=== PATIENT | female | born 1940 | race American Indian/Alaskan Native ===

== ENCOUNTER 2017-03-29 10:19 | Outpatient (CLI) | payer MEDICARE ==
[2017-03-29 10:42] LABS: Mean Corpuscular HGB Conc 34 % (30-34); Mean Corpuscular Hemoglobin 34 pg (28-32); Mean Corpuscular Volume 102 fl (79-97); Red Blood Count 1.65 M/mm3 (3.65-5.03); Red Cell Distribution Width 17.4 % (13.2-15.2); White Blood Count 3.8 K/mm3 (4.5-11.0)
[2017-03-29 10:44] LABS: Platelet Count 86 K/mm3 (140-440)
[2017-03-29 10:55] LABS: Hematocrit 16.8 % (30.3-42.9); Hemoglobin 5.7 gm/dl (10.1-14.3)
[2017-03-29 11:25] LABS: Bilirubin,Urine NEG (Negative); Blood,Urine SM (Negative); Ketones,Urine NEG (Negative); Leukocyte Esterase,Urine TR (Negative); Mucus,Urine FEW /HPF; Nitrite,Urine NEG (Negative); Urobilinogen,Urine < 2.0 mg/dL (<2.0)
[2017-03-29 13:55] LABS: Albumin 3.7 g/dL (3.9-5); Calcium 7.4 mg/dL (8.4-10.2); Phosphorous 5.4 mg/dL (2.5-4.5); Potassium 3.6 mmol/L (3.6-5.0)
== END 2017-03-29 10:20 | disposition home or self-care (01) ==
LOC: LAB 10:19
PROVIDERS: ATTEND Internal Medicine Nephrology
DX: N18.4 Chronic kidney disease, stage 4 (severe) (principal); D63.1 Anemia in chronic kidney disease
CPT/HCPCS: 36415; 80048; 81001; 82040; 82570; 84100; 84156; 85027

== ENCOUNTER 2017-04-10 12:36 | Outpatient (CLI) | payer MEDICARE ==
[2017-04-10 12:44] LABS: Hematocrit 24.9 % (30.3-42.9); Hemoglobin 8.4 gm/dl (10.1-14.3); Mean Corpuscular HGB Conc 34 % (30-34); Mean Corpuscular Hemoglobin 32 pg (28-32); Mean Corpuscular Volume 95 fl (79-97); Platelet Count 119 K/mm3 (140-440); Red Blood Count 2.63 M/mm3 (3.65-5.03); White Blood Count 5.6 K/mm3 (4.5-11.0)
[2017-04-10 12:45] LABS: Red Cell Distribution Width 20.9 % (13.2-15.2)
[2017-04-10 13:02] LABS: Albumin 3.5 g/dL (3.9-5); BUN/Creatinine Ratio 9.26; Calcium 6.9 mg/dL (8.4-10.2); Chloride 104.5 mmol/L (98-107); Phosphorous 5.5 mg/dL (2.5-4.5); Potassium 3.9 mmol/L (3.6-5.0)
== END 2017-04-10 12:37 | disposition home or self-care (01) ==
LOC: LAB 12:36
PROVIDERS: ATTEND Internal Medicine Nephrology
DX: I12.9 Hypertensive chronic kidney disease with stage 1 through stage 4 chronic kidney disease, or unspecified chronic kidney disease (principal); N18.4 Chronic kidney disease, stage 4 (severe); D63.1 Anemia in chronic kidney disease
CPT/HCPCS: 36415; 80048; 82040; 84100; 85027

== ENCOUNTER 2017-04-10 16:44 | Inpatient (IN) | payer MEDICARE ==
[2017-04-10 19:41] LABS: BUN/Creatinine Ratio 10.25; Chloride 102.7 mmol/L (98-107); Potassium 3.6 mmol/L (3.6-5.0)
[2017-04-10 19:52] LABS: Hemoglobin 8.3 gm/dl (10.1-14.3); Mean Corpuscular HGB Conc 33 % (30-34); Mean Corpuscular Hemoglobin 31 pg (28-32); Mean Corpuscular Volume 95 fl (79-97); Platelet Count 117 K/mm3 (140-440); Red Blood Count 2.64 M/mm3 (3.65-5.03); White Blood Count 5.7 K/mm3 (4.5-11.0)
[2017-04-10 19:58] LABS: Red Cell Distribution Width 20.9 % (13.2-15.2)
[2017-04-10] MEDS ORDERED: APRESOLINE IV PRN (20:55)
[2017-04-10] MEDS ORDERED: PERCOCET 5/325 PO PRN (20:56)
--- NOTE | 2017-04-10 21:06 | History and Physical Report ---
History of Present Illness Date of examination: 04/10/17 Date of admission: 04/10/17 18:02 Chief complaint: Feeling tired, bilateral leg swelling History of present illness: 76-year-old -[place] female with past medical history CKD, Hypertension , anemia, multiple myeloma is referred from Dr. Piper's clinic. She has been complaining weakness, bilateral legs and pain in her feet. Patient denied SOB. Patient didn't have any other complaints. The patient has ashy face. 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 REVIEW OF SYSTEMS: GENERAL: no weight change, no fatigue, no fever HEAD: no head ache EYES: no blurry vision, no acute visual loss EARS: no hearing loss, no discharge, no earache NOSE: no stuffiness, no sneezing, no discharge MOUTH, THROAT AND NECK: no bleeding gums, no sore throat, no swollen neck CARDIAC: no palpitations, no dyspnea on exertion, no orthopnea, no PND, + edema , no chest pain RESPIRATORY: no shortness of breath, no wheeze, no cough, no sputum, no hemoptysis, no asthma GI: no decreased appetite, no nausea, no vomiting, no dysphagia, no diarrhea, no constipation, no abdominal pain URINARY: no change in frequency, no urgency, no polyuria, no hematuria, no incontinence MUSCULOSKELETAL: no muscle weakness, no joint stiffness NEUROLOGIC: no loss of sensation/numbness, no tingling, no tremors, no weakness/ paralysis HEMATOLOGIC: no anemia, no easy bruising SKIN: no rashes ENDOCRINE: no heat/cold intolerance, no polyuria, no polydipsia, no thyroid problems, no diabetes PSYCHIATRIC: no anxiety, no depression, no suicidal ideations Past History Past Medical History: cancer, hypertension, renal failure Past Surgical History: hysterectomy Social history: smoking (5 cigaretes a day), full code. denies: alcohol abuse, prescription drug abuse, IV drug use Family history: no significant family history Medications and Allergies Allergies Allergy/AdvReac Type Severity Reaction Status Date / Time No Known Allergies Allergy Unverified 09/15/14 20:53 Home Medications Medication Instructions Recorded Confirmed Last Taken Type Simvastatin 20 mg PO QDAY 09/15/14 03/29/17 08/14/16 History 20mg Allopurinol [Allopurinol] 100 mg PO TID 08/15/16 03/29/1708/15/16 History 100mg Hydrochlorothiazide 25 mg PO DAILY 08/15/16 03/29/17 08/15/16 History [Hydrochlorothiazide] 25mg Aspirin [Aspirin BABY CHEW TAB] 81 mg PO QDAY 03/29/17 03/29/17 Unknown History Lenalidomide [Revlimid] 1 tab PO QDAY 03/29/17 03/29/17 Unknown History Doxazosin Mesylate [Cardura] 2 mg PO QHS #30 tablet 04/01/17 Unknown Rx Folic Acid [Folvite] 1 mg PO QDAY #30 tablet 04/01/17 Unknown Rx Metoprolol [Lopressor TAB] 25 mg PO BID #60 tablet 04/01/17 Unknown Rx Pantoprazole [Protonix TAB] 40 mg PO QDAY #30 tablet 04/01/17 Unknown Rx Pregabalin [Lyrica] 1 tab PO BID #60 capsule 04/01/17 Unknown Rx diphenhydrAMINE [Benadryl CAP] 50 mg PO Q8H PRN #25 capsule 04/01/17 Unknown Rx oxyCODONE /ACETAMINOPHEN [Percocet 1 tab PO Q12H PRN #25 tablet 04/01/17 Unknown Rx 5/325 mg] Active Meds: Active Medications Allopurinol (Zyloprim) 100 mg PO TID [facility] Aspirin (Baby Aspirin) 81 mg PO QDAY [facility] Diphenhydramine HCl (Benadryl) 50 mg PO Q8H PRN PRN Reason: Itching Folic Acid (Folvite) 1 mg PO QDAY [facility] Heparin Sodium (Porcine) (Heparin) 5,000 unit SUB-Q Q12HR [facility] Hydralazine HCl (Apresoline) 20 mg IV Q4HR PRN PRN Reason: Hypertension Hydrochlorothiazide (Hctz) 25 mg PO DAILY [facility] Metoprolol Tartrate (Lopressor) 25 mg PO BID [facility] Miscellaneous Medication (Doxazosin Mesylate [Cardura]) 2 mg PO QHS [facility] Oxycodone/Acetaminophen (Percocet 5/325) 1 tab PO Q12H PRN PRN Reason: Pain Pantoprazole Sodium (Protonix) 40 mg PO QDAY [facility] Pregabalin (Lyrica) 75 mg PO BID [facility] Pregabalin (Lyrica) 25 mg PO BID [facility] Simvastatin (Zocor) 20 mg PO QDAY [facility] Exam - Physical Exam Narrative exam: patient has Ashy face. Not in cardiopulmonary distress. The patient appeared well nourished and normally developed. Vital signs as documented. Head exam is unremarkable. No scleral icterus . Neck is without jugular venous distension, thyromegaly, or carotid bruits. Lungs are clear to auscultation. Cardiac exam reveals regular rate and Rhythm. First and second heart sounds normal. No murmurs, rubs or gallops. Abdominal exam reveals normal bowel sounds, no masses, no organomegaly and no aortic enlargement. Extremities +2 pedal and pretibial edema. PATROL LADY: Alert and oriented 3. No focal weakness. - Constitutional Vitals: Temp Pulse Resp BP Pulse Ox 98.7 F 51 L 20 172/52 04/10/17 19:02 04/10/17 19:02 04/10/17 19:02 04/10/17 19:02 Results - Labs CBC & Chem 7: 04/10/17 19:07 04/10/17 19:07 Labs: Laboratory Last Values WBC 5.7 K/mm3 (4.5-11.0) 04/10/17 19:07 RBC 2.64 M/mm3 (3.65-5.03) L 04/10/17 19:07 Hgb 8.3 gm/dl (10.1-14.3) L 04/10/17 19:07 Hct 25.0 % (30.3-42.9) L 04/10/17 19:07 MCV 95 fl (79-97) 04/10/17 19:07 MCH 31 pg (28-32) 04/10/17 19:07 MCHC 33 % (30-34) 04/10/17 19:07 RDW 20.9 % (13.2-15.2) H 04/10/17 19:07 Plt Count 117 K/mm3 (140-440) L 04/10/17 19:07 Sodium 143 mmol/L (137-145) 04/10/17 19:07 Potassium 3.6 mmol/L (3.6-5.0) 04/10/17 19:07 Chloride 102.7 mmol/L (98-107) 04/10/17 19:07 Carbon Dioxide 23 mmol/L (22-30) 04/10/17 19:07 BUN 40 mg/dL (7-17) H 04/10/17 19:07 Creatinine 3.9 mg/dL (0.7-1.2) H 04/10/17 19:07 Estimated GFR 14 ml/min 04/10/17 19:07 BUN/Creatinine Ratio 10.25 % 04/10/17 19:07 Glucose 96 mg/dL (65-100) 04/10/17 19:07 Calcium 7.0 mg/dL (8.4-10.2) L 04/10/17 19:07 Assessment and Plan Assessment and plan: ESRD needs HD Uremia Anemia of end stage renal disease Multiple myeloma Hyperlipidemia - Patient to be admitted to medical floor - Dr. Piper wants to start dialysis tomorrow - Hematology / oncology consulted - resume home medications - No breathing problems Prophylaxis - Heparin Advance Directives: Yes VTE prophylaxis?: Chemical Plan of care discussed with patient/family: Yes
[2017-04-10] MEDS ORDERED: PREGABALIN PO SCH (22:00)
[2017-04-10] MEDS ORDERED: CARDURA PO SCH (22:00)
[2017-04-10] MEDS: LYRICA PO SCH ×2 (22:26)
[2017-04-10] MEDS: LOPRESSOR PO SCH (22:27)
[2017-04-10] MEDS: HEPARIN SUB-Q SCH (22:28)
[2017-04-11] MEDS: BENADRYL PO PRN (02:49)
--- NOTE | 2017-04-11 07:52 | XRay Report ---
AP CHEST: HISTORY: Fluid overload, shortness of breath No comparison. Mild cardiomegaly with normal pulmonary vascularity is present. The lungs are clear. No large pleural effusion, infiltrate or pneumothorax. IMPRESSION: Mild cardiomegaly.
[2017-04-11] MEDS: HEPARIN SUB-Q SCH ×2 (09:42→21:47)
[2017-04-11] MEDS: FOLVITE PO SCH (09:43)
[2017-04-11] MEDS: BABY ASPIRIN PO SCH (09:43)
[2017-04-11] MEDS: ZOCOR PO SCH (09:44)
[2017-04-11] MEDS: LYRICA PO SCH ×4 (09:45→21:48)
[2017-04-11] MEDS: LOPRESSOR PO SCH ×2 (09:46→21:49)
[2017-04-11] MEDS ORDERED: HCTZ PO SCH (10:00)
[2017-04-11] MEDS ORDERED: PROTONIX PO SCH (10:00)
--- NOTE | 2017-04-11 10:11 | Admit Criteria Form ---
Admission Criteria Documentation: RENAL FAILURE, CHRONIC Clinical Indications for Admission to Inpatient Care (Place 'X' for any and all applicable criteria): Admission is indicated for ANY ONE of the following (1)(2)(3)(4)(5): [X]I. Inpatient admission required rather than observation care (Use Renal Failure, Chronic: Observation Care Criteria as appropriate) because of ANY ONE of the following: [X]a) Volume overload or uremic symptoms (eg, clinically significant pulmonary edema, hypertension, pericarditis, acidosis) too severe for, or not responsive (eg, for over 24 hours) to emergency department or observation care dialysis or treatment regimen (11) [ ]b) Hemodynamic instability that is severe or persistent [ ]c) Respiratory distress that is severe or persistent (11) [ ]d) Clinically significant electrolyte abnormality that requires inpatient care (eg,hyperkalemia with severe ECG findings)[B] [ ]e) Supplement O2 or respiratory therapy for over 24hrs that is performable only in acute inpatient setting [ ]f) Continuous IV infusion of anticoagulation, platelet inhibitor, vasoactive, or Antiarrhythmic medication (15), [ ]g) Pulmonary artery catheter monitoring [ ]h) Temporary pacemaker placement [ ]i) Emergent pericardiocentesis [ ]j) Other condition, treatment or monitoring requiring inpatient admission [ ]II. Unexplained syncope [A] [ ]III. Recurrent seizures [ ]IV. Severe infections not treatable in outpatient setting (eg, peritonitis)(9 ) [ ]V. Cardiac arrhythmias of immediate concern [ ]. Encephalopathy [ ]VII.Bleeding abnormalities (eg, platelet dysfunction) with active (eg, gastrointestinal) bleeding Extended stay beyond goal length of stay may be needed for (3)(4)(35)(36): [ ]a) Continuing uremic complications [ ]b) Comorbidities or complications The original [employer] content created by [employer] has been revised. The portions of the content which have been revised are identified through the use of italic text or in bold, and [email or web address] has neither reviewed nor approved the modified material. All other unmodified content is copyright [employer]. Please see references footnoted in the original [email or web address] edition 2016 Admission Criteria Met: Yes
[2017-04-11] MEDS: ZYLOPRIM PO SCH (14:45)
--- NOTE | 2017-04-11 15:49 | Consultation ---
History of Present Illness - History of Present Illness Thank you for the consultation Patient was evaluated around 9:45 in the morning Care plan was discussed with patient as well as the daughters at the bedside Assessment and plan Acute on chronic renal failure patient has been symptomatic with COPD but currently creatinine has been improving I do not see any emergent indication for renal replacement therapy as patient clinically appears to be doing better At this time she will need a 24-hour urine for protein and creatinine as well as creatinine clearance If her renal function remained stable we can consider initiating diuresis She is in need for further workup of her acute renal failure that has been on top of chronic baseline creatinine has been around 2 or less Discussed with her oncologist Dr. khalil and according to him her myeloma has been in remission, we'll order new immunofixation Significant edema bilateral lower extremity please consider a venous Doppler to make sure the patient does not have DVT We'll continue to follow and make recommendations from renal standpoint It has been noted that patient has been very poorly compliant with her diet and lifestyle and needs to make significant changes Her renal prognosis and overall prognosis remains very guarded due to multiple comorbidities and advanced age Families aware about her prognosis overall along with the patient the care plan was discussed with her permission with 2 other daughters syndrome Past History Past Medical History: cancer, hypertension, renal failure Past Surgical History: hysterectomy Social history: smoking (5 cigaretes a day), full code. denies: alcohol abuse, prescription drug abuse, IV drug use Family history: no significant family history Medications and Allergies Allergies Allergy/AdvReac Type Severity Reaction Status Date / Time No Known Allergies Allergy Unverified 09/15/14 20:53 Home Medications Medication Instructions Recorded Confirmed Last Taken Type Simvastatin 20 mg PO QDAY 09/15/14 03/29/17 08/14/16 History 20mg Allopurinol [Allopurinol] 100 mg PO QDAY 08/15/16 04/10/17 08/15/16 History 100mg Hydrochlorothiazide 25 mg PO DAILY 08/15/16 03/29/17 08/15/16 History [Hydrochlorothiazide] 25mg Aspirin [Aspirin BABY CHEW TAB] 81 mg PO QDAY 03/29/17 03/29/17 Unknown History Doxazosin Mesylate [Cardura] 2 mg PO QHS #30 tablet 04/01/17 Unknown Rx Folic Acid [Folvite] 1 mg PO QDAY #30 tablet 04/01/17 Unknown Rx Metoprolol [Lopressor TAB] 25 mg PO BID #60 tablet 04/01/17 Unknown Rx Pantoprazole [Protonix TAB] 40 mg PO QDAY #30 tablet 04/01/17 Unknown Rx Pregabalin [Lyrica] 1 tab PO BID #60 capsule 04/01/17 Unknown Rx diphenhydrAMINE [Benadryl CAP] 50 mg PO Q8H PRN #25 capsule 04/01/17 Unknown Rx oxyCODONE /ACETAMINOPHEN [Percocet 1 tab PO Q12H PRN #25 tablet 04/01/17 Unknown Rx 5/325 mg] Amlodipine Besylate 10 mg PO QDAY 04/10/17 04/10/17 Unknown History Active Meds: Active Medications Allopurinol (Zyloprim) 100 mg PO DAILY [facility] [place] Last Admin: 04/11/17 14:45 Dose: 100 mg Aspirin (Baby Aspirin) 81 mg PO QDAY [facility] Last Admin: 04/11/17 09:43 Dose: 81 mg Diphenhydramine HCl (Benadryl) 50 mg PO Q8H PRN PRN Reason: Itching Last Admin: 04/11/17 02:49 Dose: 50 mg Doxazosin Mesylate (Cardura) 2 mg PO QHS [facility] Last Admin: 04/10/17 22:26 Dose: 2 mg Folic Acid (Folvite) 1 mg PO QDAY [facility] [place] Last Admin: 04/11/17 09:43 Dose: 1 mg Heparin Sodium (Porcine) (Heparin) 5,000 unit SUB-Q Q12HR [facility] [place] Last Admin: 04/11/17 09:42 Dose: 5,000 unit Hydralazine HCl (Apresoline) 20 mg IV Q4HR PRN PRN Reason: Hypertension Hydrochlorothiazide (Hctz) 25 mg PO DAILY [facility] Last Admin: 04/11/17 09:44 Dose: 25 mg Metoprolol Tartrate (Lopressor) 25 mg PO BID [facility] Last Admin: 04/11/17 09:46 Dose: Not Given Oxycodone/Acetaminophen (Percocet 5/325) 1 tab PO Q12H PRN PRN Reason: Pain Pantoprazole Sodium (Protonix) 40 mg PO QDAY [facility] [place] Last Admin: 04/11/17 09:44 Dose: 40 mg Pregabalin (Lyrica) 75 mg PO BID [facility] Last Admin: 04/11/17 09:45 Dose: 75 mg Pregabalin (Lyrica) 25 mg PO BID [facility] Last Admin: 04/11/17 09:51 Dose: 25 mg Simvastatin (Zocor) 20 mg PO QDAY [facility] Last Admin: 04/11/17 09:44 Dose: 20 mg Exam - Vital Signs Vital signs: Vital Signs Temp Pulse Resp BP 98.7 F 51 L 20 172/52 04/10/17 19:02 04/10/17 19:02 04/10/17 19:02 04/10/17 19:02 Results - Lab Results 04/10/17 19:07 04/10/17 19:07 Most recent lab results Calcium 7.0 mg/dL (8.4-10.2) L 04/10/17 19:07
--- NOTE | 2017-04-11 17:29 | Progress Note ---
Assessment and Plan Assessment and plan: I admitted patient on 03/29/2017 for symptomatic anemia, She was discharged on by Dr. Todd. Patient is 76 yo woman with a history MMM (patient was told MMM was in remission ), htn, dlp, gout, neuropathy, chronic anemia, tobacco dependency, chronic pain syndrome and chronic kidney disease stage III with baseline creatinine 1.7 who presents as a direct admit from Dr. Piper to start hemodialysis by Hospitalist Dr. Kennedy. Her Primary care is Dr. Julian; Hematology/oncology is Dr Ryan/ Dr Michael at [facility] -Worsening CK D stage III: Nephrology is following, order a 24-hour urine for protein -Hypertension: continue to monitor -Bilateral leg edema, Dr. Piper mention venous doppler: will order -MMM: Dr. Piper ordering immunofixation studies. -DVT prophylaxis: scd only due to thrombocytopenia, heme/onc has been consulted History Interval history: Patient seen and examined. Follow up on acute renal failure. Overnight uneventful. No cp, sob, n/v or severe headaches. Imaging, old records, testing, labs, nursing notes reviewed. Daughters Ly and Agustina at bedside. Daughter Ly is very vulgar and using foul language==>She states, "i don't like this rotating doctors, we saw that analisa Mcgregor chinmay and we say this Piper chinmay and I just don't like it." Then she left the hospital room. Hospitalist Physical - Physical exam Narrative exam: GEN: WDWN, NAD, AWAKE, ALERT, ORIENTATED 3 CVS: RRR, NORMAL S1S2 LUNGS/CHEST: CTA B, NORMAL CHEST EXPANSION B, GOOD AIR ENTRY B ABD: SOFT NTND, GBS, NO REBOUND OR GUARDING MSK: FROM X 4 EXTREMITIES EXT: Significant bilateral leg edema NEURO: CN 2-12 GROSSLY INTACT, NO new FOCAL DEFICITS PSY: CALM - Constitutional Vitals: Temp Pulse Resp BP Pulse Ox 99.9 F H 57 L 18 147/50 04/11/17 09:43 04/11/17 09:46 04/11/17 09:43 04/11/17 09:46 Results - Labs CBC & Chem 7: 04/10/17 19:07 04/10/17 19:07 Labs: Laboratory Last Values WBC 5.7 K/mm3 (4.5-11.0) 04/10/17 19:07 RBC 2.64 M/mm3 (3.65-5.03) L 04/10/17 19:07 Hgb 8.3 gm/dl (10.1-14.3) L 04/10/17 19:07 Hct 25.0 % (30.3-42.9) L 04/10/17 19:07 MCV 95 fl (79-97) 04/10/17 19:07 MCH 31 pg (28-32) 04/10/17 19:07 MCHC 33 % (30-34) 04/10/17 19:07 RDW 20.9 % (13.2-15.2) H 04/10/17 19:07 Plt Count 117 K/mm3 (140-440) L 04/10/17 19:07 Sodium 143 mmol/L (137-145) 04/10/17 19:07 Potassium 3.6 mmol/L (3.6-5.0) 04/10/17 19:07 Chloride 102.7 mmol/L (98-107) 04/10/17 19:07 Carbon Dioxide 23 mmol/L (22-30) 04/10/17 19:07 BUN 40 mg/dL (7-17) H 04/10/17 19:07 Creatinine 3.9 mg/dL (0.7-1.2) H 04/10/17 19:07 Estimated GFR 14 ml/min 04/10/17 19:07 BUN/Creatinine Ratio 10.25 % 04/10/17 19:07 Glucose 96 mg/dL (65-100) 04/10/17 19:07 Calcium 7.0 mg/dL (8.4-10.2) L 04/10/17 19:07 Hepatitis A IgM Ab Non-reactive (NonReactive) 04/11/17 10:33 Hep Bs Antigen Non-reactive (Negative) 04/11/17 10:33 Hep B Core IgM Ab Non-reactive (NonReactive) 04/11/17 10:33 Hepatitis C Antibody Reactive (NonReactive) 04/11/17 10:33
[2017-04-11] MEDS ORDERED: CARDURA PO SCH ×2 (21:08→22:00)
--- NOTE | 2017-04-12 07:49 | Ultrasound Report ---
ULTRASOUND RENAL BILATERAL HISTORY: Worsening renal failure. TECHNIQUE: transabdominal ultrasound with color Doppler interrogation. FINDINGS: The right kidney measures 10.0 x 5.0 x 4.5cm. Right renal cortex: 1.3cm. The left kidney measures 11.9 x 5.0 x 5.4cm. Left renal cortex: 1.5cm. The kidneys are normal size, contour and position. There is increased renal parenchymal echotexture bilaterally. Corticomedullary differentiation is preserved. No evidence for cystic disease, mass, nephrolithiasis, hydronephrosis or perinephric fluid. The views of the bladder and the region of the ureters appear normal. IMPRESSION: Renal parenchymal disease. No significant change is demonstrated since 03/30/17.
[2017-04-12] MEDS: ZYLOPRIM PO SCH (10:27)
[2017-04-12] MEDS: LYRICA PO SCH ×2 (10:27→10:28)
[2017-04-12] MEDS: ZOCOR PO SCH (10:28)
[2017-04-12] MEDS: BABY ASPIRIN PO SCH (10:28)
[2017-04-12] MEDS: FOLVITE PO SCH (10:29)
[2017-04-12] MEDS: LOPRESSOR PO SCH (10:29)
[2017-04-12] MEDS: HEPARIN SUB-Q SCH (10:29)
[2017-04-12 10:32] VITALS: BP 149/50
[2017-04-12] MEDS: BENADRYL PO PRN (11:11)
--- NOTE | 2017-04-12 12:38 | Progress Note ---
Assessment and Plan Assessment and plan: I admitted patient on 03/29/2017 for symptomatic anemia, She was discharged on by Dr. Todd. Patient is 76 yo woman with a history MMM (patient was told MMM was in remission ), htn, dlp, gout, neuropathy, chronic anemia, tobacco dependency, chronic pain syndrome and chronic kidney disease stage III with baseline creatinine 1.7 who presents as a direct admit from Dr. Piper to start hemodialysis by Hospitalist Dr. Kennedy. Her Primary care is Dr. Julian; Hematology/oncology is Dr Ryan/ Dr Michael at [facility] -Worsening CK D stage III: Nephrology is following, order a 24-hour urine for protein -Hypertension: continue to monitor -Bilateral leg edema, Dr. Piper mention venous doppler: will order -MMM: Dr. Piper ordering immunofixation studies. -DVT prophylaxis: scd only due to thrombocytopenia, heme/onc has been consulted discharge once cleared by Renal, ?vas cath placement History Interval history: Patient seen and examined. Follow up on acute renal failure. Overnight uneventful. No cp, sob, n/v or severe headaches. Imaging, old records, testing, labs, nursing notes reviewed. Daughter Ly at bedside, she is very rude and nasty. She is very abrusive and argumentative with her mother. Daughter started yelling at her mother, "you get dementia when you get here, you don't nothing". Hospitalist Physical - Physical exam Narrative exam: GEN: WDWN, NAD, AWAKE, ALERT, ORIENTATED 3 CVS: RRR, NORMAL S1S2 LUNGS/CHEST: CTA B, NORMAL CHEST EXPANSION B, GOOD AIR ENTRY B ABD: SOFT NTND, GBS, NO REBOUND OR GUARDING MSK: FROM X 4 EXTREMITIES EXT: Significant bilateral leg edema NEURO: CN 2-12 GROSSLY INTACT, NO new FOCAL DEFICITS PSY: CALM - Constitutional Vitals: Temp Pulse Resp BP Pulse Ox 98.2 F 60 18 149/50 98 04/12/17 10:00 04/12/17 10:29 04/12/17 10:00 04/12/17 10:29 04/12/17 10:00 Results - Labs CBC & Chem 7: 04/10/17 19:07 04/10/17 19:07 Labs: Laboratory Last Values WBC 5.7 K/mm3 (4.5-11.0) 05/22/17 19:07 RBC 2.64 M/mm3 (3.65-5.03) L 04/10/17 19:07 Hgb 8.3 gm/dl (10.1-14.3) L 04/10/17 19:07 Hct 25.0 % (30.3-42.9) L 04/10/17 19:07 MCV 95 fl (79-97) 04/10/17 19:07 MCH 31 pg (28-32) 04/10/17 19:07 MCHC 33 % (30-34) 04/10/17 19:07 RDW 20.9 % (13.2-15.2) H 04/10/17 19:07 Plt Count 117 K/mm3 (140-440) L 04/10/17 19:07 Sodium 143 mmol/L (137-145) 04/10/17 19:07 Potassium 3.6 mmol/L (3.6-5.0) 04/10/17 19:07 Chloride 102.7 mmol/L (98-107) 04/10/17 19:07 Carbon Dioxide 23 mmol/L (22-30) 04/10/17 19:07 BUN 40 mg/dL (7-17) H 04/10/17 19:07 Creatinine 3.9 mg/dL (0.7-1.2) H 04/10/17 19:07 Estimated GFR 14 ml/min 04/10/17 19:07 BUN/Creatinine Ratio 10.25 % 04/10/17 19:07 Glucose 96 mg/dL (65-100) 04/10/17 19:07 Calcium 7.0 mg/dL (8.4-10.2) L 04/10/17 19:07 Hepatitis A IgM Ab Non-reactive (NonReactive) 04/11/17 10:33 Hep Bs Antigen Non-reactive (Negative) 04/11/17 10:33 Hep B Core IgM Ab Non-reactive (NonReactive) 04/11/17 10:33 Hepatitis C Antibody Reactive (NonReactive) 04/11/17 10:33
--- NOTE | 2017-04-12 12:44 | Discharge Summary ---
Providers - Providers Date of Admission: 04/10/17 18:02 Date of discharge: 04/12/17 Attending physician: ALEX MONTANEZ 04/10/17 18:05 Consult to Physician [CONS] Routine Consulting Provider: BAYRON PIPER Reason For Exam: ACUTE RENAL FAILURE, [place], Place consult to:: DR. BAYRON PIPER Notified:: Phone number called:: [phone] Was contact made?: Yes If yes, spoke with:: NATACHA Time called:: 09:21 04/10/17 18:31 Consult to Physician [CONS] Routine Consulting Provider: JARET BUCK Reason For Exam: myeloma Place consult to:: Notified:: Phone number called:: [phone] Was contact made?: Yes If yes, spoke with:: NATE Time called:: 09:26 Primary care physician: [employer] Hospitalization Condition: Stable Hospital course: Patient is 76 yo woman with a history MMM (patient was told MMM was in remission ), htn, dlp, gout, neuropathy, chronic anemia, tobacco dependency, chronic pain syndrome and chronic kidney disease stage III with baseline creatinine 1.7 who presents as a direct admit from Dr. Piper to start hemodialysis by Hospitalist Dr. Kennedy. Her Primary care is Dr. Julian; Hematology/oncology is Dr Ryan/ Dr Michael at [facility]. I admitted patient on 03/29/2017 for symptomatic anemia, She was discharged on 04/01/[address] Todd. -Worsening CK D stage III: Nephrology is following, order a 24-hour urine collected, Dr. Piper will follow results -Hypertension: continue to monitor -Bilateral leg edema, Dr. Piper mention B. venous doppler: will order, negative for dvt, d/w Dr. ray get echo and she will follow the results per Dr. Ray -MMM: Dr. Piper ordering immunofixation studies. -DVT prophylaxis: scd only due to thrombocytopenia, heme/onc has been consulted discharge once cleared by Renal, ?vas cath placement Disposition: DISCHARGED TO HOME OR SELFCARE Time spent for discharge: 36 minutes Core Measure Documentation - Palliative Care Palliative Care/ Comfort Measures: Not Applicable - Core Measures Any of the following diagnoses?: none - VTE Discharge Requirements Deep Vein Thrombosis/Pulmonary Embolism Present on Admission: No Has pt received <5 days of overlap therapy or INR<2.0: No Anticoagulant overlap therapy prescribed at discharge: No Contraindication No Overlap Therapy order at DC: Not Indicated Exam - Physical Exam Narrative exam: GEN: WDWN, NAD, AWAKE, ALERT, ORIENTATED 3 CVS: RRR, NORMAL S1S2 LUNGS/CHEST: CTA B, NORMAL CHEST EXPANSION B, GOOD AIR ENTRY B ABD: SOFT NTND, GBS, NO REBOUND OR GUARDING MSK: FROM X 4 EXTREMITIES EXT: Significant bilateral leg edema NEURO: CN 2-12 GROSSLY INTACT, NO new FOCAL DEFICITS PSY: CALM - Constitutional Vitals: Temp Pulse Resp BP Pulse Ox 98.2 F 60 18 149/50 98 04/12/17 10:00 04/12/17 10:29 04/12/17 10:00 04/12/17 10:29 04/12/17 10:00 Plan Activity: advance as tolerated (no strenous activites until cleared by PCP. ) Diet: low salt Follow up with: PRIMARY CAREMD [Primary Care Provider] - 7 Days Prescriptions: oxyCODONE /ACETAMINOPHEN [Percocet 5/325 mg] 1 tab PO Q12H PRN #25 tablet PRN Reason: Pain
--- NOTE | 2017-04-12 12:53 | Progress Note ---
Assessment and Plan - Patient Problems (1) Acute on chronic renal insufficiency Current Visit: No Status: Acute Plan to address problem: non oliguric, may be prerenal or CKD progression. No acute indication for dialysis at present. Will follow up as outpt, get AVF for future dialysis. Daughter is concerned about pedal edema- may try small dose of loop diuretic. Check LVEF and venous duplex study of lower extremities. 24 hr urine cr.cl- inaccurate-spoke with lab. Discussed with -hospitalist. Advised pt on low salt diet (2) Edema Current Visit: Yes Status: Acute Qualifiers: Edema type: E Malnutrition edema type: M Trimester: T (3) Anemia in CKD (chronic kidney disease) Current Visit: Yes Status: Acute Plan to address problem: procrit as ordered. Pt is followed by for anemia with weekly Epogen shots (4) Multiple myeloma Current Visit: No Status: Acute Qualifiers: Multiple myeloma remission status: M Subjective Date of service: 04/12/17 Interval history: pt is alert, oriented, denies CP or SOB. C/O swelling over feet-same Objective - Vital Signs Vital signs: Vital Signs - 12hr 04/12/17 04/12/17 04/12/17 01:11 10:00 10:29 Temperature 98.2 F Pulse Rate 54 L 60 Pulse Rate [ 60 Left] Respiratory 18 Rate Blood Pressure 168/58 149/50 Blood Pressure 149/50 [Left Arm] O2 Sat by Pulse 98 Oximetry - General Appearance General appearance: well-developed EENT: mucous membranes moist Neck: no JVD, no thyromegaly Respiratory: Present: Clear to Ascultation Cardiology: regular, systolic murmur Gastrointestinal: normoactive bowel sounds Neurologic: alert and oriented x3 Musculoskeletal: other (1+ edema on dorsum of feet) Psychiatric: mood/affect appropriate, cooperative - Lab 04/10/17 19:07 04/10/17 19:07 Most recent lab results Calcium 7.0 mg/dL (8.4-10.2) L 04/10/17 19:07 - Imaging Kidney/bladder ultrasound: report reviewed
[2017-04-12] MEDS ORDERED: PROCRIT SUB-Q ONE (15:00)
--- NOTE | 2017-04-13 08:21 | Vascular Lab Report ---
LOWER EXTREMITY VENOUS DUPLEX: REASON FOR EXAM: Swelling of the lower extremities. COMMENTS ON THE RIGHT: All veins visualized are freely compressible without evidence of internal echogenicity. Flow is spontaneous and phasic throughout. COMMENTS ON THE LEFT: All veins visualized are freely compressible without evidence of internal echogenicity. Flow is spontaneous and phasic throughout. IMPRESSION: No evidence of acute or chronic deep venous thrombosis in either lower extremity.
== END 2017-04-12 17:38 | disposition home or self-care (01) | DRG 682 ==
LOC: ED 16:44 → 3A 18:02 → CC2 18:37
PROVIDERS: ADMIT Internal Medicine; ATTEND Internal Medicine
DX: I12.0 Hypertensive chronic kidney disease with stage 5 chronic kidney disease or end stage renal disease (principal); N18.6 End stage renal disease; N17.9 Acute kidney failure, unspecified; C90.00 Multiple myeloma not having achieved remission; D63.1 Anemia in chronic kidney disease; E78.5 Hyperlipidemia, unspecified; D64.9 Anemia, unspecified; F17.210 Nicotine dependence, cigarettes, uncomplicated; J44.9 Chronic obstructive pulmonary disease, unspecified; G89.4 Chronic pain syndrome; M10.9 Gout, unspecified; G62.9 Polyneuropathy, unspecified; Z85.9 Personal history of malignant neoplasm, unspecified; Z90.710 Acquired absence of both cervix and uterus
CPT/HCPCS: 36415; 71010; 76770; 80048; 80074; 82040; 82565; 82570; 82575; 84100; 85027; 86038; 86334; 93306; 93970; J0360; J0885; J1644

== ENCOUNTER 2017-08-15 10:35 | Inpatient (IN) | payer MEDICARE ==
[2017-08-15] MEDS ORDERED: NACL 0.9% 100 ML IV PRN ×2 (12:03→15:57)
[2017-08-15] MEDS ORDERED: DULCOLAX PR PRN (12:39)
[2017-08-15] MEDS ORDERED: MILK OF MAGNESIA PO PRN (12:39)
[2017-08-15] MEDS ORDERED: PROVENTIL IH PRN (12:39)
[2017-08-15] MEDS ORDERED: ZOFRAN IV PRN (12:39)
[2017-08-15] MEDS ORDERED: TYLENOL PO PRN (12:39)
--- NOTE | 2017-08-15 12:39 | History and Physical Report ---
History of Present Illness Date of admission: 08/15/17 12:12 Chief complaint: My kidneys are not working History of present illness: 76 YO Female with ESRD starting HD today, MM, HTN, Gout, Neuropathy, Anemia, admitted directly to hospitalist service as the request of Dr. Marie for progression of CKD 5 to ESRD requiring dialysis. Pt to have dialysis access catheter placed and then undergo dialysis. Pt seen and evaluated upon arrival. Pt denies fever, chills, CP, Palpitations, NVD, Shortness of Breath,Productive cough, or recent ill contacts. Past History Past Medical History: anemia, cancer, hypertension, renal failure Past Surgical History: hysterectomy Social history: . denies: smoking, alcohol abuse, prescription drug abuse Family history: diabetes, hypertension Medications and Allergies Allergies Allergy/AdvReac Type Severity Reaction Status Date / Time No Known Allergies Allergy Unverified 09/15/14 20:53 Home Medications Medication Instructions Recorded Confirmed Last Taken Type Simvastatin 20 mg PO HS 09/15/14 08/15/17 08/14/17 21:00 History Allopurinol 100 mg PO QDAY 08/15/16 08/15/17 08/15/17 10:00 History Hydrochlorothiazide 25 mg PO DAILY 08/15/16 08/15/17 08/15/17 10:00 History Aspirin [Aspirin BABY CHEW TAB] 81 mg PO QDAY 03/29/17 08/15/17 08/14/17 10:00 History Doxazosin Mesylate [Cardura] 2 mg PO QHS #30 tablet 04/01/17 08/15/17 08/14/17 21:00 Rx Metoprolol [Lopressor TAB] 25 mg PO BID #60 tablet 04/01/17 08/15/17 08/14/17 21 :00 Rx Pregabalin [Lyrica] 1 tab PO BID #60 capsule 04/01/17 08/15/17 08/14/17 Rx Amlodipine Besylate 10 mg PO QDAY 04/10/17 08/15/17 08/15/17 10:00 History Calcitriol [Rocaltrol] 0.25 mcg PO DAILY 08/15/17 08/15/17 08/15/17 10:00 History oxyCODONE /ACETAMINOPHEN [Percocet 5 - 325 mg PO Q12H PRN 08/15/17 08/15/17 18:00 History 5/325 mg] Active Meds: Active Medications Sodium Chloride (Nacl 0.9%) 100 mls @ 999 mls/hr IV VALARIE PRN PRN Reason: Hypotension Review of Systems Constitutional: no weight loss, no weight gain, no fever, no chills Ears, nose, mouth and throat: no ear pain, no ear discharge, no tinnitis, no decreased hearing, no nose pain Breasts: no change in shape, no swelling, no mass Cardiovascular: no chest pain, no orthopnea, no rapid/irregular heart beat, no edema, no syncope Respiratory: no cough, no cough with sputum, no excessive sputum, no hemoptysis , no shortness of breath Gastrointestinal: no abdominal pain, no nausea, no vomiting, no diarrhea Genitourinary Female: no pelvic pain, no flank pain, no menorrhagia, no dysuria , no urinary frequency Rectal: no pain, no incontinence, no bleeding Musculoskeletal: no neck stiffness, no neck pain, no shooting arm pain, no arm numbness/tingling, no low back pain, no shooting leg pain Integumentary: no rash, no pruritis, no redness, no sores, no wounds, no jaundice Neurological: no head injury, no transient paralysis, no paralysis, no weakness , no parathesias, no numbness Psychiatric: no anxiety, no memory loss, no insomnia, no hypersomnia, no change in appetite Endocrine: no cold intolerance, no heat intolerance, no polyphagia, no excessive thirst, no polydipsia, no polyuria, no nocturia Hematologic/Lymphatic: no easy bruising, no easy bleeding Allergic/Immunologic: no urticaria, no allergic rhinitis, no wheezing Exam - Constitutional General appearance: Present: mild distress - EENT Eyes: Present: PERRL ENT: hearing intact, clear oral mucosa - Neck Neck: Present: supple, normal ROM - Respiratory Respiratory: bilateral: diminished - Cardiovascular Heart Sounds: Present: S1 & S2. Absent: rub, click - Extremities Extremities: pulses symmetrical, No edema Extremity abnormal: edema Peripheral Pulses: within normal limits - Abdominal General gastrointestinal: Present: soft, non-tender, non-distended, normal bowel sounds Female genitourinary: Present: normal - Integumentary Integumentary: Present: clear, warm, dry - Musculoskeletal Musculoskeletal: gait normal, strength equal bilaterally - Psychiatric Psychiatric: appropriate mood/affect, intact judgment & insight - Neurologic Neurologic: CNII-XII intact, moves all extremities Results - Labs CBC & Chem 7: 08/15/17 13:06 08/15/17 13:06 Assessment and Plan - Patient Problems (1) ESRD (end stage renal disease) Current Visit: Yes Status: Acute Plan to address problem: Nephrology consulted, dialysis as per renal team, vascular team consulted for permacath placement, (2) Anemia Current Visit: Yes Status: Acute Qualifiers: Anemia type: A Iron deficiency anemia type: I Vitamin B12 deficiency anemia type: V Folate deficiency anemia type: F Bone marrow failure anemia type: B Hemolytic anemia type: H Other causes of anemia: O Chronic kidney disease stage: C Plan to address problem: secondary to ESRD, Continue to monitor, epogen as per renal team. (3) Neuropathy Current Visit: Yes Status: Acute Plan to address problem: resume home medication, continue current therapy (4) Multiple myeloma Current Visit: No Status: Acute Qualifiers: Multiple myeloma remission status: M Plan to address problem: continue current care, stable at this time, outpatient oncology f/u. (5) DVT prophylaxis Current Visit: Yes Status: Acute
[2017-08-15 13:17] LABS: Basophils % (Auto) 0.6 % (0.0-1.8); Eosinophils % (Auto) 5.6 % (0.0-4.3); Hematocrit 25.9 % (30.3-42.9); Hemoglobin 8.9 gm/dl (10.1-14.3); Mean Corpuscular HGB Conc 34 % (30-34); Mean Corpuscular Hemoglobin 35 pg (28-32); Mean Corpuscular Volume 102 fl (79-97); Platelet Count 145 K/mm3 (140-440); Red Blood Count 2.55 M/mm3 (3.65-5.03); Red Cell Distribution Width 14.1 % (13.2-15.2); White Blood Count 5.7 K/mm3 (4.5-11.0)
[2017-08-15 13:28] LABS: INR 1.01 (0.87-1.13)
[2017-08-15 13:42] LABS: Albumin 4.1 g/dL (3.9-5); Albumin/Globulin Ratio 1.8 %; BUN/Creatinine Ratio 15.38; Bilirubin,Total 0.2 mg/dL (0.1-1.2); Calcium 8.7 mg/dL (8.4-10.2); Chloride 105.1 mmol/L (98-107); Potassium 4.7 mmol/L (3.6-5.0); Total Protein 6.4 g/dL (6.3-8.2)
--- NOTE | 2017-08-15 13:54 | Consultation ---
History of Present Illness - Reason for Consult Consult date: 08/15/17 end stage renal disease - History of Present Illness Patient is a 76 YO AAF with medical history significant for CKD stage 5, Hypertension, Anemia, Proteinuria, Hyperlipidemia, Multiple Myeloma and Hyperuricemia was sent to the hospital from my office to initiate hemodialysis. Patient is well known to our service and followed by us for CKD stage 5. Today she presented with 2 weeks h/o strange taste in the tongue, decreased PO intake and 4.5 lb weight loss. Patient's sympotms suggestive of Uremia. She agreed to be started on hemodialysis. Past History Past Medical History: anemia, cancer (Multiple Myeloma), ESRD, hypertension, hyperlipidemia, other (Gout) Medications and Allergies Allergies Allergy/AdvReac Type Severity Reaction Status Date / Time No Known Allergies Allergy Unverified 09/15/14 20:53 Home Medications Medication Instructions Recorded Confirmed Last Taken Type Simvastatin 20 mg PO HS 09/15/14 08/15/17 08/14/17 21:00 History Allopurinol 100 mg PO QDAY 08/15/16 08/15/17 08/15/17 10:00 History Hydrochlorothiazide 25 mg PO DAILY 08/15/16 08/15/17 08/15/17 10:00 History Aspirin [Aspirin BABY CHEW TAB] 81 mg PO QDAY 03/29/17 08/15/17 08/14/17 10:00 History Doxazosin Mesylate [Cardura] 2 mg PO QHS #30 tablet 04/01/17 08/15/17 08/14/17 21:00 Rx Metoprolol [Lopressor TAB] 25 mg PO BID #60 tablet 04/01/17 08/15/17 08/14/17 21 :00 Rx Pregabalin [Lyrica] 1 tab PO BID #60 capsule 04/01/17 08/15/17 08/14/17 Rx Amlodipine Besylate 10 mg PO QDAY 04/10/17 08/15/17 08/15/17 10:00 History Calcitriol [Rocaltrol] 0.25 mcg PO DAILY 08/15/17 08/15/17 08/15/17 10:00 History oxyCODONE /ACETAMINOPHEN [Percocet 5 - 325 mg PO Q12H PRN 08/15/17 08/15/17 18:00 History 5/325 mg] Active Meds: Active Medications Acetaminophen (Tylenol) 650 mg PO Q4H PRN PRN Reason: Pain MILD(1-3)/Fever >100.5/HURTADO Albuterol (Proventil) 2.5 mg IH Q4HRT PRN PRN Reason: Shortness Of Breath Bisacodyl (Dulcolax) 10 mg [place] QDAY PRN PRN Reason: Constipation unrelieved by MOM Sodium Chloride (Nacl 0.9%) 100 mls @ 999 mls/hr IV VALARIE PRN PRN Reason: Hypotension Cefazolin Sodium (Ancef/Sterile Water 2 Gm/20 Ml) 2 gm in 20 mls @ 80 mls/hr IV PREOP NR PRN Reason: Protocol Stop: 08/15/17 14:14 Magnesium Hydroxide (Milk Of Magnesia) 30 ml PO Q4H PRN PRN Reason: Constipation Ondansetron HCl (Zofran) 4 mg IV Q8H PRN PRN Reason: N/V unrelieved by Reglan Review of Systems Constitutional: weight loss, anorexia, malaise, poor appetite, no weight gain, no fever, no chills, no weakness Ears, nose, mouth and throat: no epistaxis, no sore throat Breasts: deferred Cardiovascular: high blood pressure, no chest pain, no orthopnea, no palpitations, no edema, no syncope, no lightheadedness, no shortness of breath, no leg edema Respiratory: no cough, no hemoptysis, no shortness of breath Gastrointestinal: nausea, no abdominal pain, no vomiting, no diarrhea, no hematemesis, no melena Genitourinary Female: no dysuria, no hematuria Rectal: no bleeding Musculoskeletal: no redness of joints Integumentary: no rash, no redness, no jaundice Neurological: no paralysis, no weakness Psychiatric: no anxiety, no hallucinations Endocrine: weight change Hematologic/Lymphatic: no easy bruising, no easy bleeding Exam - Vital Signs Vital signs: Vital Signs Temp Pulse Resp BP Pulse Ox 97.6 F 49 L 16 142/56 97 08/15/17 13:14 08/15/17 13:14 08/15/17 13:14 08/15/17 13:14 08/15/17 13:14 - General Appearance General appearance: well-developed, appears stated age, other (no distress) EENT: ATNC, PERRL, hearing intact, vision intact Neck: Present: neck supple, trachea midline Respiratory: Clear to Ascultation Heart: regular, S1S2, no murmurs Gastrointestinal: Present: normoactive bowel sounds. Absent: tenderness, distended Integumentary: no rash Neurologic: no focal deficit, no asterixis, alert and oriented x3, CN 3-12 intact Musculoskeletal: Present: other (no edema) Psychiatric: mood/affect appropriate, cooperative Results - Lab Results 08/16/17 02:24 08/15/17 13:06 Most recent lab results Calcium 8.7 mg/dL (8.4-10.2) 08/15/17 13:06 Assessment and Plan - Patient Problems (1) ESRD (end stage renal disease) Current Visit: Yes Status: Chronic Plan to address problem: CKD stage 5 has progressed to ESRD. Symptoms are very suggestive of Uremia. Admitted to initiate hemodialysis. Discussed with for placing hemodialysis catheter. HD orders written. (2) Acute on chronic renal insufficiency Current Visit: No Status: Chronic Plan to address problem: Epogen. (3) HTN (hypertension) Current Visit: Yes Status: Chronic Qualifiers: Hypertension type: H Plan to address problem: BP well controlled. (4) Multiple myeloma Current Visit: No Status: Chronic Qualifiers: Multiple myeloma remission status: M Plan to address problem: In remission.
[2017-08-15] MEDS ORDERED: ANCEF/STERILE WATER 2 GM/20 ML 2 GM/20 ML SYRINGE IV NR (14:00)
--- NOTE | 2017-08-15 14:26 | XRay Report ---
AP chest x-ray. History: Cough and fever. Findings: The heart is enlarged and is unchanged compared to study in March of this year. The lungs are clear. No pleural fluid is seen. Impression: Cardiomegaly with no acute findings or interval changes.
[2017-08-15] MEDS ORDERED: HEPARIN/NS 5000 UNIT/500ML(CATH LAB) 500 ML IR ONE (14:45)
[2017-08-15] MEDS ORDERED: ANCEF/STERILE WATER 2 GM/20 ML 2 GM/20 ML SYRINGE IV ONE (14:45)
[2017-08-15] MEDS ORDERED: NACL 0.9% 250ML 250 ML ONE (14:46)
[2017-08-15] MEDS: VERSED ONE ×2 (15:02→15:30)
[2017-08-15] MEDS: SUBLIMAZE ONE ×2 (15:02→15:30)
[2017-08-15] MEDS: XYLOCAINE 2% INFILTRATI ONE ×2 (15:03→15:05)
[2017-08-15] MEDS: HEPARIN 10,000 UNITS/10 ML ONE ×3 (15:27→15:32)
--- NOTE | 2017-08-15 15:32 | Consultation ---
History of Present Illness - Reason for Consult Consult date: 08/15/17 Temporary and rat exterminator HD access - History of Present Illness This pt is a 76 yo AAF who has been admitted with progression of renal failure and need to initiate HD per nephrology. A vascular surgery consult is requested to place a perma-cath. Family states the pt was told she will need rat exterminator HD access as well. She is right hand dominant. Past History Past Medical History: hypertension, renal failure, other (Multiple myeloma) Past Surgical History: hysterectomy Social history: smoking Family history: no significant family history Medications and Allergies Allergies Allergy/AdvReac Type Severity Reaction Status Date / Time No Known Allergies Allergy Unverified 09/15/14 20:53 Home Medications Medication Instructions Recorded Confirmed Last Taken Type Simvastatin 20 mg PO HS 09/15/14 08/15/17 08/14/17 21:00 History Allopurinol 100 mg PO QDAY 08/15/16 08/15/17 08/15/17 10:00 History Hydrochlorothiazide 25 mg PO DAILY 08/15/16 08/15/17 08/15/17 10:00 History Aspirin [Aspirin BABY CHEW TAB] 81 mg PO QDAY 03/29/17 08/15/17 08/14/17 10:00 History Doxazosin Mesylate [Cardura] 2 mg PO QHS #30 tablet 04/01/17 08/15/17 08/14/17 21:00 Rx Metoprolol [Lopressor TAB] 25 mg PO BID #60 tablet 04/01/17 08/15/17 08/14/17 21 :00 Rx Pregabalin [Lyrica] 1 tab PO BID #60 capsule 04/01/17 08/15/17 08/14/17 Rx Amlodipine Besylate 10 mg PO QDAY 04/10/17 08/15/17 08/15/17 10:00 History Calcitriol [Rocaltrol] 0.25 mcg PO DAILY 08/15/17 08/15/17 08/15/17 10:00 History oxyCODONE /ACETAMINOPHEN [Percocet 5 - 325 mg PO Q12H PRN 08/15/17 08/15/17 18:00 History 5/325 mg] Active Meds: Active Medications Acetaminophen (Tylenol) 650 mg PO Q4H PRN PRN Reason: Pain MILD(1-3)/Fever >100.5/HURTADO Albuterol (Proventil) 2.5 mg IH Q4HRT PRN PRN Reason: Shortness Of Breath Bisacodyl (Dulcolax) 10 mg [place] QDAY PRN PRN Reason: Constipation unrelieved by MOM Sodium Chloride (Nacl 0.9%) 100 mls @ 999 mls/hr IV VALARIE PRN PRN Reason: Hypotension Magnesium Hydroxide (Milk Of Magnesia) 30 ml PO Q4H PRN PRN Reason: Constipation Ondansetron HCl (Zofran) 4 mg IV Q8H PRN PRN Reason: N/V unrelieved by Reglan Review of Systems All systems: negative Exam - Constitutional Vitals: Temp Pulse Resp BP Pulse Ox 97.6 F 49 L 16 142/56 97 08/15/17 13:14 08/15/17 13:14 08/15/17 13:14 08/15/17 13:14 08/15/17 14:09 General appearance: Present: no acute distress - EENT Eyes: Present: EOM intact ENT: hearing intact - Neck Neck: Present: supple - Respiratory Respiratory effort: normal - Extremities Extremities: no ischemia - Psychiatric Psychiatric: appropriate mood/affect, intact judgment & insight, cooperative - Neurologic Neurologic: no focal deficits Results - Labs CBC & Chem 7: 08/15/17 13:06 08/15/17 13:06 Labs: Abnormal lab results 08/15/17 08/15/17 Range/Units 13:06 13:06 RBC 2.55 L (3.65-5.03) M/mm3 Hgb 8.9 L (10.1-14.3) gm/dl Hct 25.9 L (30.3-42.9) % MCV 102 H (79-97) fl MCH 35 H (28-32) pg [place] % (Auto) 10.1 H (0.0-7.3) % Eos % (Auto) 5.6 H (0.0-4.3) % Carbon Dioxide 19 L (22-30) mmol/L BUN 60 H (7-17) mg/dL Creatinine 3.9 H (0.7-1.2) mg/dL Assessment and Plan Pt was eval'd by nephrology and felt to require initiation of HD. A vascular surgery consult has been requested to evaluate for Perma-cath placement. The R,B , and A were discussed in great detail. She stated understanding, and has agreed to proceed. This will be scheduled for the cardiac laborer plumbing utilizing fluoroscopy and U/s guidance. We will order a vein mapping of the upper ext to eval for a possible avf if needed. Discussed with her nurse to avoid needle sticks to the pt's LUE to preserve options for rat exterminator access in her non-dominant arm. - Patient Problems (1) Renal failure Current Visit: Yes Status: Acute Qualifiers: Renal failure chronicity: R Acute renal failure type: A Chronic kidney disease stage: C (2) HTN (hypertension) Current Visit: Yes Status: Acute Qualifiers: Hypertension type: H (3) Multiple myeloma Current Visit: No Status: Acute Qualifiers: Multiple myeloma remission status: M
--- NOTE | 2017-08-15 15:55 | Operative Report ---
Operative Report Operative Report: Procedure: 1. Right internal jugular tunneled dialysis catheter placement 2. Ultrasound guided puncture of the right internal jugular vein. Date: 08/16/2017 Physician: Bebe Pelaez MD Indication: 76 year old female with end stage renal disease, in need of dialysis. Technique: The patient was placed in the supine position and prepped and draped in the usual sterile fashion. A timeout was performed. Local anesthetic was administered. Under direct ultrasound guidance, the right internal jugular vein was accessed with a 21-gauge needle. This was exchanged over an .018l wire for a 4 [place] exchange dilator. Due to the diminutive internal jugular vein, there was difficulty in directing the wire centrally. The .018 wire was removed over a rim catheter. A combination of a rim catheter and Oliver wire was used to pass the Oliver wire into the IVC. Attention was then turned to the right chest wall. An appropriate catheter exit site was chosen, and local anesthetic was again administered. A skin corine was made, and the catheter was tunneled under the skin from the exit site to the venotomy. After serial tissue dilation, the dialysis catheter was advanced through a peel- away sheath, until the tip was in the right atrium. Vacuum aspiration and flushing was performed. Each lumen was instilled with heparin. The catheter was secured to the skin with 2-0 Ethilon suture. The venotomy site was closed with Dermabond. Sterile dressings were placed, and the patient was transported from the procedure area in stable condition. Findings: 1. Ultrasound demonstrates a patent and compressible right internal jugular vein. 2. There is successful placement of a 23 cm tunneled dialysis catheter via the right internal jugular vein. 3. Each lumen flushes and aspirates briskly. 4. Positioning of the catheter tip within the right atrium is confirmed by fluoroscopy. The catheter is ready for use.
[2017-08-15] MEDS ORDERED: NACL 0.9 (PRIMING MACHINE ONLY DIALYSIS) MC ONE (16:06)
[2017-08-15] MEDS: HEPARIN IV PRN (18:24)
[2017-08-16 03:19] LABS: Hematocrit 24.6 % (30.3-42.9); Hemoglobin 8.7 gm/dl (10.1-14.3); Mean Corpuscular HGB Conc 36 % (30-34); Mean Corpuscular Hemoglobin 35 pg (28-32); Mean Corpuscular Volume 99 fl (79-97); Platelet Count 140 K/mm3 (140-440); Red Blood Count 2.48 M/mm3 (3.65-5.03); Red Cell Distribution Width 13.8 % (13.2-15.2)
--- NOTE | 2017-08-16 07:28 | Progress Note ---
Assessment and Plan - Patient Problems (1) ESRD (end stage renal disease) Current Visit: Yes Status: Chronic Plan to address problem: CKD stage 5 has progressed to ESRD. Started on hemodialysis yesterday. Slow start protocol. HD today. Vein mapping today. (2) Anemia in CKD (chronic kidney disease) Current Visit: No Status: Acute Qualifiers: Chronic kidney disease stage: C Plan to address problem: Epogen. (3) HTN (hypertension) Current Visit: Yes Status: Chronic Qualifiers: Hypertension type: H Plan to address problem: BP well controlled. (4) Multiple myeloma Current Visit: No Status: Chronic Qualifiers: Multiple myeloma remission status: M Plan to address problem: In remission. Subjective Date of service: 08/16/17 Interval history: Patient is doing ok. Objective - Vital Signs Vital signs: Vital Signs - 12hr 08/15/17 08/15/17 08/15/17 19:57 20:00 22:00 Temperature 97.7 F Pulse Rate 59 L 59 L Respiratory 18 Rate Respiratory 18 Rate [Bilateral Leg] Blood Pressure 142/60 [Right] O2 Sat by Pulse 99 98 Oximetry 08/16/17 08/16/17 02:00 02:09 Temperature 98.2 F Pulse Rate 62 Respiratory 20 20 Rate Respiratory Rate [Bilateral Leg] Blood Pressure 136/51 [Right] O2 Sat by Pulse 99 Oximetry - General Appearance General appearance: well-developed, well-nourished, appears stated age, other ( no distress, right IJ tunnel catheter) EENT: ATNC, PERRL, hearing intact, vision intact Neck: supple Respiratory: Present: Clear to Ascultation Cardiology: regular, S1S2, no murmurs Gastrointestinal: normoactive bowel sounds, no tenderness, no distended Integumentary: no rash Neurologic: no focal deficit, no asterixis, alert and oriented x3, CN 3-12 intact Musculoskeletal: other (no edema) Psychiatric: mood/affect appropriate, cooperative - Lab 08/16/17 02:24 08/15/17 13:06 Most recent lab results Calcium 8.7 mg/dL (8.4-10.2) 08/15/17 13:06
[2017-08-16] MEDS ORDERED: NACL 0.9% 100 ML IV PRN (08:00)
--- NOTE | 2017-08-16 08:20 | Progress Note ---
Assessment and Plan Assessment and plan: --ESRD : Initiate hemodialysis, nephrology following Hemodialysis per scheduled and supportive care --Hypertension; moderate control, continue current antihypertensives and when necessary medications --Dyslipidemia; lipid-lowering medication --Anemia sec to ESRD; closely monitor H&H, Procrit during dialysis, transfuse as needed --Neuropathy; continue Neurontin --H/O Multiple Myeloma; stable --DVT prophylaxis; heparin --Full code status Closely monitor the patient and adjust management as needed History Interval history: Patient was examined in her room this morning Has no complaints, nephrology evaluation the patient initiating hemodialysis Hospitalist Physical - Constitutional Vitals: Temp Pulse Resp BP Pulse Ox 98.2 F 62 20 136/51 99 08/16/17 02:00 08/16/17 02:00 08/16/17 02:09 08/16/17 02:00 08/16/17 02:09 General appearance: Present: no acute distress, well-nourished, obese - EENT Eyes: Present: PERRL, EOM intact - Neck Neck: Present: supple, normal ROM - Respiratory Respiratory effort: normal Respiratory: bilateral: diminished, negative: rales, rhonchi, wheezing - Cardiovascular Rhythm: regular Heart Sounds: Present: S1 & S2 - Extremities Extremities: no ischemia, No edema - Abdominal General gastrointestinal: soft, non-tender, non-distended, normal bowel sounds - Integumentary Integumentary: Present: clear, warm - Psychiatric Psychiatric: appropriate mood/affect, cooperative - Neurologic Neurologic: CNII-XII intact, moves all extremities Results - Labs CBC & Chem 7: 08/16/17 02:24 08/15/17 13:06 Labs: Laboratory Last Values WBC 5.0 K/mm3 (4.5-11.0) 08/16/17 02:24 RBC 2.48 M/mm3 (3.65-5.03) L 08/16/17 02:24 Hgb 8.7 gm/dl (10.1-14.3) L 08/16/17 02:24 Hct 24.6 % (30.3-42.9) L 08/16/17 02:24 MCV 99 fl (79-97) H 08/16/17 02:24 MCH 35 pg (28-32) H 08/16/17 02:24 MCHC 36 % (30-34) H 08/16/17 02:24 RDW 13.8 % (13.2-15.2) 08/16/17 02:24 Plt Count 140 K/mm3 (140-440) 08/16/17 02:24 Lymph % (Auto) 25.4 % (13.4-35.0) 08/15/17 13:06 [place] % (Auto) 10.1 % (0.0-7.3) H 08/15/17 13:06 Eos % (Auto) 5.6 % (0.0-4.3) H 08/15/17 13:06 Baso % (Auto) 0.6 % (0.0-1.8) 08/15/17 13:06 Lymph # 1.4 K/mm3 (1.2-5.4) 08/15/17 13:06 [place] # 0.6 K/mm3 (0.0-0.8) 08/15/17 13:06 Eos # 0.3 K/mm3 (0.0-0.4) 08/15/17 13:06 Baso # 0.0 K/mm3 (0.0-0.1) 08/15/17 13:06 Seg Neutrophils % 58.3 % (40.0-70.0) 08/15/17 13:06 Seg Neutrophils # 3.3 K/mm3 (1.8-7.7) 08/15/17 13:06 PT 13.2 Sec. (12.2-14.9) 08/15/17 13:06 INR 1.01 (0.87-1.13) 08/15/17 13:06 Sodium 141 mmol/L (137-145) 08/15/17 13:06 Potassium 4.7 mmol/L (3.6-5.0) 08/15/17 13:06 Chloride 105.1 mmol/L (98-107) 08/15/17 13:06 Carbon Dioxide 19 mmol/L (22-30) L 08/15/17 13:06 Anion Gap 22 mmol/L 08/15/17 13:06 BUN 60 mg/dL (7-17) H 08/15/17 13:06 Creatinine 3.9 mg/dL (0.7-1.2) H 08/15/17 13:06 Estimated GFR 14 ml/min 08/15/17 13:06 BUN/Creatinine Ratio 15.38 % 08/15/17 13:06 Glucose 89 mg/dL (65-100) 08/15/17 13:06 Calcium 8.7 mg/dL (8.4-10.2) 08/15/17 13:06 Total Bilirubin 0.20 mg/dL (0.1-1.2) 08/15/17 13:06 AST 17 units/L (5-40) 08/15/17 13:06 ALT 9 units/L (7-56) 08/15/17 13:06 Alkaline Phosphatase 59 units/L (35-129) 08/15/17 13:06 Total Protein 6.4 g/dL (6.3-8.2) 08/15/17 13:06 Albumin 4.1 g/dL (3.9-5) 08/15/17 13:06 Albumin/Globulin Ratio 1.8 % 08/15/17 13:06 Hepatitis A IgM Ab Non-reactive (NonReactive) 08/15/17 16:24 Hep Bs Antigen Non-reactive (Negative) 08/15/17 16:24 Hep B Core IgM Ab Non-reactive (NonReactive) 08/15/17 16:24 Hepatitis C Antibody Reactive (NonReactive) A 08/15/17 16:24
[2017-08-16] MEDS ORDERED: NON-FORMULARY (Amlodipine Besylate 10 MG) PO SCH (10:00)
[2017-08-16] MEDS: ROCALTROL PO SCH (11:00)
[2017-08-16] MEDS: HCTZ PO SCH (11:00)
[2017-08-16] MEDS: LYRICA PO SCH (11:23)
[2017-08-16] MEDS: BABY ASPIRIN PO SCH (11:24)
[2017-08-16] MEDS: NORVASC PO SCH (11:27)
[2017-08-16] MEDS: ZYLOPRIM PO SCH (11:28)
--- NOTE | 2017-08-16 13:01 | Progress Note ---
Assessment and Plan Pt doing well following Perma-cath insertion. Catheter reportedly fxn'ing without difficulty. Vein mapping completed. Pre-limb report suggest chronic dvt of the right IJ veinl. No treatment necessary given that it is chronic. Her vein mapping suggests the L basilic vein is adequate for avf creation. The cephalic vein may be adequate, but is smaller. - Patient Problems (1) Renal failure Current Visit: Yes Status: Acute Qualifiers: Renal failure chronicity: R Acute renal failure type: A Chronic kidney disease stage: C (2) HTN (hypertension) Current Visit: Yes Status: Acute Qualifiers: Hypertension type: H (3) Multiple myeloma Current Visit: No Status: Acute Qualifiers: Multiple myeloma remission status: M (4) Chronic deep vein thrombosis (DVT) Current Visit: Yes Status: Chronic Qualifiers: DVT location: D Affected thrombotic vein of extremity: A Laterality: L Subjective Date of service: 08/16/17 Interval history: Pt awake and alert without complaint at present other then min tact tunnel pain. Objective - Constitutional Vitals: Vital Signs - 12hr 08/16/17 08/16/17 08/16/17 02:00 02:09 08:00 Temperature 98.2 F 99.7 F H Pulse Rate 62 65 Respiratory 20 20 18 Rate Blood Pressure 136/51 140/44 [Right] O2 Sat by Pulse 99 96 Oximetry General appearance: Present: no acute distress - EENT Eyes: EOM intact ENT: hearing intact - Neck Neck: supple (soft, no swelling, RIJ PC inplace without erythema or drainage appreciated.) - Respiratory Respiratory effort: normal Extremities: no ischemia, normal temperature - Neurologic Neurologic: no focal deficits - Psychiatric Psychiatric: appropriate mood/affect, intact judgment & insight, cooperative - Labs CBC & Chem 7: 08/16/17 02:24 08/15/17 13:06 Labs: Abnormal lab results 08/15/17 08/15/17 08/15/17 Range/Units 13:06 13:06 16:24 RBC 2.55 L (3.65-5.03) M/mm3 Hgb 8.9 L (10.1-14.3) gm/dl Hct 25.9 L (30.3-42.9) % MCV 102 H (79-97) fl MCH 35 H (28-32) pg MCHC (30-34) % [place] % (Auto) 10.1 H (0.0-7.3) % Eos % (Auto) 5.6 H (0.0-4.3) % Carbon Dioxide 19 L (22-30) mmol/L BUN 60 H (7-17) mg/dL Creatinine 3.9 H (0.7-1.2) mg/dL Hepatitis C Antibody Reactive A (NonReactive) 08/16/17 Range/Units 02:24 RBC 2.48 L (3.65-5.03) M/mm3 Hgb 8.7 L (10.1-14.3) gm/dl Hct 24.6 L (30.3-42.9) % MCV 99 H (79-97) fl MCH 35 H (28-32) pg MCHC 36 H (30-34) % [place] % (Auto) (0.0-7.3) % Eos % (Auto) (0.0-4.3) % Carbon Dioxide (22-30) mmol/L BUN (7-17) mg/dL Creatinine (0.7-1.2) mg/dL Hepatitis C Antibody (NonReactive)
[2017-08-16] MEDS: LOPRESSOR PO SCH ×3 (16:28→23:30)
[2017-08-16] MEDS: HEPARIN IV PRN (18:01)
[2017-08-16] MEDS ORDERED: NON-FORMULARY (Doxazosin Mesylate [Cardura] 2 MG) PO SCH (22:00)
[2017-08-16] MEDS: CARDURA PO SCH (22:43)
[2017-08-16] MEDS: ZOCOR PO SCH (22:46)
[2017-08-16] MEDS: PERCOCET 5/325 PO PRN (22:46)
[2017-08-17] MEDS: CARDURA PO SCH ×2 (02:39→21:23)
[2017-08-17 05:03] LABS: Basophils % (Auto) 0.5 % (0.0-1.8); Eosinophils % (Auto) 5.4 % (0.0-4.3); Hemoglobin 8.8 gm/dl (10.1-14.3); Mean Corpuscular HGB Conc 35 % (30-34); Mean Corpuscular Hemoglobin 35 pg (28-32); Mean Corpuscular Volume 100 fl (79-97); Platelet Count 135 K/mm3 (140-440); White Blood Count 4.7 K/mm3 (4.5-11.0)
[2017-08-17 05:21] LABS: BUN/Creatinine Ratio 7.08; Calcium 8.4 mg/dL (8.4-10.2); Chloride 102.1 mmol/L (98-107); Potassium 3.8 mmol/L (3.6-5.0)
--- NOTE | 2017-08-17 07:34 | Progress Note ---
Assessment and Plan - Patient Problems (1) ESRD (end stage renal disease) Current Visit: Yes Status: Chronic Plan to address problem: Patient with h/o CKD stage 5 has progressed to ESRD, now on hemodialysis. Patient was dialyzed 2 consecutive days. Tolerated HD well. Plan for HD tomorrow. Vein mapping done. (2) Anemia in CKD (chronic kidney disease) Current Visit: No Status: Acute Qualifiers: Chronic kidney disease stage: C Plan to address problem: Epogen. (3) HTN (hypertension) Current Visit: Yes Status: Chronic Qualifiers: Hypertension type: H Plan to address problem: Home meds resumed. (4) Multiple myeloma Current Visit: No Status: Chronic Qualifiers: Multiple myeloma remission status: M Plan to address problem: In remission. Subjective Date of service: 08/17/17 Interval history: Patient is doing ok. Objective - Vital Signs Vital signs: Vital Signs - 12hr 08/16/17 08/16/17 08/16/17 22:42 22:43 23:30 Pulse Rate 58 L 58 L 59 L Blood Pressure 132/45 132/45 180/58 O2 Sat by Pulse Oximetry 08/17/17 08/17/17 01:00 02:39 Pulse Rate 59 L Blood Pressure 180/58 O2 Sat by Pulse 98 Oximetry - General Appearance General appearance: well-developed, well-nourished, appears stated age, other ( no distress, right IJ tunnel catheter) EENT: ATNC, PERRL, hearing intact, vision intact Neck: supple Respiratory: Present: Clear to Ascultation Cardiology: regular, S1S2, no murmurs Gastrointestinal: normoactive bowel sounds, no tenderness, no distended Integumentary: no rash Neurologic: no focal deficit, no asterixis, alert and oriented x3, CN 3-12 intact Musculoskeletal: other (no edema) Psychiatric: mood/affect appropriate, cooperative - Lab 08/17/17 04:34 08/17/17 04:34 Most recent lab results Calcium 8.4 mg/dL (8.4-10.2) 08/17/17 04:34
--- NOTE | 2017-08-17 08:33 | Vascular Lab Report ---
Upper extremity vein mapping Reason for exam: Preoperative evaluation for hemodialysis access Comments: On the right, the cephalic vein is not usable from wrist to shoulder due to small size. The basilic vein is usable in the upper arm. The brachial and radial arteries are patent. The radial artery is small. On the left, the cephalic vein is marginal in the upper arm. The basilic vein is usable from elbow to shoulder. The brachial and radial arteries are patent. The radial artery is small. Impression: Left cephalic veins is marginal in the upper arm for use as AV access sites. Both basilic veins are suitable for use as AV access sites in the upper arm. Radial arteries are small
[2017-08-17] MEDS: LYRICA PO SCH (09:09)
[2017-08-17] MEDS: BABY ASPIRIN PO SCH (09:09)
[2017-08-17] MEDS: HCTZ PO SCH (09:09)
[2017-08-17] MEDS: ROCALTROL PO SCH (09:09)
[2017-08-17] MEDS: ZYLOPRIM PO SCH (09:09)
[2017-08-17] MEDS: NORVASC PO SCH (09:11)
[2017-08-17] MEDS: LOPRESSOR PO SCH ×2 (09:12→21:22)
--- NOTE | 2017-08-17 11:18 | Progress Note ---
Assessment and Plan Assessment and plan: --ESRD : Hemodialysis initiated ,nephrology following Hemodialysis per scheduled and supportive care --Hypertension; moderate control, continue current antihypertensives and when necessary medications --Dyslipidemia; lipid-lowering medication --Anemia sec to ESRD; closely monitor H&H, Procrit during dialysis, transfuse as needed --Neuropathy; continue Neurontin --H/O Multiple Myeloma; stable --DVT prophylaxis; heparin --Full code status Case management for discharge planning Plan of care discussed with the patient and her daughter at the bedside History Interval history: Patient seen and examined in her room this morning Comfortable no new complaints Daughter at the bedside Vital signs stable Hospitalist Physical - Constitutional Vitals: Temp Pulse Resp BP Pulse Ox 99.2 F 58 L 18 157/72 94 08/17/17 07:00 08/17/17 09:12 08/17/17 07:00 08/17/17 09:12 08/17/17 07:00 General appearance: Present: no acute distress, well-nourished, obese - EENT Eyes: Present: PERRL, EOM intact - Neck Neck: Present: supple, normal ROM - Respiratory Respiratory effort: normal Respiratory: bilateral: diminished, negative: rales, rhonchi, wheezing - Cardiovascular Rhythm: regular Heart Sounds: Present: S1 & S2 - Extremities Extremities: no ischemia, No edema - Abdominal General gastrointestinal: soft, non-tender, non-distended, normal bowel sounds - Integumentary Integumentary: Present: clear, warm - Psychiatric Psychiatric: appropriate mood/affect, cooperative - Neurologic Neurologic: CNII-XII intact, moves all extremities Results - Labs CBC & Chem 7: 08/17/17 04:34 08/17/17 04:34 Labs: Laboratory Last Values WBC 4.7 K/mm3 (4.5-11.0) 08/17/17 04:34 RBC 2.50 M/mm3 (3.65-5.03) L 08/17/17 04:34 Hgb 8.8 gm/dl (10.1-14.3) L 08/17/17 04:34 Hct 25.0 % (30.3-42.9) L 08/17/17 04:34 MCV 100 fl (79-97) H 08/17/17 04:34 MCH 35 pg (28-32) H 08/17/17 04:34 MCHC 35 % (30-34) H 08/17/17 04:34 RDW 14.0 % (13.2-15.2) 08/17/17 04:34 Plt Count 135 K/mm3 (140-440) L 08/17/17 04:34 Lymph % (Auto) 35.2 % (13.4-35.0) H 08/17/17 04:34 [place] % (Auto) 12.0 % (0.0-7.3) H 08/17/17 04:34 Eos % (Auto) 5.4 % (0.0-4.3) H 08/17/17 04:34 Baso % (Auto) 0.5 % (0.0-1.8) 08/17/17 04:34 Lymph # 1.7 K/mm3 (1.2-5.4) 08/17/17 04:34 [place] # 0.6 K/mm3 (0.0-0.8) 08/17/17 04:34 Eos # 0.3 K/mm3 (0.0-0.4) 08/17/17 04:34 Baso # 0.0 K/mm3 (0.0-0.1) 08/17/17 04:34 Seg Neutrophils % 46.9 % (40.0-70.0) 08/17/17 04:34 Seg Neutrophils # 2.2 K/mm3 (1.8-7.7) 08/17/17 04:34 PT 13.2 Sec. (12.2-14.9) 08/15/17 13:06 INR 1.01 (0.87-1.13) 08/15/17 13:06 Sodium 144 mmol/L (137-145) 08/17/17 04:34 Potassium 3.8 mmol/L (3.6-5.0) 08/17/17 04:34 Chloride 102.1 mmol/L (98-107) 08/17/17 04:34 Carbon Dioxide 28 mmol/L (22-30) D 08/17/17 04:34 Anion Gap 18 mmol/L 08/17/17 04:34 BUN 17 mg/dL (7-17) 08/17/17 04:34 Creatinine 2.4 mg/dL (0.7-1.2) H 08/17/17 04:34 Estimated GFR 24 ml/min 08/17/17 04:34 BUN/Creatinine Ratio 7.08 % 08/17/17 04:34 Glucose 91 mg/dL (65-100) 08/17/17 04:34 Calcium 8.4 mg/dL (8.4-10.2) 08/17/17 04:34 Total Bilirubin 0.20 mg/dL (0.1-1.2) 08/15/17 13:06 AST 17 units/L (5-40) 08/15/17 13:06 ALT 9 units/L (7-56) 08/15/17 13:06 Alkaline Phosphatase 59 units/L (35-129) 08/15/17 13:06 Total Protein 6.4 g/dL (6.3-8.2) 08/15/17 13:06 Albumin 4.1 g/dL (3.9-5) 08/15/17 13:06 Albumin/Globulin Ratio 1.8 % 08/15/17 13:06 Hepatitis A IgM Ab Non-reactive (NonReactive) 08/15/17 16:24 Hep Bs Antigen Non-reactive (Negative) 08/15/17 16:24 Hep B Core IgM Ab Non-reactive (NonReactive) 08/15/17 16:24 Hepatitis C Antibody Reactive (NonReactive) A 08/15/17 16:24
--- NOTE | 2017-08-17 14:51 | Progress Note ---
Assessment and Plan Spoke with nephrology. Pt will need prison HD access. R,B,and A explained to pt, who understands and agrees. will schedule for tomorrow in the OR. - Patient Problems (1) Renal failure Current Visit: Yes Status: Acute Qualifiers: Renal failure chronicity: R Acute renal failure type: A Chronic kidney disease stage: C (2) HTN (hypertension) Current Visit: Yes Status: Chronic Qualifiers: Hypertension type: H (3) Multiple myeloma Current Visit: No Status: Chronic Qualifiers: Multiple myeloma remission status: M (4) Chronic deep vein thrombosis (DVT) Current Visit: Yes Status: Chronic Qualifiers: DVT location: D Affected thrombotic vein of extremity: A Laterality: L Subjective Date of service: 08/17/17 Interval history: Pt awake and alert without complaint. No issues since PC insertion. Objective - Constitutional Vitals: Vital Signs - 12hr 08/17/17 08/17/17 08/17/17 07:00 09:11 09:12 Temperature 99.2 F Pulse Rate 58 L 58 L 58 L Respiratory 18 Rate Blood Pressure 157/72 157/72 Blood Pressure 157/72 [Right] O2 Sat by Pulse 94 Oximetry 08/17/17 13:00 Temperature Pulse Rate Respiratory 18 Rate Blood Pressure Blood Pressure [Right] O2 Sat by Pulse 94 Oximetry General appearance: Present: no acute distress - EENT Eyes: EOM intact ENT: hearing intact - Neck Neck: supple (right IJ PC inplace without erythema or drainage.) - Respiratory Respiratory effort: normal Extremities: normal temperature - Neurologic Neurologic: no focal deficits - Psychiatric Psychiatric: appropriate mood/affect, intact judgment & insight, cooperative - Labs CBC & Chem 7: 08/17/17 04:34 08/17/17 04:34 Labs: Abnormal lab results 08/17/17 08/17/17 Range/Units 04:34 04:34 RBC 2.50 L (3.65-5.03) M/mm3 Hgb 8.8 L (10.1-14.3) gm/dl Hct 25.0 L (30.3-42.9) % MCV 100 H (79-97) fl MCH 35 H (28-32) pg MCHC 35 H (30-34) % Plt Count 135 L (140-440) K/mm3 Lymph % (Auto) 35.2 H (13.4-35.0) % [place] % (Auto) 12.0 H (0.0-7.3) % Eos % (Auto) 5.4 H (0.0-4.3) % Creatinine 2.4 H (0.7-1.2) mg/dL
--- NOTE | 2017-08-17 15:29 | Anesthesia Consultation ---
Anesthesia Consult and Med Hx Date of service: 08/17/17 - Airway Anesthetic Teeth Evaluation: Dentures (upper), Edentulous ROM Head & Neck: Adequate Mental/Hyoid Distance: Adequate Mallampati Class: Class II Intubation Access Assessment: Probably Good - Pre-Operative Health Status ASA Pre-Surgery Classification: ASA3 Proposed Anesthetic Plan: General - Pulmonary Hx Smoking: Yes Hx Asthma: No COPD: No Hx Pneumonia: No Hx Sleep Apnea: No - Cardiovascular System Hx Hypertension: Yes (11/20/1996) Hx Coronary Artery Disease: No Hx Heart Attack/AMI: No Hx Angina: No Hx Percutaneous Transluminal Coronary Angioplasty (PTCA): No Hx Pacemaker: No Hx Internal Defibrillator: No Hx Valvular Heart Disease: No Hx Heart Murmur: No Hx Peripheral Vascular Disease: Yes (Stents placed in June 2017) - Central Nervous System Hx Psychiatric Problems: No - Gastrointestinal Hx Ulcer: No - Endocrine Hx Renal Disease: Yes Hx End Stage Renal Disease: Yes (on dialysis) Hx Cirrhosis: No Hx Liver Disease: No Hx Hypothyroidism: No Hx Hyperthyroidism: Yes - Hematic Hx Anemia: Yes (Multiple myeloma in remission) - Other Systems Hx Cancer: No
[2017-08-17] MEDS: ZOCOR PO SCH (21:22)
[2017-08-17] MEDS: PERCOCET 5/325 PO PRN (21:22)
[2017-08-18 05:37] LABS: BUN/Creatinine Ratio 6.06; Calcium 8.4 mg/dL (8.4-10.2); Chloride 98.5 mmol/L (98-107)
[2017-08-18] MEDS ORDERED: ANCEF/STERILE WATER 2 GM/20 ML 2 GM/20 ML SYRINGE IV NR ×2 (06:00→09:00)
[2017-08-18] MEDS ORDERED: NACL 0.9% 1000 ML 1,000 ML IV SCH (07:00)
[2017-08-18] MEDS ORDERED: VERSED IV NR (07:00)
[2017-08-18] MEDS ORDERED: PEPCID IV NR (07:00)
--- NOTE | 2017-08-18 09:10 | Progress Note ---
Assessment and Plan - Patient Problems (1) ESRD (end stage renal disease) Current Visit: Yes Status: Chronic Plan to address problem: Patient with h/o CKD stage 5 has progressed to ESRD, now on hemodialysis. HD today. Scheduled to get AVF placement today. Possible d/c home today. (2) Anemia in CKD (chronic kidney disease) Current Visit: No Status: Acute Qualifiers: Chronic kidney disease stage: C Plan to address problem: Epogen. (3) HTN (hypertension) Current Visit: Yes Status: Chronic Qualifiers: Hypertension type: H Plan to address problem: Monitor BP. (4) Multiple myeloma Current Visit: No Status: Chronic Qualifiers: Multiple myeloma remission status: M Plan to address problem: In remission. Subjective Date of service: 08/18/17 Interval history: Patient is doing ok. Objective - Vital Signs Vital signs: Vital Signs - 12hr 08/17/17 08/17/17 08/18/17 21:22 21:23 00:54 Temperature Pulse Rate 66 66 Respiratory 20 Rate Blood Pressure 126/68 126/68 Blood Pressure [Right] O2 Sat by Pulse 98 Oximetry 08/18/17 08/18/17 06:00 09:04 Temperature 98.6 F 99.2 F Pulse Rate 57 L 53 L Respiratory 18 20 Rate Blood Pressure Blood Pressure 151/52 149/45 [Right] O2 Sat by Pulse 98 18 L Oximetry - General Appearance General appearance: well-developed, well-nourished, appears stated age, other ( no distress, right IJ tunnel catheter) EENT: ATNC, PERRL, hearing intact, vision intact Neck: supple Respiratory: Present: Clear to Ascultation Cardiology: regular, S1S2, no murmurs Gastrointestinal: normoactive bowel sounds, no tenderness, no distended Integumentary: no rash Neurologic: no focal deficit, no asterixis, alert and oriented x3, CN 3-12 intact Musculoskeletal: other (no edema) Psychiatric: mood/affect appropriate, cooperative - Lab 08/17/17 04:34 08/18/17 04:02 Most recent lab results Calcium 8.4 mg/dL (8.4-10.2) 08/18/17 04:02
[2017-08-18] MEDS ORDERED: NACL 0.9% 100 ML IV PRN (09:30)
[2017-08-18] MEDS: ZYLOPRIM PO SCH (10:00)
[2017-08-18] MEDS: BABY ASPIRIN PO SCH (10:00)
[2017-08-18] MEDS ORDERED: PROCRIT SUB-Q NR (10:00)
[2017-08-18] MEDS: ROCALTROL PO SCH (10:00)
[2017-08-18] MEDS: HCTZ PO SCH ×2 (10:00→18:16)
[2017-08-18] MEDS: NORVASC PO SCH ×2 (10:00→18:16)
[2017-08-18] MEDS: LYRICA PO SCH (10:00)
[2017-08-18] MEDS ORDERED: DILAUDID IV PRN (10:30)
[2017-08-18] MEDS ORDERED: ZOFRAN ONE (10:38)
[2017-08-18] MEDS ORDERED: XYLOCAINE MPF 2% ONE (10:38)
[2017-08-18] MEDS ORDERED: DIPRIVAN 10 MG/ML IV ONE (10:38)
[2017-08-18] MEDS ORDERED: DECADRON ONE (10:38)
[2017-08-18] MEDS ORDERED: DILAUDID ONE (10:39)
[2017-08-18] MEDS ORDERED: PROTAMINE SULFATE ONE (10:51)
[2017-08-18] MEDS ORDERED: HEPARIN 10,000 UNITS/10 ML ONE (10:51)
[2017-08-18] MEDS ORDERED: NACL 0.9% 500 ML 500 ML ONE (10:51)
[2017-08-18] MEDS ORDERED: MARCAINE 0.5% INFILTRATI ONE ×3 (10:51→12:32)
[2017-08-18] MEDS ORDERED: NACL 0.9% 1000 ML 1,000 ML ONE (11:30)
[2017-08-18] MEDS ORDERED: PEPCID IV ONE (11:31)
[2017-08-18] MEDS: LOPRESSOR PO SCH ×2 (11:36→21:40)
[2017-08-18] MEDS ORDERED: NACL 0.9% IR ONE (12:32)
[2017-08-18] MEDS ORDERED: HEPARIN 10,000 UNITS/10 ML 2,000 UNIT in NACL 0.9% 500 ML 500 ML IR ONE (12:33)
--- NOTE | 2017-08-18 13:52 | Operative Report ---
Operative Report Operative Report: Date of procedure: 08/18/2017 Pre-operative diagnosis: End-Stage Renal Disease Post-operative diagnosis: End-Stage Renal Disease Procedure(s): Creation of Left Brachial Artery to Cephalic Vein Arteriovenous Fistula Surgeon: Ishaan Bacon MD Cdl Driver: None Anesthesia: Gen. endotracheal anesthesia EBL: Minimal Counts: Correct Complications: None Condition: Stable Findings: Successful creation of left brachiocephalic arteriovenous cystoscopy with palpable thrill and palpable radial pulse at the completion of the case. Specimen: None Indications: The patient is a 76-year-old female with a history of end-stage renal disease and was recently started on hemodialysis through a permacath. She is in need of long-term access and had adequate vein for creation of a fistula. She was given the risks, benefits, and alternative procedures and consented to procedure. Description of Procedure: The patient was brought to the operating room and laid in supine position after general endotracheal anesthesia was administered the patient was prepped and draped in normal sterile fashion. After anesthetizing the skin a transverse incision was created just below the antecubital crease. Dissection was carried down to the the cephalic vein using sharp dissection. The vein was dissected out both proximally and distally and suture ligated and divided distally. I then ran a 3 Jes proximally in the vein, to ensure patency of the vein. Then flushed the vein with heparinized saline and flow was controlled with a bulldog clamp. I then dissected out the brachial artery through this incision circumferentially both proximal and distal and controlled the artery with vessel loops. I then placed the vessel loops on tension controlling the flow through the artery and created an arteriotomy using an 11 blade and Jordan scissors. I created an end to side anastomosis between the cephalic vein and brachial artery using a 6-0 Prolene in running fashion. Prior to completing the anastomosis I flushed the artery both proximally and distally and then advanced a 3 Jes proximally to break the spasm in the artery. I then completed the anastomosis and removed all vessel loops allowing flow into the fistula which had an excellent thrill. I achieved hemostasis with a combination of direct pressure and electrocautery. Once hemostasis was achieved I anesthetized the wound with Marcaine. I then closed the wound in 2 layers and 3-0 Vicryl in a running fashion to close the deep dermal layer and 4- 0 Monocryl in a running fashion in the subcuticular layer. I dressed the wound with Surgicel. The patient tolerated the procedure well, all sponge needle and instrument counts were correct. The patient was taken to recovery in stable condition.
--- NOTE | 2017-08-18 14:26 | Post Anesthesia Evaluation ---
- Post Anesthesia Evaluation Patient Participated: Yes Airway Patent: Yes Stable Respiratory Function: Yes Temp > 96.8F: Yes Pain Manageable: Yes Adequeate Hydration: Yes Anesthesia Complications: No
[2017-08-18] MEDS ORDERED: NACL 0.9 (PRIMING MACHINE ONLY DIALYSIS) MC ONE (17:10)
[2017-08-18] MEDS: HEPARIN IV PRN (18:02)
--- NOTE | 2017-08-18 21:22 | Progress Note ---
Assessment and Plan Assessment and plan: --ESRD : Hemodialysis initiated ,nephrology following Hemodialysis per scheduled and supportive care AV fistula placement today --Hypertension; moderate control, continue current antihypertensives and when necessary medications --Dyslipidemia; lipid-lowering medication --Anemia sec to ESRD; closely monitor H&H, Procrit during dialysis, transfuse as needed --Neuropathy; continue Neurontin --H/O Multiple Myeloma; stable --DVT prophylaxis; heparin --Full code status History Interval history: Patient feels better complaints AV fistula placement today Hospitalist Physical - Constitutional Vitals: Temp Pulse Resp BP Pulse Ox 97.9 F 62 18 167/89 97 08/18/17 18:00 08/18/17 18:16 08/18/17 17:20 08/18/17 18:16 08/18/17 14:15 General appearance: Present: no acute distress, well-nourished - EENT Eyes: Present: PERRL, EOM intact - Neck Neck: Present: supple, normal ROM - Respiratory Respiratory effort: normal Respiratory: bilateral: diminished, negative: rales, rhonchi, wheezing - Cardiovascular Rhythm: regular Heart Sounds: Present: S1 & S2 - Extremities Extremities: no ischemia, No edema - Abdominal General gastrointestinal: soft, non-tender, non-distended, normal bowel sounds - Integumentary Integumentary: Present: clear, warm - Psychiatric Psychiatric: appropriate mood/affect, cooperative - Neurologic Neurologic: CNII-XII intact, moves all extremities Results - Labs CBC & Chem 7: 08/17/17 04:34 08/18/17 04:02 Labs: Laboratory Last Values WBC 4.7 K/mm3 (4.5-11.0) 08/17/17 04:34 RBC 2.50 M/mm3 (3.65-5.03) L 08/17/17 04:34 Hgb 8.8 gm/dl (10.1-14.3) L 08/17/17 04:34 Hct 25.0 % (30.3-42.9) L 08/17/17 04:34 MCV 100 fl (79-97) H 08/17/17 04:34 MCH 35 pg (28-32) H 08/17/17 04:34 MCHC 35 % (30-34) H 08/17/17 04:34 RDW 14.0 % (13.2-15.2) 08/17/17 04:34 Plt Count 135 K/mm3 (140-440) L 08/17/17 04:34 Lymph % (Auto) 35.2 % (13.4-35.0) H 08/17/17 04:34 [place] % (Auto) 12.0 % (0.0-7.3) H 08/17/17 04:34 Eos % (Auto) 5.4 % (0.0-4.3) H 08/17/17 04:34 Baso % (Auto) 0.5 % (0.0-1.8) 08/17/17 04:34 Lymph # 1.7 K/mm3 (1.2-5.4) 08/17/17 04:34 [place] # 0.6 K/mm3 (0.0-0.8) 08/17/17 04:34 Eos # 0.3 K/mm3 (0.0-0.4) 08/17/17 04:34 Baso # 0.0 K/mm3 (0.0-0.1) 08/17/17 04:34 Seg Neutrophils % 46.9 % (40.0-70.0) 08/17/17 04:34 Seg Neutrophils # 2.2 K/mm3 (1.8-7.7) 08/17/17 04:34 PT 13.2 Sec. (12.2-14.9) 08/15/17 13:06 INR 1.01 (0.87-1.13) 08/15/17 13:06 Sodium 138 mmol/L (137-145) 08/18/17 04:02 Potassium 4.0 mmol/L (3.6-5.0) 08/18/17 04:02 Chloride 98.5 mmol/L (98-107) 08/18/17 04:02 Carbon Dioxide 25 mmol/L (22-30) 08/18/17 04:02 Anion Gap 19 mmol/L 08/18/17 04:02 BUN 20 mg/dL (7-17) H 08/18/17 04:02 Creatinine 3.3 mg/dL (0.7-1.2) H 08/18/17 04:02 Estimated GFR 17 ml/min 08/18/17 04:02 BUN/Creatinine Ratio 6.06 % 08/18/17 04:02 Glucose 82 mg/dL (65-100) 08/18/17 04:02 POC Glucose 108 (70-105) H 08/18/17 13:26 Calcium 8.4 mg/dL (8.4-10.2) 08/18/17 04:02 Total Bilirubin 0.20 mg/dL (0.1-1.2) 08/15/17 13:06 AST 17 units/L (5-40) 08/15/17 13:06 ALT 9 units/L (7-56) 08/15/17 13:06 Alkaline Phosphatase 59 units/L (35-129) 08/15/17 13:06 Total Protein 6.4 g/dL (6.3-8.2) 08/15/17 13:06 Albumin 4.1 g/dL (3.9-5) 08/15/17 13:06 Albumin/Globulin Ratio 1.8 % 08/15/17 13:06 Hepatitis A IgM Ab Non-reactive (NonReactive) 08/15/17 16:24 Hep Bs Antigen Non-reactive (Negative) 08/15/17 16:24 Hep B Core IgM Ab Non-reactive (NonReactive) 08/15/17 16:24 Hepatitis C Antibody Reactive (NonReactive) A 08/15/17 16:24
[2017-08-18] MEDS: ZOCOR PO SCH (21:38)
[2017-08-18] MEDS: PERCOCET 5/325 PO PRN (21:38)
[2017-08-18] MEDS: CARDURA PO SCH (21:39)
[2017-08-19] MEDS: LOPRESSOR PO SCH (10:58)
[2017-08-19] MEDS: NORVASC PO SCH (10:59)
[2017-08-19] MEDS: HCTZ PO SCH (10:59)
[2017-08-19] MEDS: BABY ASPIRIN PO SCH (10:59)
[2017-08-19] MEDS: ZYLOPRIM PO SCH (10:59)
[2017-08-19] MEDS: ROCALTROL PO SCH (10:59)
[2017-08-19 11:00] VITALS: BP 129/60
[2017-08-19] MEDS: LYRICA PO SCH (11:00)
--- NOTE | 2017-08-19 12:18 | Discharge Summary ---
Providers - Providers Date of Admission: 08/15/17 12:12 Date of discharge: 08/19/17 Attending physician: HARIS YOUNG 08/15/17 10:37 Consult to Physician [CONS] Routine Consulting Provider: AIDE ORTIZ Reason For Exam: ESRD Place consult to:: DR. Andres ORTIZ Notified:: yes Phone number called:: [phone] Was contact made?: Yes If yes, spoke with:: DR. GOOD Time called:: 10:41 08/15/17 12:02 Consult to Interventional Radiology [CONS] Routine Consulting Provider: ELIS COHEN Reason For Exam: Hemodialysis catheter placement. Place consult to:: liz macias Notified:: yes Phone number called:: blas Was contact made?: Yes If yes, spoke with:: liz Time called:: 12:36 Comment:: glenn Primary care physician: DIVING BOARD ASSEMBLER Hospitalization Reason for admission: ESRD to initiate hemodialysis Pertinent studies: Chest x-ray; cardiomegaly with no acute changes Procedures: Right internal jugular tunnel dialysis catheter placement Upper extremity vein mapping Permacath placement Hemodialysis Creation of AV fistula Hospital course: Very pleasant 76-year-old female patient with end-stage renal disease was admitted to the hospital to initiate hemodialysis Patient was evaluated by collar separator as well as vascular, had temporary dialysis catheter, received hemodialysis per schedule Patient received permacath, As well as creation of AV fistula Patient tolerated the procedures well Patient's symptoms significantly improved Today she is comfortable in bed no new complaints Vital signs are stable [id number] evaluation physical examination done by sc prior to Discharge is unremarkable as detailed below Cleared by nephrology for discharge and follow up with outpatient dialysis center for scheduled hemodialysis 3 times a week Patient is hemodynamically and clinically stable at the time of discharge Smoking cessation counseling done patient strongly advised to quit tobacco use, verbalized understanding Discharge diagnosis; End-stage renal disease on hemodialysis Hypertension Dyslipidemia Anemia secondary to end-stage renal disease Neuropathy History of multiple myeloma Ongoing tobacco use Disposition: DC-01 TO HOME OR SELFCARE Time spent for discharge: 32 min Core Measure Documentation - Palliative Care Palliative Care/ Comfort Measures: Not Applicable - Core Measures Any of the following diagnoses?: none Exam - Constitutional Vitals: Temp Pulse Resp BP Pulse Ox 99 F 64 18 129/60 98 08/19/17 09:08 08/19/17 10:59 08/19/17 09:08 08/19/17 10:59 08/19/17 09:08 General appearance: Present: no acute distress, well-nourished - EENT Eyes: Present: PERRL, EOM intact - Neck Neck: Present: supple, normal ROM - Respiratory Respiratory effort: normal Respiratory: bilateral: diminished, negative: rales, rhonchi, wheezing - Cardiovascular Rhythm: regular Heart Sounds: Present: S1 & S2 - Extremities Extremities: no ischemia, No edema, abnormal (Surgical scar clean Lt arm) - Abdominal General gastrointestinal: Present: soft, non-tender, non-distended, normal bowel sounds - Integumentary Integumentary: Present: clear, warm - Musculoskeletal Musculoskeletal: strength equal bilaterally - Psychiatric Psychiatric: appropriate mood/affect, cooperative - Neurologic Neurologic: CNII-XII intact, moves all extremities Plan Activity: no restrictions Diet: renal Special Instructions: smoking cessation Additional Instructions: f/u renal and HD per schedule Follow up with: PRIMARY MD FLETCHER [Primary Care Provider] - 7 Days AIDE ORTIZ MD [Staff Physician] - 7 Days Prescriptions: Doxazosin [Cardura] 2 mg PO QHS #30 tablet Nicotine [Habitrol] 14 mg TD DAILY #30 patch
== END 2017-08-19 13:10 | disposition home or self-care (01) | DRG 673 ==
LOC: CC2 10:35 → UNDOADMIN 10:35 → CC2 12:12
PROVIDERS: ADMIT Internal Medicine; ATTEND Internal Medicine
PROC: 0JH63XZ Insertion of Tunneled Vascular Access Device into Chest Subcutaneous Tissue and Fascia, Percutaneous Approach (ICD-10-PCS; 2017-08-16)
PROC: 02H633Z Insertion of Infusion Device into Right Atrium, Percutaneous Approach (ICD-10-PCS; 2017-08-16)
PROC: 5A1D60Z (ICD-10-PCS; 2017-08-16)
PROC: 03180ZD Bypass Left Brachial Artery to Upper Arm Vein, Open Approach (ICD-10-PCS; principal; 2017-08-18)
DX: I12.0 Hypertensive chronic kidney disease with stage 5 chronic kidney disease or end stage renal disease (principal); N18.6 End stage renal disease; C90.00 Multiple myeloma not having achieved remission; I82.509 Chronic embolism and thrombosis of unspecified deep veins of unspecified lower extremity; M10.9 Gout, unspecified; D63.1 Anemia in chronic kidney disease; G62.9 Polyneuropathy, unspecified; F17.200 Nicotine dependence, unspecified, uncomplicated; E78.5 Hyperlipidemia, unspecified; Z90.710 Acquired absence of both cervix and uterus; Z83.3 Family history of diabetes mellitus; Z82.49 Family history of ischemic heart disease and other diseases of the circulatory system; Z79.899 Other long term (current) drug therapy; Z95.820 Peripheral vascular angioplasty status with implants and grafts
CPT/HCPCS: 36415; 36558; 71010; 77001; 80048; 80053; 80074; 82962; 85025; 85027; 85610; C1750; C1751; C1757; C1769; J0690; J0885; J1100; J1170; J1644; J2250; J2405; J2704; J2720; J3010; J7030; J7040; J7050

== ENCOUNTER 2018-03-24 15:15 | Emergency (ER) | payer MEDICARE ==
[2018-03-24] MEDS ORDERED: DUONEB *Not for PRN Use IH ONE (17:09)
--- NOTE | 2018-03-24 17:12 | Emergency Department Report ---
Chief Complaint: Weakness Stated Complaint: FLU LIKE SYMPTOMS Time Seen by Provider: 03/24/18 17:05 - HPI History of Present Illness: 77-year-old afterward female presents to the emergency department, sent in by her dialysis center, with complaint of low-grade fever, cough, chest pain, wheezing. She gets dialysis on Monday, , Monday and her telemarketing agent is Dr. bautista. Allegedly they gave her some antibiotics prior to sending her in. The cough has been going on for about one week. - ROS Review of Systems: Positive for chest pain, cough, wheezing, fever Negative for abdominal pain, nausea, vomiting - Exam Vital Signs: Vital Signs 03/24/18 15:20 Temperature 98.9 F Pulse Rate 95 H Respiratory 16 Rate Blood Pressure 144/63 O2 Sat by Pulse 95 Oximetry Physical Exam: She is awake and alert in no acute distress. She has nonreproducible chest pain to palpation. She has some mild to moderate wheezing throughout the chest. MSE screening note: Focused history and physical exam performed. Due to findings the following was ordered: Given the patient's advanced age and history of end-stage renal disease on hemodialysis with current chest pain, this does not appear to be an appropriate patient for the fast track side. She will be sent to the main side of the emergency department and I have ordered a CBC, CMP, EKG and a 2 view x-ray. She will get DuoNeb treatment for her bronchospasm ED Disposition for MSE Condition: Stable Referrals: PRIMARY CARE, [Primary Care Provider] - 3-5 Days
[2018-03-24] MEDS ORDERED: ATROVENT IH ONE (17:18)
[2018-03-24] MEDS ORDERED: PROVENTIL IH ONE (17:18)
[2018-03-24] MEDS ORDERED: TESSALON PERLES PO ONE (17:19)
[2018-03-24] MEDS ORDERED: NORCO 5/325 PO ONE (17:19)
--- NOTE | 2018-03-24 17:24 | Emergency Department Report ---
- General Chief Complaint: Weakness Stated Complaint: FLU LIKE SYMPTOMS Time Seen by Provider: 03/24/18 17:05 Source: patient Mode of arrival: Wheelchair Limitations: No Limitations - History of Present Illness Initial Comments: 77-year-old female with a past medical history multiple myeloma (remission 2 years), end-stage disease on dialysis, hypertension, gout, and elevated cholesterol presents to the hospital with complaints of cough and chills for the past 2 days. Cough is productive of clear sputum. Positive associated wheezing and shortness of breath. Questionable low-grade fever. Patient went to dialysis today and received her entire dialysis amd was subsequently given antibiotics and transferred to the ER for evaluation. Patient complains of anterior chest pain radiating to the back with coughing episodes that is rated 6 /10 in intensity. Pain is intermittent and worse with palpation. Patient denies previous history of asthma, COPD, current inhaler or nebulizer treatment use. Strip Roller Dr Ortiz - Related Data Home Medications Medication Instructions Recorded Confirmed Last Taken RX: Simvastatin 20 mg PO HS 09/15/14 08/15/17 08/14/17 21:00 RX: Allopurinol 100 mg PO QDAY 08/15/16 08/15/17 08/15/17 10:00 RX: Hydrochlorothiazide 25 mg PO DAILY 08/15/16 08/15/17 08/15/17 10:00 RX: Aspirin [Aspirin BABY CHEW TAB] 81 mg PO QDAY 03/29/17 08/15/17 08/14/17 10: 00 Amlodipine Besylate 10 mg PO QDAY 04/10/17 08/15/17 08/15/17 10:00 RX: Calcitriol [Rocaltrol] 0.25 mcg PO DAILY 08/15/17 08/15/17 08/15/17 10:00 RX: oxyCODONE /ACETAMINOPHEN 5 - 325 mg PO Q12H PRN 08/15/17 08/15/17 08/14/17 18:00 [Percocet 5/325 mg] Previous Rx's Medication Instructions Recorded Last Taken Type RX: Doxazosin Mesylate [Cardura] 2 mg PO QHS #30 tablet 04/01/17 08/14/17 21:00 Rx RX: Metoprolol [Lopressor TAB] 25 mg PO BID #60 tablet 04/01/17 08/14/17 21:00 Rx RX: Pregabalin [Lyrica] 1 tab PO BID #60 capsule 04/01/17 08/14/17 Rx RX: Doxazosin [Cardura] 2 mg PO QHS #30 tablet 08/19/17 Unknown Rx RX: Nicotine [Habitrol] 14 mg TD DAILY #30 patch 08/19/17 Unknown Rx Benzonatate [Tessalon Perles] 100 mg PO Q8HR PRN #30 capsule 03/24/18 Unknown Rx HYDROcodone/APAP 5-325 [[place] 1 each PO Q6HR PRN #20 tablet 03/24/18 Unknown Rx 5/325] Inhaler, Assist Devices [Space 1 each MC PRN PRN #1 spacer 03/24/18 Unknown Rx Chamber Plus] RX: ALBUTEROL Inhaler [ProAir HFA 2 puff IH QID PRN #1 inhalation 03/24/18 Unknown Rx Inhaler] RX: Azithromycin [Zithromax Z-SUSU] 1 dose PO DAILY 5 Days tab 03/24/18 Unknown Rx RX: predniSONE [Deltasone] 40 mg PO QDAY 5 Days tab 03/24/18 Unknown Rx Allergies Allergy/AdvReac Type Severity Reaction Status Date / Time No Known Allergies Allergy Verified 03/24/18 15:19 ED Review of Systems ROS: Stated complaint: FLU LIKE SYMPTOMS Other details as noted in HPI Comment: All other systems reviewed and negative ED Past Medical Hx - Past Medical History Hx Hypertension: Yes (11/20/1996) Hx Heart Attack/AMI: No Hx Congestive Heart Failure: No Hx Diabetes: No Hx Deep Vein Thrombosis: No Hx Pulmonary Embolism: No Hx Liver Disease: No Hx Renal Disease: Yes Hx Arthritis: Yes (Knees) Hx Kidney Stones: No Hx Asthma: No Hx COPD: No Hx Tuberculosis: No Hx HIV: No Additional medical history: Gout, Cholesterol - Surgical History Hx Coronary Stent: No Hx Pacemaker: No Hx Internal Defibrillator: No Additional Surgical History: Hysterectomy - Social History Smoking Status: Current Every Day Smoker Substance Use Type: None - Medications Home Medications: Home Medications Medication Instructions Recorded Confirmed Last Taken Type RX: Simvastatin 20 mg PO HS 09/15/14 08/15/17 08/14/17 21:00 History RX: Allopurinol 100 mg PO QDAY 08/15/16 08/15/17 08/15/17 10:00 History RX: Hydrochlorothiazide 25 mg PO DAILY 08/15/16 08/15/17 08/15/17 10:00 History RX: Aspirin [Aspirin BABY CHEW TAB] 81 mg PO QDAY 03/29/17 08/15/17 08/14/17 10: 00 History RX: Doxazosin Mesylate [Cardura] 2 mg PO QHS #30 tablet 04/01/17 08/15/17 21:00 Rx RX: Metoprolol [Lopressor TAB] 25 mg PO BID #60 tablet 04/01/17 08/15/17 21:00 Rx RX: Pregabalin [Lyrica] 1 tab PO BID #60 capsule 04/01/17 08/15/17 08/14/17 Rx Amlodipine Besylate 10 mg PO QDAY 04/10/17 08/15/17 08/15/17 10:00 History RX: Calcitriol [Rocaltrol] 0.25 mcg PO DAILY 08/15/17 08/15/17 08/15/17 10:00 History RX: oxyCODONE /ACETAMINOPHEN 5 - 325 mg PO Q12H PRN 08/15/17 08/15/17 08/14/17 18:00 History [Percocet 5/325 mg] RX: Doxazosin [Cardura] 2 mg PO QHS #30 tablet 08/19/17 Unknown Rx RX: Nicotine [Habitrol] 14 mg TD DAILY #30 patch 08/19/17 Unknown Rx Benzonatate [Tessalon Perles] 100 mg PO Q8HR PRN #30 capsule 03/24/18 Unknown Rx HYDROcodone/APAP 5-325 [[place] 1 each PO Q6HR PRN #20 tablet 03/24/18 Unknown Rx 5/325] Inhaler, Assist Devices [Space 1 each MC PRN PRN #1 spacer 03/24/18 Unknown Rx Chamber Plus] RX: ALBUTEROL Inhaler [ProAir HFA 2 puff IH QID PRN #1 inhalation 03/24/18 Unknown Rx Inhaler] RX: Azithromycin [Zithromax Z-SUSU] 1 dose PO DAILY 5 Days tab 03/24/18 Unknown Rx RX: predniSONE [Deltasone] 40 mg PO QDAY 5 Days tab 03/24/18 Unknown Rx ED Physical Exam - General Limitations: No Limitations - Other Other exam information: General: No limitations, patient is alert in no acute distress Head exam: Atraumatic, normocephalic Eyes exam: Normal appearance ENT: Moist mucous membrane, normal oropharynx Neck exam: Normal inspection, full range of motion, no meningismus nontender Respiratory exam: Frequent dry cough, bilateral wheezing greatest on the right side. Crackles right base. No tachypnea or accessory muscle use Cardiovascular: Normal rate and rhythm. Left arm AV fistula positive thrill. Right chest wall Vas-Cath Abdomen: Soft, nondistended, and nontender, with normal bowel sounds, no rebound, or guarding Extremity: Full range of motion normal inspection no deformity, no calf tenderness or edema. Back: Normal Inspection, full range of motion, no tenderness Neurologic: Alert, oriented x3, cranial nerves intact, no motor or sensory deficit Psychiatric: normal affect, normal mood Skin: Warm, dry, intact ED Course Vital Signs 03/24/18 03/24/18 03/24/18 15:20 17:26 17:27 Temperature 98.9 F Pulse Rate 95 H 90 Pulse Rate [ 84 Anterior Bilateral Throughout] Respiratory 16 18 Rate Respiratory 20 Rate [Anterior Bilateral Throughout] Blood Pressure 144/63 Blood Pressure 143/55 [Right] O2 Sat by Pulse 95 96 Oximetry 03/24/18 03/24/18 03/24/18 18:18 18:34 18:41 Temperature Pulse Rate 81 Pulse Rate [ 83 Anterior Bilateral Throughout] Respiratory 18 18 Rate Respiratory 18 Rate [Anterior Bilateral Throughout] Blood Pressure Blood Pressure 148/61 [Right] O2 Sat by Pulse 96 98 Oximetry 03/24/18 03/24/18 19:29 19:53 Temperature Pulse Rate 85 87 Pulse Rate [ Anterior Bilateral Throughout] Respiratory 16 Rate Respiratory Rate [Anterior Bilateral Throughout] Blood Pressure Blood Pressure 130/77 [Right] O2 Sat by Pulse 96 Oximetry - Reevaluation(s) Reevaluation #1: 03/24/18 19:55 wheezing decreased after nebulized treatment. Persistent crackles left base. Pt reports feeling better - Consultations Consultation #1: 03/24/18 20:10 cased d/w Dr Glez, rec outpt f/u next week. ED Medical Decision Making - Lab Data Result diagrams: 03/24/18 17:24 03/24/18 17:24 Lab Results 03/24/18 03/24/18 Range/Units 17:24 17:24 WBC 6.9 (4.5-11.0) K/mm3 RBC 3.18 L (3.65-5.03) M/mm3 Hgb 11.5 (10.1-14.3) gm/dl Hct 33.9 (30.3-42.9) % MCV 107 H (79-97) fl MCH 36 H (28-32) pg MCHC 34 (30-34) % RDW 14.8 (13.2-15.2) % Plt Count 65 L (140-440) K/mm3 Lymph % (Auto) 11.5 L (13.4-35.0) % [place] % (Auto) 15.3 H (0.0-7.3) % Eos % (Auto) 2.3 (0.0-4.3) % Baso % (Auto) 0.2 (0.0-1.8) % Lymph # 0.8 L (1.2-5.4) K/mm3 [place] # 1.1 H (0.0-0.8) K/mm3 Eos # 0.2 (0.0-0.4) K/mm3 Baso # 0.0 (0.0-0.1) K/mm3 Seg Neutrophils % 70.7 H (40.0-70.0) % Seg Neutrophils # 4.9 (1.8-7.7) K/mm3 Sodium 136 L (137-145) mmol/L Potassium 3.8 (3.6-5.0) mmol/L Chloride 92.3 L (98-107) mmol/L Carbon Dioxide 29 (22-30) mmol/L Anion Gap 19 mmol/L BUN 7 (7-17) mg/dL Creatinine 2.2 H (0.7-1.2) mg/dL Estimated GFR 26 ml/min BUN/Creatinine Ratio 3 % Glucose 102 H (65-100) mg/dL Calcium 9.1 (8.4-10.2) mg/dL Total Bilirubin 0.30 (0.1-1.2) mg/dL AST 31 (5-40) units/L ALT 15 (7-56) units/L Alkaline Phosphatase 86 (35-129) units/L Total Protein 7.1 (6.3-8.2) g/dL Albumin 4.1 (3.9-5) g/dL Albumin/Globulin Ratio 1.4 % - EKG Data -: EKG Interpreted by Me EKG shows normal: sinus rhythm (rbbb), axis (qrs -27), QRS complexes (qrs 151), ST-T waves (no stemi/t inv) Rate: normal (85) - EKG Data When compared to previous EKG there are: previous EKG unavailable - Radiology Data Radiology results: image reviewed (read by me: cmg, no infiltrate or edema) - Medical Decision Making Acute bronchitis Patient has wheezes and crackles. No signs of infiltrate on chest x-ray. No signs of fever or leukocytosis. Patient will be covered with Z-Susu, prednisone , and albuterol inhaler with spacer Blood cultures pending Patient is patient received SoluMedrol, albuterol, Atrovent, [place], and Tessalon Perles in the ED with improvement. Thrombocytopenia History of same in the past per lab review that lower than normal. No reports of spontaneous bleeding. Hemoglobin normal. Calcium normal level. Given a history of multiple myeloma patient will be encouraged follow-up with her primary leather staker for further evaluation - Differential Diagnosis bronchitis, pneumonia, URI, CHF Critical Care Time: No Critical care attestation.: If time is entered above; I have spent that time in minutes in the direct care of this critically ill patient, excluding procedure time. ED Disposition Clinical Impression: ESRD (end stage renal disease), Acute bronchitis, Thrombocytopenia, HTN ( hypertension), Hx of multiple myeloma Disposition: DC-01 TO HOME OR SELFCARE Is pt being admited?: No Does the pt Need Aspirin: No Condition: Stable Instructions: Acute Bronchitis (ED), Hypertension (ED), Thrombocytopenia (ED) Additional Instructions: Your labs show that your platelet counts are lower than normal. Follow-up with your hematology oncologist for further monitoring and evaluation. Take the medications as prescribed for your respiratory symptoms. Your case was discussed with your amusement equipment operator. Follow up with Dr. Hirsch this week Prescriptions: RX: ALBUTEROL Inhaler [ProAir HFA Inhaler] 2 puff IH QID PRN #1 inhalation PRN Reason: Shortness Of Breath RX: Azithromycin [Zithromax Z-SUSU] 1 dose PO DAILY 5 Days tab Benzonatate [Tessalon Perles] 100 mg PO Q8HR PRN #30 capsule PRN Reason: Cough HYDROcodone/APAP 5-325 [[place] 5/325] 1 each PO Q6HR PRN #20 tablet PRN Reason: Pain Inhaler, Assist Devices [Space Chamber Plus] 1 each MC PRN PRN #1 spacer PRN Reason: Wheezing RX: predniSONE [Deltasone] 40 mg PO QDAY 5 Days tab Referrals: AIDE ORTIZ MD [Staff Physician] - 3-5 Days your, leather staker/oncologist [Other] - 3-5 Days Time of Disposition: 20:17
[2018-03-24 17:46] LABS: Basophils % (Auto) 0.2 % (0.0-1.8); Eosinophils # (Auto) 0.2 K/mm3 (0.0-0.4); Eosinophils % (Auto) 2.3 % (0.0-4.3); Hematocrit 33.9 % (30.3-42.9); Hemoglobin 11.5 gm/dl (10.1-14.3); Lymphocytes # (Auto) 0.8 K/mm3 (1.2-5.4); Lymphocytes % (Auto) 11.5 % (13.4-35.0); Mean Corpuscular HGB Conc 34 % (30-34); Mean Corpuscular Hemoglobin 36 pg (28-32); Mean Corpuscular Volume 107 fl (79-97); Monocytes # (Auto) 1.1 K/mm3 (0.0-0.8); Monocytes % (Auto) 15.3 % (0.0-7.3); Red Blood Count 3.18 M/mm3 (3.65-5.03); Red Cell Distribution Width 14.8 % (13.2-15.2)
[2018-03-24 17:53] LABS: Platelet Count 65 K/mm3 (140-440)
[2018-03-24 18:01] LABS: Albumin 4.1 g/dL (3.9-5); Calcium 9.1 mg/dL (8.4-10.2)
[2018-03-24 19:54] VITALS: BP 130/77
--- NOTE | 2018-03-24 20:49 | XRay Report ---
FINAL REPORT EXAM: XR CHEST ROUTINE 2V HISTORY: Weakness TECHNIQUE: Chest two views PA and lateral PRIORS: None. FINDINGS: There is mild cardiac enlargement. No focal pulmonary infiltrate identified. No pleural fluid collection seen. The pulmonary vasculature is unremarkable. There is a right-sided dialysis catheter with catheter tips at the SVC cavoatrial junction IMPRESSION: Mild cardiomegaly Right dialysis catheter in satisfactory position No acute pulmonary findings
== END 2018-03-24 20:49 | disposition home or self-care (01) ==
LOC: ED 15:15
DX: J20.9 Acute bronchitis, unspecified (principal); D69.6 Thrombocytopenia, unspecified; I12.0 Hypertensive chronic kidney disease with stage 5 chronic kidney disease or end stage renal disease; N18.6 End stage renal disease; Z99.2 Dependence on renal dialysis; F17.200 Nicotine dependence, unspecified, uncomplicated; Z90.710 Acquired absence of both cervix and uterus; Z79.82 Long term (current) use of aspirin
CPT/HCPCS: 36415; 71046; 80053; 85025; 87040; 93005; 93010; 94644; 96374; 99284; J2930

== ENCOUNTER 2018-06-18 08:18 | Day surgery (SDC) | payer MEDICARE ==
[~2018-06-18 08:18] MED LIST: ANCEF/STERILE WATER 2 GM/20 ML 2 GM/20 ML SYRINGE IV NR; NACL 0.9% 1000 ML 1,000 ML IV SCH
[2018-06-18] MEDS ORDERED: NACL 0.9% 500 ML 500 ML IV SCH (10:00)
[2018-06-18] MEDS ORDERED: HEPARIN/NS 5000 UNIT/500ML(CATH LAB) 1,000 ML IR ONE (10:57)
[2018-06-18] MEDS ORDERED: ANCEF/STERILE WATER 2 GM/20 ML 2 GM/20 ML SYRINGE IV ONE (10:57)
[2018-06-18] MEDS ORDERED: HEPARIN 10,000 UNITS/10 ML ONE (10:57)
[2018-06-18] MEDS: XYLOCAINE 2% INFILTRATI ONE ×2 (11:22→11:26)
[2018-06-18] MEDS: VERSED ONE ×3 (11:22→12:01)
[2018-06-18] MEDS: SUBLIMAZE ONE ×4 (11:22→12:31)
--- NOTE | 2018-06-18 12:50 | Short Stay Summary ---
Short Stay Documentation Date of service: 06/18/18 Narrative H&P: See H&P - History H&P: obtained from office - Allergies and Medications Current Medications: Allergies No Known Allergies Allergy (Verified 03/24/18 15:19) Home Medications Medication Instructions Recorded Confirmed Last Taken Type Simvastatin 20 mg PO HS 09/15/14 06/18/18 06/17/18 History 20mg Hydrochlorothiazide 25 mg PO DAILY 08/15/16 06/18/18 06/17/18 History 25mg Doxazosin Mesylate [Cardura] 2 mg PO QHS #30 tablet 04/01/17 06/18/18 06/18/18 06:30 Rx Gabapentin [Neurontin] 2 tab PO DAILY 06/18/18 06/18/18 06/17/18 History 2 tab Latanoprost 0.005% 1 drop INTRAOCULA DAILY 06/18/18 06/18/18 06/16/18 History 1 drop Ondansetron [Zofran TAB] 4 mg PO PRN PRN 06/18/18 06/18/18 06/17/18 History 4mg Active Medications Cefazolin Sodium (Ancef/Sterile Water 2 Gm/20 Ml) 2 gm in 20 mls @ 80 mls/hr IV PREOP NR; Protocol Stop: 06/18/18 23:59 Last Admin: 06/18/18 11:20 Dose: 20 mls Sodium Chloride (Nacl 0.9% 500 Ml) 500 mls @ 50 mls/hr IV DIRECT HOOD - Brief post op/procedure progress note Date of procedure: 06/18/18 Pre-op diagnosis: Complications of Dialysis Access Post-op diagnosis: same Procedure: 1. Access Left AV Fistula with 7 Lao Sheath Venous 2. Fistulogram with Central Venogram 3. Percutaneous Mechanical Thrombectomy with Trertolla 4. Angioplasty and Stent of Left AV Fistula with 5 x 20 Cutting Balloon, 7 x 60 & 7 x 80 Drug-Coated Balloons, 10 x 40 Balloon and 7 x 10 cm Viabahn Stent Graft 5. Radiologic Supervision with Interpretation Anesthesia: local, other (IV sedation) Surgeon: CHANEL WOODRUFF Estimated blood loss: minimal Pathology: none Condition: stable - Disposition Condition at discharge: Good Disposition: DC-01 TO HOME OR SELFCARE Short Stay Discharge Plan Activity: no restrictions Wound: open to air, keep clean and dry Prescriptions: Clopidogrel Bisulfate [Plavix] 75 mg PO DAILY #90 tablet
[2018-06-18] MEDS ORDERED: PLAVIX PO ONE (12:52)
[2018-06-18] MEDS ORDERED: PLAVIX ONE (13:00)
--- NOTE | 2018-06-18 13:00 | Operative Report ---
Operative Report Operative Report: Date of Procedure: 06/18/2018 Pre-operative Diagnosis: Complications of Dialysis Access Post-operative Diagnosis: Same Procedure(s): 1. Access Left AV Fistula with 7 [place] Sheath Venous 2. Fistulogram with Central Venogram 3. Percutaneous Mechanical Thrombectomy with Trertolla 4. Angioplasty and Stent of Left AV Fistula with 5 x 20 Cutting Balloon, 7 x 60 & 7 x 80 Drug-Coated Balloons, 10 x 40 Balloon and 7 x 10 cm Viabahn Stent Graft 5. Radiologic Supervision with Interpretation Surgeon: Ishaan Bacon M.D. Door Frame Assembler Machine: None Anesthesia: Local and IV sedation EBL: Minimal Counts: Correct Complications: None Condition: Stable Findings: The patient had occlusion of a previously placed stent in the cephalic arch with occlusion of the proximal cephalic arch and outflow of the fistula through multiple collateral branches. The central venous system was widely patent without flow-limiting stenosis. After intervention the previously placed stent as well as the remainder of the cephalic arch and fistula were widely patent with less than 10% residual stenosis. Specimen: None Indication: The patient is a 77-year-old female with history of end-stage renal disease who is on dialysis through a left arm AV fistula. She has had increased bleeding or high pressures and had a previous fistulogram that demonstrated occlusion of the cephalic arch as well as a previously placed stent. She presents for a fistulogram with intervention. She was given the risks, benefits, and alternative procedures and has consented to the procedure. Description of Procedure: The patient was brought to the labor relations or personnel negotiator and laid in supine position. After she was adequately sedated her left arm was prepped and draped in normal sterile fashion. After anesthetizing the skin and 11 blade was used to make a small stab incision and micropuncture technique was used to access the fistula towards the venous outflow. A 7 x 23 cm sheath was in place by Seldinger technique. A fistulogram was then performed with the previously described findings. I used a 5 [place] Navicross catheter and a 0.018 V18 wire and I was able to advance the wire and catheter to the origin of the occluded stent at the incision of the cephalic arch and the axillary vein. I then exchanged the Navicross catheter for a 0.035 TrailBlazer along with a 0.035 Advantage Wire and was able to enter the occluded stent and eventually the central venous system. I performed angioplasty of the occluded stent as well as the area of occlusion within the cephalic vein using the 5 x 20 Cutting Balloon. I then performed angioplasty of the stent and cephalic vein using a 7 mm balloon that I was able to bring up to profile. I treated the bare areas of the cephalic vein using a 7 x 60 Lutonix flowoed by a 7 x 80 INPact Drug-Coated Balloons. The follow-up was also widely patent cephalic vein without residual stenosis. There appeared to be thrombus within the vein graft which was treated with a Trertolla device used to morcellate and grind the thrombus off of the stent graft. There was some residual thrombus on the distal portion of the stent graft. Additionally there was stenosis at the flared and of the stent graft has a flared into the axillary vein and the distal end of the stent graft appeared to have a sharp angle which may have led to his thrombosis. I treated the distal thrombus and sharp angle of the stent graft with a 7 x 10 cm Viabahn Stent Graft used to cover the thrombus as well as soften the angle of the previous stent graft. This was postdilated with a 7 mm balloon. The overlap adequately covered the thrombus and adequately treated the angle. I used a 10 x 40 balloon to treat the stenosis in the flared end of the stent graft and reduced it from a 50% stenosis to a less than 15% stenosis. The final fistulogram demonstrated a patent fistula with less than 10% residual stenosis throughout its course. All balloons and wires were removed and a 4-0 chromic in pursestring fashion was used to close each entry site and the wounds were dressed with Dermabond. The patient tolerated the procedure well. All sponge, needle, instrument counts were correct. The patient was taken to the recovery area in stable condition.
[2018-06-18 14:08] VITALS: BP 137/52
== END 2018-06-18 14:25 | disposition home or self-care (01) ==
LOC: CATHLABREC 08:18
PROVIDERS: ATTEND Surgery Vascular Surgery
DX: T82.868A Thrombosis due to vascular prosthetic devices, implants and grafts, initial encounter (principal); I12.0 Hypertensive chronic kidney disease with stage 5 chronic kidney disease or end stage renal disease; N18.6 End stage renal disease; Y83.2 Surgical operation with anastomosis, bypass or graft as the cause of abnormal reaction of the patient, or of later complication, without mention of misadventure at the time of the procedure
CPT/HCPCS: 36415; 36906; 84132; 99156; 99157; C1725; C1757; C1769; C1874; C1887; C1894; C2623; J0690; J1644; J2250; J3010; J7040; Q9967

== ENCOUNTER 2018-08-14 12:07 | Inpatient (IN) | payer MEDICARE ==
[2018-08-14] MEDS ORDERED: HEPARIN/NS 5000 UNIT/500ML(CATH LAB) 1,000 ML IR ONE (13:47)
[2018-08-14] MEDS ORDERED: NACL 0.9% 500 ML 500 ML ONE (14:03)
--- NOTE | 2018-08-14 14:05 | Short Stay Summary ---
Short Stay Documentation Date of service: 08/14/18 - History Principal diagnosis: Malfunctioning dialysis access Past Medical History: dialysis, ESRD Past Surgical History: Other (LUE fistula) Social history: no significant social history, lives with family - Allergies and Medications Current Medications: Allergies No Known Allergies Allergy (Verified 03/24/18 15:19) Home Medications Medication Instructions Recorded Confirmed Last Taken Type Simvastatin 20 mg PO DAILY 09/15/14 08/14/18 08/14/18 07:00 History 20mg hydroCHLOROthiazide 25 mg PO DAILY 08/15/16 08/14/18 08/14/18 07:00 History [Hydrochlorothiazide] 25mg Doxazosin Mesylate [Cardura] 2 mg PO QHS #30 tablet 04/01/17 08/14/18 08/14/18 07:00 Rx 2mg Clopidogrel Bisulfate [Plavix] 75 mg PO DAILY #90 tablet 06/18/18 08/14/1808/14 Rx 75 mg Gabapentin [Neurontin] 2 tab PO DAILY 06/18/18 08/14/18 08/14/18 07:00 History Latanoprost 0.005% 1 drop INTRAOCULA DAILY 06/18/18 08/14/18 08/13/18 History 1 drop Ondansetron [Zofran TAB] 4 mg PO PRN PRN 06/18/18 08/14/18 08/14/18 07:00 History 4mg - Physical exam General appearance: no acute distress Integumentary: no rash, no growths HEENT: PERRLA Lungs: Normal air movement Breasts: deferred Heart: Regular rate Gastrointestinal: normal Female Genitourinary: deferred Rectal Exam: deferred Extremities: abnormal (thrombosed LUE fistula) Neurological: Normal gait, Normal speech - Brief post op/procedure progress note Date of procedure: 08/14/18 Pre-op diagnosis: nonfunctioning hemodialysis access Post-op diagnosis: same Procedure: Left upper extremity AV fistulogram, thrombectomy, venoplasty Anesthesia: local Surgeon: KIMBERLEY BECK Estimated blood loss: minimal Pathology: none Condition: stable - Disposition Condition at discharge: Good Disposition: [id number]/TX-[id number]-TRM GEN HOSP IP Short Stay Discharge Plan Activity: advance as tolerated Weight Bearing Status: Weight Bear as Tolerated Diet: renal Wound: keep clean and dry, per your surgeon's advice Follow up with: EMERSON HART MD [Primary Care Provider] - 7 Days
[2018-08-14] MEDS: VERSED ONE ×4 (14:16→14:53)
[2018-08-14] MEDS: SUBLIMAZE ONE ×7 (14:17→15:25)
[2018-08-14] MEDS: XYLOCAINE 2% INFILTRATI ONE ×2 (14:17→14:22)
[2018-08-14] MEDS: ANCEF/STERILE WATER 2 GM/20 ML 2 GM/20 ML SYRINGE IV ONE ×2 (14:18→14:20)
[2018-08-14] MEDS: HEPARIN 10,000 UNITS/10 ML ONE ×2 (14:32→15:18)
[2018-08-14] MEDS ORDERED: VERSED ONE (14:55)
[2018-08-14] MEDS: APRESOLINE ONE ×2 (15:05→15:14)
[2018-08-14] MEDS ORDERED: SODIUM CHLORIDE FLUSH SYRINGE 10 ML IV PRN (16:01)
[2018-08-14] MEDS ORDERED: ZOFRAN IV PRN (16:01)
--- NOTE | 2018-08-14 16:08 | History and Physical Report ---
History of Present Illness Chief complaint: My dialysis site looks infected History of present illness: 77 YO Female with ESRD on HD today, MM, HTN, Gout, Neuropathy, Anemia, admitted directly to hospitalist service as the request of Dr. Ishaan Bacon. Pt underwent elective LUE Thrombectomy and venoplasty today and was found to have evidence of infection/cellulitis. Pt seen and evaluated upon arrival. Pt acknowledges subjective fever, and weakness, but denies chills, CP, Palpitations , NVD, Shortness of Breath, Productive cough, unilateral leg swelling, calf pain , skin rash, productive cough, hematuria, dysuria, or recent ill contacts. No reported nursing events. Past History Past Medical History: dialysis, ESRD Past Surgical History: Other (LUE fistula) Social history: no significant social history, lives with family Family history: diabetes, hypertension Medications and Allergies Allergies Allergy/AdvReac Type Severity Reaction Status Date / Time No Known Allergies Allergy Verified 03/24/18 15:19 Home Medications Medication Instructions Recorded Confirmed Last Taken Type Simvastatin 20 mg PO DAILY 09/15/14 08/14/18 08/14/18 07:00 History 20mg hydroCHLOROthiazide 25 mg PO DAILY 08/15/16 08/14/18 08/14/18 07:00 History [Hydrochlorothiazide] 25mg Doxazosin Mesylate [Cardura] 2 mg PO QHS #30 tablet 04/01/17 08/14/18 08/14/18 07:00 Rx 2mg Clopidogrel Bisulfate [Plavix] 75 mg PO DAILY #90 tablet 06/18/18 08/14/1808/14 Rx 75 mg Gabapentin [Neurontin] 2 tab PO DAILY 06/18/18 08/14/18 08/14/18 07:00 History Latanoprost 0.005% 1 drop INTRAOCULA DAILY 06/18/18 08/14/18 08/13/18 History 1 drop Ondansetron [Zofran TAB] 4 mg PO PRN PRN 06/18/18 08/14/18 08/14/18 07:00 History 4mg Review of Systems Constitutional: fever, weakness, no weight loss, no weight gain, no chills Ears, nose, mouth and throat: no ear pain, no ear discharge, no tinnitis, no decreased hearing, no nose pain, no nasal congestion Breasts: no change in shape, no swelling, no mass Cardiovascular: no chest pain, no orthopnea, no palpitations, no rapid/ irregular heart beat, no edema Respiratory: no cough, no cough with sputum, no excessive sputum, no hemoptysis , no shortness of breath Gastrointestinal: no nausea, no vomiting, no diarrhea, no constipation, no change in bowel habits Genitourinary Female: no pelvic pain, no flank pain, no menorrhagia, no dysuria Rectal: no pain, no incontinence, no bleeding Musculoskeletal: no neck stiffness, no neck pain, no shooting arm pain, no arm numbness/tingling, no low back pain, no shooting leg pain, no leg numbness/ tingling Integumentary: no rash, no pruritis, no sores, no wounds Neurological: no head injury, no transient paralysis, no paralysis Psychiatric: no anxiety, no memory loss, no change in sleep habits Endocrine: no cold intolerance, no heat intolerance, no polyphagia, no excessive thirst, no polydipsia, no polyuria Hematologic/Lymphatic: no easy bruising, no easy bleeding Allergic/Immunologic: no urticaria, no allergic rhinitis, no wheezing, no persistent infections, no anaphylaxis Exam - Constitutional Vitals: Temp Pulse Resp BP Pulse Ox 100.7 F H 115 H 22 138/59 97 08/14/18 15:49 08/14/18 16:00 08/14/18 16:00 08/14/18 16:00 08/14/18 16:00 General appearance: Present: mild distress, obese - EENT Eyes: Present: PERRL ENT: hearing intact, clear oral mucosa - Neck Neck: Present: supple, normal ROM - Respiratory Respiratory effort: normal Respiratory: bilateral: CTA - Cardiovascular Heart Sounds: Present: S1 & S2. Absent: rub, click - Extremities Extremities: pulses symmetrical, No edema Peripheral Pulses: within normal limits - Abdominal General gastrointestinal: Present: soft, non-tender, non-distended, normal bowel sounds Female genitourinary: Present: normal - Integumentary Integumentary: Present: clear, warm, dry - Musculoskeletal Musculoskeletal: gait normal, strength equal bilaterally - Psychiatric Psychiatric: appropriate mood/affect, intact judgment & insight - Neurologic Neurologic: CNII-XII intact, moves all extremities Results - Labs CBC & Chem 7: 08/14/18 19:44 08/14/18 19:44 Assessment and Plan - Patient Problems (1) ESRD (end stage renal disease) on dialysis Current Visit: Yes Status: Acute Plan to address problem: Dialysis as per renal team,avoid nephrotoxic agents, strict I/o, monitor uop q shift. (2) SIRS (systemic inflammatory response syndrome) Current Visit: Yes Status: Acute Plan to address problem: IV antibiotic therapy,CBC, CMP, serial lactic acid, monitor uop q shift, (3) Acidosis Current Visit: Yes Status: Acute Plan to address problem: IVF resuscitation, repeat bmp, dialysis as per renal team. (4) Thrombosis of dialysis vascular access Current Visit: Yes Status: Acute Qualifiers: Encounter type: initial encounter Qualified Code(s): T82.868A - Thrombosis due to vascular prosthetic devices, implants and grafts, initial encounter Plan to address problem: VAscular surgery consulted, S/P trhombectomy (5) DVT prophylaxis Current Visit: No Status: Acute Plan to address problem: SCD to BLE while in bed
--- NOTE | 2018-08-14 16:31 | Operative Report ---
Operative Report Operative Report: Exam: Left upper extremity fistulogram, thrombectomy, venoplasty Clinical indication: Patient with thrombosed left upper extremity AV Stille that has been worked on yesterday at an outside access Center Date: 08/14/2018 Procedure: Following an explanation of the risks, benefits and alternatives; written informed consent was obtained. The patient was brought to the injury graphic suite and placed in supine position on the examination table. Initial ultrasound evaluation of the fistula demonstrated thrombus throughout the length of the fistula from the arterial anastomosis distally. The patient's left upper arm was prepped and draped in the usual sterile fashion. 1% lidocaine was used for anesthesia. Under ultrasound guidance, the fistula was cannulated towards the venous outflow using a 7 cm 21-gauge needle. A 0.018 guidewire was advanced centrally. The needle was removed and a micro-sheath placed. The 0.018 guidewire was exchanged for a 0.035 guidewire and the micro-sheath exchanged for a 7 [place] vascular sheath. Accessed towards the arterial anastomosis was obtained in a similar fashion and a 6 [place] sheath placed towards the arterial anastomosis. 4 [place] vertebral catheter was advanced over a 0.035 guidewire through the venous sheath. The guidewire and catheter were advanced centrally. Central veins are patent. There is thrombus extending from the previously placed stents in the cephalic arch. An additional stent in the region of the cephalic arch is also present that was not previously present at the last time in examination was performed by our group. Mechanical thrombectomy was performed using a loom cleaner thrombectomy device from the stents all the way to the sheath insertion site. A 0.035 guidewire and vertebral catheter were then manipulated to the arterial anastomosis. Jes balloon was then used to sweep the arterial blood. Was noted to be a 70-80% stenosis involving the juxta anastomotic fistula. This was treated using a 7 mm balloon. An additional stenosis is present within the cephalic arch at the site of previously placed stents. This was treated using an 8 mm balloon. Flow was present throughout the fistula. There is some abrupt transition at the cephalic arch which may ultimately result in narrowing and require additional stent placement. At the conclusion of the procedure, the she's were removed and hemostasis achieved using 4-0 Vicryl suture. Sterile dressings were then applied. The patient tolerated the procedure well. There were no immediate post procedure complications. Impression: 1) Left upper extremity fistulogram demonstrating thrombus extending from the arterial anastomosis to the cephalic arch. 2) Mechanical thrombectomy as described. 3) Treatment of a juxta anastomotic stenosis as well as in-stent stenosis with residual less than 10% stenosis. 4) Patient may required extension of the cephalic arch stents
[2018-08-14] MEDS ORDERED: VANCOMYCIN 1,500 MG in NACL 0.9% 500 ML 500 ML IV ONE (17:00)
[2018-08-14 20:05] LABS: Basophils % (Auto) 0.1 % (0.0-1.8); Eosinophils % (Auto) 0.3 % (0.0-4.3); Hematocrit 28.3 % (30.3-42.9); Hemoglobin 9.9 gm/dl (10.1-14.3); Lymphocytes # (Auto) 0.6 K/mm3 (1.2-5.4); Lymphocytes % (Auto) 6.5 % (13.4-35.0); Mean Corpuscular HGB Conc 35 % (30-34); Mean Corpuscular Hemoglobin 37 pg (28-32); Mean Corpuscular Volume 105 fl (79-97); Monocytes # (Auto) 0.8 K/mm3 (0.0-0.8); Monocytes % (Auto) 9.3 % (0.0-7.3); Platelet Count 134 K/mm3 (140-440); Red Cell Distribution Width 15.6 % (13.2-15.2)
[2018-08-14 20:26] LABS: Albumin 3.6 g/dL (3.9-5); Calcium 8.4 mg/dL (8.4-10.2)
[2018-08-14] MEDS ORDERED: ZOSYN/NS 4.5GM/100ML 4.5 GM/100 ML VIAL IV SCH (22:00)
[2018-08-14] MEDS ORDERED: ZOSYN/NS 2.25 GM/50ML 2.25 GM/50 ML BAG IV SCH (22:00)
[2018-08-15] MEDS: SODIUM CHLORIDE FLUSH SYRINGE 10 ML IV SCH ×2 (00:11→12:01)
[2018-08-15] MEDS ORDERED: ZOFRAN PO PRN (06:33)
--- NOTE | 2018-08-15 08:18 | Progress Note ---
Assessment and Plan Assessment and plan: Patient is a 77 yo woman with a history of ESRD on HD, MM, HTN, Gout, Neuropathy and AOCD who was admitted directly to hospitalist service at the request of Dr. Ishaan Bacon, Vascular Surgeon. Pt underwent elective outpatient LUE Thrombectomy and venoplasty on 08/14/18 and was found to have evidence of infection/cellulitis. ESRD (end stage renal disease) on dialysis Dialysis as per renal team,avoid nephrotoxic agents Consulted ID SIRS (systemic inflammatory response syndrome)==>SEPSIS was poa, left AVF site re-ordered IV Vancomycin and consulted ID Acidosis IVF resuscitation, repeat bmp, dialysis as per renal team. Thrombosis of dialysis vascular access VAscular surgery consulted, S/P trhombectomy AOCD monitor h/h closely Thrombocytopenia follow plt counts closely, DVT prophylaxis SCD to BLE while in bed on plavix History Interval history: Patient was seen and examined. Follow-up on current diagnosis of infected HD access site. Overnight eventful with fevers. Patient denies any chest pain, shortness breath, nausea/vomiting or severe headaches. Imaging, nursing note, chart, labs and old chart reviewed. No Labs were ordered for today. Discussed with patient. Hospitalist Physical - Physical exam Narrative exam: GEN: WDWN, NAD, Awake, Alert, Orientated HEENT: NCAT, EOMI, PERRL, OP Clear NECK: supple, no adenopathy, no thyromegaly, no JVD CVS/HEART: RRR, normal S1S2, pulses present bilaterally CHEST/LUNGS: CTA B, Symmetrical chest expansion, good air entry bilaterally GI/Abdomen: soft, NTND, good bowel sounds, no guarding or rebound /Bladder: no suprapubic tenderness, no CVA or paraspinal tenderness EXT/Skin: no c/c/e, no obvious rash MSK: FROM x 4 Neuro: CN 2-12 grossly intact, no new focal deficits Psych: calm - Constitutional Vitals: Temp Pulse Resp BP Pulse Ox 99.4 F 76 18 135/50 96 08/15/18 07:42 08/15/18 07:42 08/15/18 07:42 08/15/18 07:42 08/15/18 07:42 General appearance: Present: obese. Absent: mild distress Results - Labs CBC & Chem 7: 08/14/18 19:44 08/14/18 19:44 Labs: Laboratory Last Values WBC 9.0 K/mm3 (4.5-11.0) 08/14/18 19:44 RBC 2.70 M/mm3 (3.65-5.03) L 08/14/18 19:44 Hgb 9.9 gm/dl (10.1-14.3) L 08/14/18 19:44 Hct 28.3 % (30.3-42.9) L 08/14/18 19:44 MCV 105 fl (79-97) H 08/14/18 19:44 MCH 37 pg (28-32) H 08/14/18 19:44 MCHC 35 % (30-34) H 08/14/18 19:44 RDW 15.6 % (13.2-15.2) H 08/14/18 19:44 Plt Count 134 K/mm3 (140-440) L 08/14/18 19:44 Lymph % (Auto) 6.5 % (13.4-35.0) L 08/14/18 19:44 [place] % (Auto) 9.3 % (0.0-7.3) H 08/14/18 19:44 Eos % (Auto) 0.3 % (0.0-4.3) 08/14/18 19:44 Baso % (Auto) 0.1 % (0.0-1.8) 08/14/18 19:44 Lymph # 0.6 K/mm3 (1.2-5.4) L 08/14/18 19:44 [place] # 0.8 K/mm3 (0.0-0.8) 08/14/18 19:44 Eos # 0.0 K/mm3 (0.0-0.4) 08/14/18 19:44 Baso # 0.0 K/mm3 (0.0-0.1) 08/14/18 19:44 Seg Neutrophils % 83.8 % (40.0-70.0) H 08/14/18 19:44 Seg Neutrophils # 7.6 K/mm3 (1.8-7.7) 08/14/18 19:44 Sodium 136 mmol/L (137-145) L 08/14/18 19:44 Potassium 5.0 mmol/L (3.6-5.0) 08/14/18 19:44 Chloride 99.0 mmol/L (98-107) 08/14/18 19:44 Carbon Dioxide 20 mmol/L (22-30) L 08/14/18 19:44 Anion Gap 22 mmol/L 08/14/18 19:44 BUN 65 mg/dL (7-17) H 08/14/18 19:44 Creatinine 8.1 mg/dL (0.7-1.2) H 08/14/18 19:44 Estimated GFR 6 ml/min 08/14/18 19:44 BUN/Creatinine Ratio 8 % 08/14/18 19:44 Glucose 111 mg/dL (65-100) H 08/14/18 19:44 Lactic Acid 1.00 mmol/L (0.7-2.0) 08/14/18 22:30 Calcium 8.4 mg/dL (8.4-10.2) 08/14/18 19:44 Total Bilirubin 0.20 mg/dL (0.1-1.2) 08/14/18 19:44 AST 16 units/L (5-40) 08/14/18 19:44 ALT 8 units/L (7-56) 08/14/18 19:44 Alkaline Phosphatase 62 units/L (35-129) 08/14/18 19:44 Total Protein 6.2 g/dL (6.3-8.2) L 08/14/18 19:44 Albumin 3.6 g/dL (3.9-5) L 08/14/18 19:44 Albumin/Globulin Ratio 1.4 % 08/14/18 19:44
[2018-08-15] MEDS ORDERED: VANCOMYCIN PHARMACY TO DOSE IV SCH (09:00)
--- NOTE | 2018-08-15 09:05 | Progress Note ---
Assessment and Plan Patient is doing well compared to yesterday. She will undergo dialysis today. Following her dialysis, from a vascular point of view, the patient may be discharged home. Subjective Date of service: 08/15/18 Principal diagnosis: Malfunctioning dialysis access Interval history: Patient presented with thrombosed left upper extremity AV fistula and fever and chills. At time of examinations this morning, her fever and chills have nearly completely resolved. Patient is alert and oriented. Scheduled for dialysis this morning. Objective - Constitutional Vitals: Vital Signs - 12hr 08/15/18 08/15/18 02:11 07:42 Temperature 100.3 F H 99.4 F Pulse Rate 74 76 Respiratory 18 18 Rate Blood Pressure 125/49 135/50 O2 Sat by Pulse 98 96 Oximetry General appearance: Present: no acute distress - EENT Eyes: PERRL, EOM intact ENT: hearing intact - Neck Neck: supple, normal ROM - Respiratory Respiratory effort: normal Extremities: no ischemia, abnormal (left upper extremity AV fistula) - Gastrointestinal General gastrointestinal: Present: deferred Rectal Exam: deferred - Genitourinary Female genitourinary: deferred - Integumentary Integumentary: clear, warm - Psychiatric Psychiatric: appropriate mood/affect, cooperative - Labs CBC & Chem 7: 08/14/18 19:44 08/14/18 19:44 Labs: Abnormal lab results 08/14/18 08/14/18 Range/Units 19:44 19:44 RBC 2.70 L (3.65-5.03) M/mm3 Hgb 9.9 L (10.1-14.3) gm/dl Hct 28.3 L (30.3-42.9) % MCV 105 H (79-97) fl MCH 37 H (28-32) pg MCHC 35 H (30-34) % RDW 15.6 H (13.2-15.2) % Plt Count 134 L (140-440) K/mm3 Lymph % (Auto) 6.5 L (13.4-35.0) % [place] % (Auto) 9.3 H (0.0-7.3) % Lymph # 0.6 L (1.2-5.4) K/mm3 Seg Neutrophils % 83.8 H (40.0-70.0) % Sodium 136 L (137-145) mmol/L Carbon Dioxide 20 L (22-30) mmol/L BUN 65 H (7-17) mg/dL Creatinine 8.1 H (0.7-1.2) mg/dL Glucose 111 H (65-100) mg/dL Total Protein 6.2 L (6.3-8.2) g/dL Albumin 3.6 L (3.9-5) g/dL
[2018-08-15] MEDS: NEURONTIN PO SCH (10:06)
[2018-08-15] MEDS: HCTZ PO SCH (10:10)
[2018-08-15] MEDS: PLAVIX PO SCH (10:10)
--- NOTE | 2018-08-15 10:46 | Consultation ---
History of Present Illness - Reason for Consult Consult date: 08/15/18 end stage renal disease - History of Present Illness The patient is a 76 YO AAF with history significant for ESRD on hemodialysis ( TTS), Hypertension, Anemia, Hyperlipidemia, Multiple Myeloma and Hyperuricemia who was sent to the hospital from dialysis unit for evaluation of malfunctioning AVF. Patient ws noted to have prolonged bleeding from the AVF at the end of hemodialysis. She underwent stent placement at the Vascular access center in [place] on 08/13/2018. Yesterday she had difficulty in using the AVF. She underwent angioplasty yesterday evening. Patient missed HD yesterday. Past History Past Medical History: anemia, cancer, dialysis, ESRD, hypertension, hyperlipidemia, other (Myeloma) Past Surgical History: Other (LUE fistula) Social history: no significant social history, lives with family Family history: diabetes, hypertension Medications and Allergies Allergies Allergy/AdvReac Type Severity Reaction Status Date / Time No Known Allergies Allergy Verified 03/24/18 15:19 Home Medications Medication Instructions Recorded Confirmed Last Taken Type Simvastatin 20 mg PO DAILY 09/15/14 08/14/18 08/14/18 07:00 History 20mg hydroCHLOROthiazide 25 mg PO DAILY 08/15/16 08/14/18 08/14/18 07:00 History [Hydrochlorothiazide] 25mg Doxazosin Mesylate [Cardura] 2 mg PO QHS #30 tablet 04/01/17 08/14/18 08/14/18 07:00 Rx 2mg Clopidogrel Bisulfate [Plavix] 75 mg PO DAILY #90 tablet 06/18/18 08/14/1808/14 Rx 75 mg Gabapentin [Neurontin] 2 tab PO DAILY 06/18/18 08/14/18 08/14/18 07:00 History Latanoprost 0.005% 1 drop INTRAOCULA DAILY 06/18/18 08/14/18 08/13/18 History 1 drop Ondansetron [Zofran TAB] 4 mg PO PRN PRN 06/18/18 08/14/18 08/14/18 07:00 History 4mg Active Meds: Active Medications Acetaminophen (Tylenol) 650 mg PO Q4H PRN PRN Reason: Pain MILD(1-3)/Fever >100.5/[place] Clopidogrel Bisulfate (Plavix) 75 mg PO DAILY [facility] Last Admin: 08/15/18 10:10 Dose: Not Given Doxazosin Mesylate (Cardura) 2 mg PO QHS [facility] Gabapentin (Neurontin) 200 mg PO DAILY [facility] Last Admin: 08/15/18 10:06 Dose: 200 mg Hydrochlorothiazide (Hctz) 25 mg PO DAILY [facility] Last Admin: 08/15/18 10:10 Dose: Not Given Piperacillin Sod/Tazobactam Sod (Zosyn/Ns 2.25 Gm/50ml) 2.25 gm in 50 mls @ 100 mls/hr IV Q8HR [facility] Latanoprost (Latanoprost 0.005%) 1 drops OD DAILY [facility] Ondansetron HCl (Zofran) 4 mg IV Q8H PRN PRN Reason: Nausea And Vomiting Pravastatin Sodium (Pravachol) 40 mg PO QHS [facility] Sodium Chloride (Sodium Chloride Flush Syringe 10 Ml) 10 ml IV BID [facility] Last Admin: 08/15/18 00:11 Dose: 10 ml Sodium Chloride (Sodium Chloride Flush Syringe 10 Ml) 10 ml IV PRN PRN PRN Reason: LINE FLUSH Last Admin: 08/15/18 10:11 Dose: 10 ml Review of Systems Constitutional: fever, chills, fatigue, no weight loss, no weight gain, no anorexia, no weakness Breasts: deferred Cardiovascular: high blood pressure, no chest pain, no orthopnea, no edema, no syncope, no lightheadedness, no shortness of breath, no leg edema Respiratory: no cough, no hemoptysis, no shortness of breath, no dyspnea on exertion Gastrointestinal: no abdominal pain, no nausea, no vomiting, no diarrhea Genitourinary Female: no dysuria, no hematuria Rectal: no bleeding Integumentary: no rash, no wounds, no jaundice Neurological: weakness, no paralysis, no seizures, no syncope, no headaches, no aphasia, no change in speech, no change in mentation, no confusion Psychiatric: memory loss (chronic) Exam - Vital Signs Vital signs: Vital Signs Temp Pulse Resp BP Pulse Ox 97.9 F 70 18 159/71 96 08/14/18 12:41 08/14/18 12:41 08/14/18 12:41 08/14/18 12:41 08/14/18 12:41 - General Appearance General appearance: well-developed, well-nourished, appears stated age, other ( not in distress) EENT: ATNC, PERRL, hearing intact, vision intact Neck: Present: neck supple, trachea midline Respiratory: Clear to Ascultation Heart: regular, S1S2, no murmurs Gastrointestinal: Present: normoactive bowel sounds Integumentary: no rash, warm and dry Neurologic: no focal deficit, alert and oriented x3, other (tremors vs asterixis ) Musculoskeletal: Present: other (no edema, lefta rm AVF with no bruit) Psychiatric: cooperative Results - Lab Results 08/14/18 19:44 08/14/18 19:44 Most recent lab results Calcium 8.4 mg/dL (8.4-10.2) 08/14/18 19:44 Assessment and Plan 1. Malfunctioning AVF: D/w . Scheduled to undergo Angioplasty today. 2. ESRD: Hemodialysis today after angioplasty. 3. Fever: Blood culture ordered. 4. Anemia: Epogen as needed. 5. HTN: BP well controlled.
[2018-08-15] MEDS: ZOSYN/NS 2.25 GM/50ML 2.25 GM/50 ML BAG IV SCH ×2 (11:51→22:00)
[2018-08-15] MEDS: LATANOPROST 0.005% OD SCH (11:54)
[2018-08-15] MEDS ORDERED: HEPARIN 10,000 UNITS/10 ML ONE (14:00)
[2018-08-15] MEDS ORDERED: HEPARIN/NS 5000 UNIT/500ML(CATH LAB) 1,000 ML IR ONE (14:00)
[2018-08-15] MEDS ORDERED: NACL 0.9% 250ML 250 ML ONE (14:07)
[2018-08-15] MEDS ORDERED: CATHFLO ONE (14:25)
[2018-08-15] MEDS: VERSED ONE ×2 (14:26→14:37)
[2018-08-15] MEDS: SUBLIMAZE ONE ×3 (14:26→14:45)
[2018-08-15] MEDS: XYLOCAINE 2% INFILTRATI ONE ×2 (14:27→15:05)
[2018-08-15] MEDS ORDERED: VERSED ONE (15:03)
[2018-08-15] MEDS ORDERED: SUBLIMAZE ONE (15:04)
--- NOTE | 2018-08-15 15:28 | Operative Report ---
Operative Report Operative Report: Exam: Exam: Left upper extremity thrombectomy, venoplasty with stent placement Clinical indication: Patient with a history of end-stage renal disease on dialysis with a brachiocephalic fistula with thrombus. Date: 08/15/2018 Procedure: Following an expiration of the risks, benefits and alternatives; written informed consent was obtained. Patient was brought to the angiographic suite and placed in supine position on the examination table. Initial ultrasound evaluation of her arm demonstrated thrombus extending from the arterial anastomosis distally. Patient's upper arm was prepped and draped in usual sterile fashion. 1% lidocaine was used for anesthesia. Under ultrasound guidance, the fistula was cannulated with a 7 cm 21-gauge needle. A 0.018 guidewire was advanced centrally. The needle was removed and a micro-sheath placed. The 0.018 guidewire was exchanged for a 0.035 guidewire and a micro-sheath exchanged for a 5 Kyrgyz vascular sheath. A 4 Kyrgyz vertebral catheter was advanced over the guidewire. Together the guidewire and catheter were advanced centrally. There is thrombus extending from the cephalic arch stents to the sheath insertion site. 6 mg of TPA was then laced throughout the thrombus and macerated with the J wire. Balloon maceration of the thrombus was then performed using an 8 mm balloon. Again noted is extrinsic compression of the cephalic arch stents from a externally placed stent. A second 6 Kyrgyz sheath was advanced towards the arterial anastomosis in a similar fashion as above and a 4 Kyr[place]z vertebral catheter and 0.035 guidewire advanced to the arterial anastomosis. There arterial blood was swept free since Jes balloon. Post thrombectomy imaging demonstrated flow throughout the graft with residual stenosis within and at the distal end of the stent. A decision was made to re-line the stents with stent graft material. An 8 mm x 15 cm Viabon stent graft was advanced and deployed from the subclavian vein to the distal cephalic vein. The stent was seated using a 7 mm balloon followed by an 8 mm balloon. Post stent deployment imaging demonstrated brisk flow throughout the fistula. At this point, the catheters, guidewires and she's were removed and hemostasis achieved using 4-0 Vicryl suture and Dermabond. A sterile dressing was then applied. The patient tolerated the procedure well. There were no immediate post procedure complications. Conscious sedation was performed in the guidance of radiologic nursing. Continuous [place] monitoring was utilized. Impression: 1) Upper extremity venogram demonstrating thrombus extending from the arterial anastomosis to the cephalic arch stents within this AV fistula. 2 ) Mechanical and pharmacological thrombectomy as described. 3) Venoplasty with stent placement from the subclavian vein to the cephalic vein with brisk flow at the conclusion of the procedure.
[2018-08-15] MEDS ORDERED: NACL 0.9% 100 ML IV PRN (15:30)
[2018-08-15] MEDS ORDERED: VANCOMYCIN/NS 1 GM/250 ML 1 GM/250 ML BAG IV SCH (18:00)
[2018-08-15] MEDS ORDERED: TYLENOL ONE (18:50)
[2018-08-15] MEDS: TYLENOL PO PRN (18:52)
[2018-08-15] MEDS: PRAVACHOL PO SCH (22:30)
[2018-08-16] MEDS: CARDURA PO SCH ×2 (00:12→22:02)
[2018-08-16 07:00] LABS: Hematocrit 25.5 % (30.3-42.9); Hemoglobin 8.9 gm/dl (10.1-14.3); Mean Corpuscular HGB Conc 35 % (30-34); Mean Corpuscular Hemoglobin 37 pg (28-32); Mean Corpuscular Volume 105 fl (79-97); Platelet Count 158 K/mm3 (140-440); Red Blood Count 2.43 M/mm3 (3.65-5.03); Red Cell Distribution Width 16.6 % (13.2-15.2)
--- NOTE | 2018-08-16 07:12 | Progress Note ---
Assessment and Plan Assessment and plan: Patient is a 77 yo woman with a history of ESRD on HD TTS, MM, HTN, Gout, Neuropathy and AOCD who was admitted directly to hospitalist service at the request of Dr. Ishaan Bacon, Vascular Surgeon. Pt underwent elective outpatient LUE Thrombectomy and venoplasty on 08/14/18 and was found to have evidence of infection/cellulitis. ESRD (end stage renal disease) on dialysis Dialysis as per renal team,avoid nephrotoxic agents Consulted Nephrology SIRS (systemic inflammatory response syndrome)==>SEPSIS was poa, left AVF site re-ordered IV Vancomycin with closely monitoring and consulted ID continue IV Zosyn Acidosis IVF resuscitation, repeat bmp, dialysis as per renal team. Thrombosis of dialysis vascular access VAscular surgery consulted, S/P trhombectomy AOCD monitor h/h closely Thrombocytopenia follow plt counts closely, DVT prophylaxis SCD to BLE while in bed on plavix BMP pending, h/h slight drop will continue to monitor closely, recheck in am. Temp 102.9F, give tylenol Await ID input History Interval history: Patient was seen and examined. Follow-up on current diagnosis of infected HD access site. Overnight eventful with fevers. Patient denies any chest pain, shortness breath, nausea/vomiting or severe headaches. Imaging, nursing note, chart, labs and old chart reviewed. No Labs were ordered for today. Discussed with patient. Hospitalist Physical - Physical exam Narrative exam: GEN: WDWN, NAD, Awake, Alert, Orientated HEENT: NCAT, EOMI, PERRL, OP Clear NECK: supple, no adenopathy, no thyromegaly, no JVD CVS/HEART: RRR, normal S1S2, pulses present bilaterally CHEST/LUNGS: CTA B, Symmetrical chest expansion, good air entry bilaterally GI/Abdomen: soft, NTND, good bowel sounds, no guarding or rebound /Bladder: no suprapubic tenderness, no CVA or paraspinal tenderness EXT/Skin: left upper arm swollen MSK: FROM x 4 Neuro: CN 2-12 grossly intact, no new focal deficits Psych: calm - Constitutional Vitals: Temp Pulse Resp BP Pulse Ox 102.9 F H 97 H 18 128/47 91 08/16/18 02:10 08/16/18 02:10 08/16/18 02:10 08/16/18 02:10 08/16/18 02:10 General appearance: Absent: mild distress, obese Results - Labs CBC & Chem 7: 08/16/18 06:36 08/14/18 19:44 Labs: Laboratory Last Values WBC 8.0 K/mm3 (4.5-11.0) 08/16/18 06:36 RBC 2.43 M/mm3 (3.65-5.03) L 08/16/18 06:36 Hgb 8.9 gm/dl (10.1-14.3) L 08/16/18 06:36 Hct 25.5 % (30.3-42.9) L 08/16/18 06:36 MCV 105 fl (79-97) H 08/16/18 06:36 MCH 37 pg (28-32) H 08/16/18 06:36 MCHC 35 % (30-34) H 08/16/18 06:36 RDW 16.6 % (13.2-15.2) H 08/16/18 06:36 Plt Count 158 K/mm3 (140-440) 08/16/18 06:36 Lymph % (Auto) 6.5 % (13.4-35.0) L 08/14/18 19:44 [place] % (Auto) 9.3 % (0.0-7.3) H 08/14/18 19:44 Eos % (Auto) 0.3 % (0.0-4.3) 08/14/18 19:44 Baso % (Auto) 0.1 % (0.0-1.8) 08/14/18 19:44 Lymph # 0.6 K/mm3 (1.2-5.4) L 08/14/18 19:44 [place] # 0.8 K/mm3 (0.0-0.8) 08/14/18 19:44 Eos # 0.0 K/mm3 (0.0-0.4) 08/14/18 19:44 Baso # 0.0 K/mm3 (0.0-0.1) 08/14/18 19:44 Seg Neutrophils % 83.8 % (40.0-70.0) H 08/14/18 19:44 Seg Neutrophils # 7.6 K/mm3 (1.8-7.7) 08/14/18 19:44 Sodium 136 mmol/L (137-145) L 08/14/18 19:44 Potassium 5.0 mmol/L (3.6-5.0) 08/14/18 19:44 Chloride 99.0 mmol/L (98-107) 08/14/18 19:44 Carbon Dioxide 20 mmol/L (22-30) L 08/14/18 19:44 Anion Gap 22 mmol/L 08/14/18 19:44 BUN 65 mg/dL (7-17) H 08/14/18 19:44 Creatinine 8.1 mg/dL (0.7-1.2) H 08/14/18 19:44 Estimated GFR 6 ml/min 08/14/18 19:44 BUN/Creatinine Ratio 8 % 08/14/18 19:44 Glucose 111 mg/dL (65-100) H 08/14/18 19:44 Lactic Acid 1.00 mmol/L (0.7-2.0) 08/14/18 22:30 Calcium 8.4 mg/dL (8.4-10.2) 08/14/18 19:44 Total Bilirubin 0.20 mg/dL (0.1-1.2) 08/14/18 19:44 AST 16 units/L (5-40) 08/14/18 19:44 ALT 8 units/L (7-56) 08/14/18 19:44 Alkaline Phosphatase 62 units/L (35-129) 08/14/18 19:44 Total Protein 6.2 g/dL (6.3-8.2) L 08/14/18 19:44 Albumin 3.6 g/dL (3.9-5) L 08/14/18 19:44 Albumin/Globulin Ratio 1.4 % 08/14/18 19:44
[2018-08-16 07:20] LABS: Calcium 8.2 mg/dL (8.4-10.2)
--- NOTE | 2018-08-16 07:48 | Progress Note ---
Assessment and Plan 1. Malfunctioning AVF: S/p thrombectomy. 2. ESRD: Continue hemodialysis three times a week, TTS schedule. 3. Fever: Blood culture pending. ID is following. 4. Anemia: Epogen with HD. 5. HTN: BP well controlled. Subjective Date of service: 08/16/18 Principal diagnosis: Malfunctioning dialysis access Interval history: Patient is doing ok. Objective - Vital Signs Vital signs: Vital Signs - 12hr 08/15/18 08/15/18 08/16/18 20:25 20:40 00:12 Temperature 99.2 F 99.2 F Pulse Rate 85 85 Respiratory 18 20 Rate Blood Pressure 111/39 111/51 111/51 O2 Sat by Pulse 96 Oximetry 08/16/18 02:10 Temperature 102.9 F H Pulse Rate 97 H Respiratory 18 Rate Blood Pressure 128/47 O2 Sat by Pulse 91 Oximetry - General Appearance General appearance: well-developed, well-nourished, appears stated age, other ( not in distress) EENT: ATNC, PERRL, mucous membranes moist, hearing intact, vision intact Neck: supple Respiratory: Present: Clear to Ascultation Cardiology: regular, S1S2, no murmurs Gastrointestinal: normoactive bowel sounds, no tenderness Integumentary: no rash, warm and dry Neurologic: no focal deficit, alert and oriented x3 Musculoskeletal: other (no edema, left arm AVF) Psychiatric: cooperative - Lab 08/16/18 06:36 08/16/18 06:36 Most recent lab results Calcium 8.2 mg/dL (8.4-10.2) L 08/16/18 06:36
[2018-08-16] MEDS ORDERED: VANCOMYCIN/NS 1 GM/250 ML 1 GM/250 ML BAG IV ONE (08:00)
[2018-08-16] MEDS ORDERED: NACL 0.9% 100 ML IV PRN (08:29)
[2018-08-16] MEDS: NEURONTIN PO SCH (09:37)
[2018-08-16] MEDS: PLAVIX PO SCH (09:37)
[2018-08-16] MEDS: TYLENOL PO PRN ×2 (09:38→14:49)
[2018-08-16] MEDS: HCTZ PO SCH (09:38)
--- NOTE | 2018-08-16 10:35 | Consultation ---
History of Present Illness - Reason for Consult Consult date: 08/16/18 HD access site infection Requesting physician: SUDEEP KEARNEY - History of Present Illness The patient is a 77-year-old female with ESRD on hemodialysis, multiple myeloma , hypertension, gout, neuropathy, anemia who presented to the hospital on 2017 as a direct admission with complaints of her dialysis site looking infected. She reported subjective fever, temperature on admission was 100.7F with a WBC count of 9. Prior to that, on the same day, the patient underwent a left upper extremity fistulogram, thrombectomy and venoplasty. She had findings of thrombus extending from the arterial anastomosis to the cephalic arch. Upon admission, patient had blood cultures done and was started on empiric IV vancomycin. She successfully underwent dialysis yesterday. She underwent another thrombectomy, venoplasty and stent placement on 08/15/2018. He was also initiated on Zosyn. At 2 AM this morning, patient had another fever of 102.9F and was given Tylenol. Patient was seen today at dialysis, denies any new complaints except for pain during insertion of 4 dialysis needle. She denies any specific fevers prior to admission. She denies any cough or shortness of breath. Denies any nausea, vomiting or diarrhea. She makes minimal amount of urine and denies any urinary complaints as such. Denies any previous AV fistula infections. Review of Systems: General: fevers + as above, no chills or rigors HEENT: no new visual disturbance Respiratory: No cough, sputum, hemoptysis or shortness of breath Cardiovascular: No chest pain, syncope Gastrointestinal: No nausea, vomiting or diarrhea Genitourinary: No dysuria or hematuria Musculoskeletal: No new or worsening neck pain or back pain Neurologic: No headaches, seizures Hematologic: No easy bruising or bleeding Endocrine: No night sweats or acute weight loss Skin: negative for rash, jaundice Psychiatric: No suicidal or homicidal ideation Past History Past Medical History: anemia, cancer, dialysis, ESRD, hypertension, hyperlipidemia, other (Myeloma) Past Surgical History: Other (LUE fistula) Social history: no significant social history, lives with family Family history: diabetes, hypertension Medications and Allergies Allergies Allergy/AdvReac Type Severity Reaction Status Date / Time No Known Allergies Allergy Verified 03/24/18 15:19 Home Medications Medication Instructions Recorded Confirmed Last Taken Type Simvastatin 20 mg PO DAILY 09/15/14 08/14/18 08/14/18 07:00 History 20mg hydroCHLOROthiazide 25 mg PO DAILY 08/15/16 08/14/18 08/14/18 07:00 History [Hydrochlorothiazide] 25mg Doxazosin Mesylate [Cardura] 2 mg PO QHS #30 tablet 04/01/17 08/14/18 08/14/18 07:00 Rx 2mg Clopidogrel Bisulfate [Plavix] 75 mg PO DAILY #90 tablet 06/18/18 08/14/1808/14 Rx 75 mg Gabapentin [Neurontin] 2 tab PO DAILY 06/18/18 08/14/18 08/14/18 07:00 History Latanoprost 0.005% 1 drop INTRAOCULA DAILY 06/18/18 08/14/18 08/13/18 History 1 drop Ondansetron [Zofran TAB] 4 mg PO PRN PRN 06/18/18 08/14/18 08/14/18 07:00 History 4mg Active Meds: Active Medications Acetaminophen (Tylenol) 650 mg PO Q4H PRN PRN Reason: Pain MILD(1-3)/Fever >100.5/[place] Last Admin: 08/16/18 09:38 Dose: 650 mg Clopidogrel Bisulfate (Plavix) 75 mg PO DAILY [facility] Last Admin: 08/16/18 09:37 Dose: 75 mg Doxazosin Mesylate (Cardura) 2 mg PO QHS [facility] Last Admin: 08/16/18 00:12 Dose: Not Given Epoetin Ulises (Procrit) 10,000 unit SUB-Q [facility]IE PRN PRN Reason: hemodialysis Gabapentin (Neurontin) 200 mg PO DAILY [facility] Last Admin: 08/16/18 09:37 Dose: 200 mg Hydrochlorothiazide (Hctz) 25 mg PO DAILY [facility] Last Admin: 08/16/18 09:38 Dose: Not Given Piperacillin Sod/Tazobactam Sod (Zosyn/Ns 2.25 Gm/50ml) 2.25 gm in 50 mls @ 100 mls/hr IV Q8HR [facility] Last Admin: 08/15/18 22:00 Dose: 100 mls/hr Sodium Chloride (Nacl 0.9%) 100 mls @ 999 mls/hr IV VALARIE PRN PRN Reason: Hypotension Latanoprost (Latanoprost 0.005%) 1 drops OD DAILY [facility] Last Admin: 08/15/18 11:54 Dose: Not Given Ondansetron HCl (Zofran) 4 mg IV Q8H PRN PRN Reason: Nausea And Vomiting Pravastatin Sodium (Pravachol) 40 mg PO QHS [facility] Last Admin: 08/15/18 22:30 Dose: 40 mg Sodium Chloride (Sodium Chloride Flush Syringe 10 Ml) 10 ml IV BID [facility] Last Admin: 08/15/18 12:01 Dose: 10 ml Sodium Chloride (Sodium Chloride Flush Syringe 10 Ml) 10 ml IV PRN PRN PRN Reason: LINE FLUSH Last Admin: 08/15/18 10:11 Dose: 10 ml Physical Examination - Physical Exam Narrative exam: Physical Exam: Constitutional: Alert, cooperative. No acute distress Head, Ears, Nose: Normocephalic, atraumatic. External ears, nose normal Eyes: Conjunctivae/corneas clear. No icterus. No ptosis. Neck: Supple, no meningeal signs Oral: dentition fair, no thrush Cardiovascular: S1, S2 normal. Respiratory: Good air entry, clear to auscultation bilaterally GI: Soft, non-tender; bowel sounds normal. No peritoneal signs Musculoskeletal: No pedal edema, no cyanosis. Left arm AVF site with mild warmth and induration, no purulence or fluctuant swelling Skin: No rash or abscess Hem/Lymphatic: No palpable cervical or supraclavicular nodes. No lymphangitis Psych: Mood ok. Affect normal Neurological: Awake, alert, oriented. No gross abnormality - Constitutional Vitals: Vital Signs Temp Pulse Resp BP Pulse Ox 99.9 F H 87 18 127/51 94 08/16/18 08:17 08/16/18 08:17 08/16/18 08:17 08/16/18 08:17 08/16/18 08:17 Temperature -Last 24 Hours Temperature 99.9 F Temperature 102.9 F Temperature 99.2 F Temperature 99.2 F Temperature 98.5 F Results - Labs CBC & Chem 7: 08/16/18 06:36 08/16/18 06:36 Labs: Abnormal lab results 08/16/18 08/16/18 Range/Units 06:36 06:36 RBC 2.43 L (3.65-5.03) M/mm3 Hgb 8.9 L (10.1-14.3) gm/dl Hct 25.5 L (30.3-42.9) % MCV 105 H (79-97) fl MCH 37 H (28-32) pg MCHC 35 H (30-34) % RDW 16.6 H (13.2-15.2) % Chloride 95.6 L (98-107) mmol/L BUN 30 H (7-17) mg/dL Creatinine 5.9 H (0.7-1.2) mg/dL Calcium 8.2 L (8.4-10.2) mg/dL Cultures: 08/14/2018 blood culture: 2 sets negative thus far Assessment and Plan 76-year-old female with ESRD on hemodialysis, multiple myeloma, hypertension, gout, neuropathy and anemia admitted with: #1 SIRS versus sepsis, left AVF site cellulitis: Present on admission given fever and evidence of left arm AV fistula site cellulitis. This could be related to the thrombosis itself, she is now status post mechanical thrombectomy 2 however given another fever of 102F last night, infection remains a concern. Blood cultures so far are negative. We'll continue empiric IV antibiotics, IV Zosyn and restart IV vancomycin post HD. If she spikes another fever greater than 101F, would recommend imaging of the left upper extremity. If she remains afebrile for the next 24 hours, could consider discharging her on oral antibiotics possibly renally adjusted Bactrim. #2 ESRD on hemodialysis via left arm AV fistula: Renally adjust antibiotics. Following. Denies any prior history of AV fistula infection #3 anemia: Likely chronic and secondary to ESRD. Recommendations: -Continue renally adjusted IV Zosyn 2.25 g every 8 hours - Restarted IV vancomycin 500 mg post HD - follow-up blood cultures - monitor fever curve, If she spikes another fever greater than 101F, would recommend imaging of the left upper extremity. If she remains afebrile for the next 24 hours, could consider discharging her on PO antibiotics possibly renally adjusted Bactrim. Plan discussed with Dr. Sudeep Kearney. James Pelaez MD Infectious Disease [place] [facility]
[2018-08-16] MEDS ORDERED: VANCOMYCIN IV SCH (11:00)
[2018-08-16] MEDS ORDERED: NACL 0.9 (PRIMING MACHINE ONLY DIALYSIS) MC ONE (11:17)
[2018-08-16] MEDS: PROCRIT SUB-Q PRN (11:22)
[2018-08-16] MEDS: ZOSYN/NS 2.25 GM/50ML 2.25 GM/50 ML BAG IV SCH ×3 (14:47→22:01)
[2018-08-16] MEDS: LATANOPROST 0.005% OD SCH (19:53)
[2018-08-16] MEDS: SODIUM CHLORIDE FLUSH SYRINGE 10 ML IV SCH ×2 (19:58→22:37)
[2018-08-16] MEDS: PRAVACHOL PO SCH (22:02)
[2018-08-17] MEDS: ZOSYN/NS 2.25 GM/50ML 2.25 GM/50 ML BAG IV SCH (05:23)
[2018-08-17 05:48] LABS: Hematocrit 24.6 % (30.3-42.9); Hemoglobin 8.4 gm/dl (10.1-14.3); Mean Corpuscular HGB Conc 34 % (30-34); Mean Corpuscular Hemoglobin 36 pg (28-32); Mean Corpuscular Volume 106 fl (79-97); Platelet Count 159 K/mm3 (140-440); Red Blood Count 2.33 M/mm3 (3.65-5.03); Red Cell Distribution Width 15.9 % (13.2-15.2)
[2018-08-17 06:10] LABS: Calcium 8.3 mg/dL (8.4-10.2)
--- NOTE | 2018-08-17 07:23 | Progress Note ---
Assessment and Plan 1. Malfunctioning AVF: S/p thrombectomy. 2. ESRD: Continue hemodialysis three times a week, TTS schedule. 3. Fever: Blood culture pending. ID is following. 4. Anemia: Epogen with HD. 5. HTN: BP well controlled. Subjective Date of service: 08/17/18 Principal diagnosis: Malfunctioning dialysis access Interval history: Patient is doing better. Objective - Vital Signs Vital signs: Vital Signs - 12hr 08/16/18 08/16/18 08/16/18 19:29 21:36 22:02 Temperature 98.6 F Pulse Rate 82 Respiratory 24 Rate Blood Pressure 126/47 126/47 O2 Sat by Pulse 95 95 Oximetry 08/17/18 02:50 Temperature 98.2 F Pulse Rate 93 H Respiratory 18 Rate Blood Pressure 131/55 O2 Sat by Pulse 94 Oximetry - General Appearance General appearance: well-developed, well-nourished, appears stated age, other ( no distress) EENT: ATNC, PERRL, mucous membranes moist, hearing intact, vision intact Neck: supple Respiratory: Present: Clear to Ascultation Cardiology: regular, S1S2, no murmurs Gastrointestinal: normoactive bowel sounds, no tenderness, no distended Integumentary: no rash, warm and dry Neurologic: no focal deficit, no asterixis, alert and oriented x3 Musculoskeletal: other (left arm AVF) Psychiatric: mood/affect appropriate, cooperative - Lab 08/17/18 05:32 08/17/18 05:32 Most recent lab results Calcium 8.3 mg/dL (8.4-10.2) L 08/17/18 05:32
--- NOTE | 2018-08-17 08:16 | Progress Note ---
<KIRT GUILLEN - Last Filed: 08/17/18 16:22> Assessment and Plan 76-year-old female with ESRD on hemodialysis, multiple myeloma, hypertension, gout, neuropathy and anemia admitted with: #1 SIRS versus sepsis, left AVF site cellulitis: Present on admission given fever and evidence of left arm AV fistula site cellulitis. This could be related to the thrombosis itself, she is now status post mechanical thrombectomy 2 however given another fever of 102F last night, infection remains a concern. Blood cultures so far are negative. We'll continue empiric IV antibiotics, IV Zosyn and restart IV vancomycin post HD. If she spikes another fever greater than 101F, would recommend imaging of the left upper extremity. If she remains afebrile for the next 24 hours, could consider discharging her on oral antibiotics possibly renally adjusted Bactrim -BC 08/14 -ngtd #2 ESRD on hemodialysis via left arm AV fistula: Renally adjust antibiotics. Following. Denies any prior history of AV fistula infection #3 anemia: Likely chronic and secondary to ESRD. Recommendations: -stop Zosyn, -stop vancomycin -start Bactrim -upon dicharge will take Bactrim DS PO 2 times a day for 10 days ending , prescription on chart.. ID will sign off [facility] M: [phone] O:[phone] Subjective Date of service: 08/17/18 Principal diagnosis: Malfunctioning dialysis access Interval history: Patient was sitting on the side of the bed. Patient stated that she was doing much better today. Patient expressed that her left arm was still sore. Patient also stated that she was ready to go home today. Current Antimicrobials Bactrim DS Previous Antimicrobials Zosyn Vanomycin Objective - Exam Narrative Exam: Constitutional: Alert, cooperative. No acute distress Head, Ears, Nose: Normocephalic, atraumatic. External ears, nose normal Eyes: Conjunctivae/corneas clear. No icterus. No ptosis. Neck: Supple, no meningeal signs Oral: dentition fair, no thrush Cardiovascular: S1, S2 normal. GI: Soft, non-tender; bowel sounds normal. No peritoneal signs Musculoskeletal: No pedal edema, no cyanosis. Left arm AVF site with mild warmth and induration, no purulence or fluctuant swelling Skin: No rash or abscess Hem/Lymphatic: No palpable cervical or supraclavicular nodes. No lymphangitis Psych: Mood ok. Affect normal Neurological: Awake, alert, oriented. No gross abnormality - Constitutional Vitals: Vital Signs Temp Pulse Resp BP Pulse Ox 98.2 F 93 H 18 131/55 94 08/17/18 02:50 08/17/18 02:50 08/17/18 02:50 08/17/18 02:50 08/17/18 02:50 Temperature -Last 24 Hours Temperature 98.2 F Temperature 98.6 F Temperature 98.3 F Temperature 98.2 F Temperature 98.5 F Temperature 99.9 F - Labs CBC & Chem 7: 08/17/18 05:32 08/17/18 05:32 Labs: Abnormal lab results 08/17/18 08/17/18 Range/Units 05:32 05:32 RBC 2.33 L (3.65-5.03) M/mm3 Hgb 8.4 L (10.1-14.3) gm/dl Hct 24.6 L (30.3-42.9) % MCV 106 H (79-97) fl MCH 36 H (28-32) pg RDW 15.9 H (13.2-15.2) % BUN 23 H (7-17) mg/dL Creatinine 5.3 H (0.7-1.2) mg/dL Calcium 8.3 L (8.4-10.2) mg/dL <ÓSCAR COHEN - Last Filed: 08/17/18 17:33> Assessment and Plan Dose was corrected to renally adjusted, Bactrim SS 1 tab BID for 10 days. Objective - Constitutional Vitals: Vital Signs Temp Pulse Resp BP Pulse Ox 98.6 F 68 20 126/61 94 08/17/18 14:54 08/17/18 14:54 08/17/18 14:54 08/17/18 14:54 08/17/18 14:54 Temperature -Last 24 Hours Temperature 98.6 F Temperature 99.7 F Temperature 98.2 F Temperature 98.6 F - Labs CBC & Chem 7: 08/17/18 05:32 08/17/18 05:32 Labs: Abnormal lab results 09/28/18 09/28/18 Range/Units 05:32 05:32 RBC 2.33 L (3.65-5.03) M/mm3 Hgb 8.4 L (10.1-14.3) gm/dl Hct 24.6 L (30.3-42.9) % MCV 106 H (79-97) fl MCH 36 H (28-32) pg RDW 15.9 H (13.2-15.2) % BUN 23 H (7-17) mg/dL Creatinine 5.3 H (0.7-1.2) mg/dL Calcium 8.3 L (8.4-10.2) mg/dL
--- NOTE | 2018-08-17 09:43 | Event Note ---
Date: 08/16/18 Patient s/p declot x 2 she has palpable thrill f/u as outpatient
[2018-08-17] MEDS: NEURONTIN PO SCH (09:48)
[2018-08-17] MEDS: HCTZ PO SCH (09:48)
[2018-08-17] MEDS: PLAVIX PO SCH (09:48)
[2018-08-17] MEDS: SODIUM CHLORIDE FLUSH SYRINGE 10 ML IV SCH (09:49)
[2018-08-17] MEDS: LATANOPROST 0.005% OD SCH (09:49)
[2018-08-17] MEDS: BACTRIM DS PO SCH ×2 (12:26→22:07)
--- NOTE | 2018-08-17 17:48 | Progress Note ---
Assessment and Plan Assessment and plan: Patient is a 77 yo woman with a history of ESRD on HD TTS, MM, HTN, Gout, Neuropathy and AOCD who was admitted directly to hospitalist service at the request of Dr. Ishaan Bacon, Vascular Surgeon. Pt underwent elective outpatient LUE Thrombectomy and venoplasty on 08/14/18 and was found to have evidence of infection/cellulitis. ESRD (end stage renal disease) on dialysis Dialysis as per renal team,avoid nephrotoxic agents Consulted Nephrology SIRS (systemic inflammatory response syndrome)==>SEPSIS was poa, left AVF site re-ordered IV Vancomycin with closely monitoring and consulted ID continue IV Zosyn Acidosis IVF resuscitation, repeat bmp, dialysis as per renal team. Thrombosis of dialysis vascular access VAscular surgery consulted, S/P trhombectomy AOCD monitor h/h closely Thrombocytopenia follow plt counts closely, DVT prophylaxis SCD to BLE while in bed on plavix anticipate d/c in AM per Vascular if afebrile History Interval history: Patient was seen and examined. Follow-up on current diagnosis of infected HD access site. Overnight eventful with fevers. Patient denies any chest pain, shortness breath, nausea/vomiting or severe headaches. Imaging, nursing note, chart, labs and old chart reviewed. No Labs were ordered for today. Discussed with patient. Hospitalist Physical - Physical exam Narrative exam: GEN: WDWN, NAD, Awake, Alert, Orientated HEENT: NCAT, EOMI, PERRL, OP Clear NECK: supple, no adenopathy, no thyromegaly, no JVD CVS/HEART: RRR, normal S1S2, pulses present bilaterally CHEST/LUNGS: CTA B, Symmetrical chest expansion, good air entry bilaterally GI/Abdomen: soft, NTND, good bowel sounds, no guarding or rebound /Bladder: no suprapubic tenderness, no CVA or paraspinal tenderness EXT/Skin: left upper arm swollen MSK: FROM x 4 Neuro: CN 2-12 grossly intact, no new focal deficits Psych: calm - Constitutional Vitals: Temp Pulse Resp BP Pulse Ox 98.6 F 68 20 126/61 94 08/17/18 14:54 08/17/18 14:54 08/17/18 14:54 08/17/18 14:54 08/17/18 14:54 General appearance: Absent: mild distress, obese Results - Labs CBC & Chem 7: 08/17/18 05:32 08/17/18 05:32 Labs: Laboratory Last Values WBC 7.2 K/mm3 (4.5-11.0) 08/17/18 05:32 RBC 2.33 M/mm3 (3.65-5.03) L 08/17/18 05:32 Hgb 8.4 gm/dl (10.1-14.3) L 08/17/18 05:32 Hct 24.6 % (30.3-42.9) L 08/17/18 05:32 MCV 106 fl (79-97) H 08/17/18 05:32 MCH 36 pg (28-32) H 08/17/18 05:32 MCHC 34 % (30-34) 08/17/18 05:32 RDW 15.9 % (13.2-15.2) H 08/17/18 05:32 Plt Count 159 K/mm3 (140-440) 08/17/18 05:32 Lymph % (Auto) 6.5 % (13.4-35.0) L 08/14/18 19:44 [place] % (Auto) 9.3 % (0.0-7.3) H 08/14/18 19:44 Eos % (Auto) 0.3 % (0.0-4.3) 08/14/18 19:44 Baso % (Auto) 0.1 % (0.0-1.8) 08/14/18 19:44 Lymph # 0.6 K/mm3 (1.2-5.4) L 08/14/18 19:44 [place] # 0.8 K/mm3 (0.0-0.8) 08/14/18 19:44 Eos # 0.0 K/mm3 (0.0-0.4) 08/14/18 19:44 Baso # 0.0 K/mm3 (0.0-0.1) 08/14/18 19:44 Seg Neutrophils % 83.8 % (40.0-70.0) H 08/14/18 19:44 Seg Neutrophils # 7.6 K/mm3 (1.8-7.7) 08/14/18 19:44 Sodium 141 mmol/L (137-145) 08/17/18 05:32 Potassium 3.8 mmol/L (3.6-5.0) 08/17/18 05:32 Chloride 99.6 mmol/L (98-107) 08/17/18 05:32 Carbon Dioxide 27 mmol/L (22-30) 08/17/18 05:32 Anion Gap 18 mmol/L 08/17/18 05:32 BUN 23 mg/dL (7-17) H 08/17/18 05:32 Creatinine 5.3 mg/dL (0.7-1.2) H 08/17/18 05:32 Estimated GFR 10 ml/min 08/17/18 05:32 BUN/Creatinine Ratio 4 % 08/17/18 05:32 Glucose 91 mg/dL (65-100) 08/17/18 05:32 Lactic Acid 1.00 mmol/L (0.7-2.0) 08/14/18 22:30 Calcium 8.3 mg/dL (8.4-10.2) L 08/17/18 05:32 Total Bilirubin 0.20 mg/dL (0.1-1.2) 08/14/18 19:44 AST 16 units/L (5-40) 08/14/18 19:44 ALT 8 units/L (7-56) 08/14/18 19:44 Alkaline Phosphatase 62 units/L (35-129) 08/14/18 19:44 Total Protein 6.2 g/dL (6.3-8.2) L 08/14/18 19:44 Albumin 3.6 g/dL (3.9-5) L 08/14/18 19:44 Albumin/Globulin Ratio 1.4 % 08/14/18 19:44 Random Vancomycin 21.7 ug/mL (0-40.0) 08/17/18 05:32
[2018-08-17] MEDS ORDERED: BACTRIM DS PO SCH (22:00)
[2018-08-17] MEDS: PRAVACHOL PO SCH (22:06)
[2018-08-17] MEDS: CARDURA PO SCH (22:07)
--- NOTE | 2018-08-18 07:08 | Progress Note ---
Assessment and Plan 1. Malfunctioning AVF: S/p thrombectomy. 2. ESRD: Continue hemodialysis three times a week, TTS schedule. 3. Fever: Blood culture negative so far. 4. Anemia: Epogen with HD. 5. HTN: BP well controlled. Subjective Date of service: 08/18/18 Principal diagnosis: Malfunctioning dialysis access Interval history: Patient is doing better. Objective - Vital Signs Vital signs: Vital Signs - 12hr 08/17/18 08/17/18 08/18/18 20:54 22:07 02:19 Temperature 97.8 F 99.7 F H Pulse Rate 68 Respiratory 18 18 Rate Blood Pressure 124/62 123/61 137/58 - General Appearance General appearance: well-developed, well-nourished, appears stated age, other ( not in distress) EENT: ATNC, PERRL, mucous membranes moist, hearing intact, vision intact Neck: supple Respiratory: Present: Clear to Ascultation Cardiology: regular, S1S2, no murmurs Gastrointestinal: normoactive bowel sounds, no tenderness, no distended Integumentary: no rash, warm and dry Neurologic: no focal deficit, no asterixis, alert and oriented x3 Musculoskeletal: other (left arm AVF) Psychiatric: cooperative - Lab 08/17/18 05:32 08/17/18 05:32 Most recent lab results Calcium 8.3 mg/dL (8.4-10.2) L 08/17/18 05:32
[2018-08-18] MEDS: LATANOPROST 0.005% OD SCH (09:59)
[2018-08-18] MEDS: NEURONTIN PO SCH (10:00)
[2018-08-18] MEDS: HCTZ PO SCH (10:00)
[2018-08-18] MEDS: BACTRIM DS PO SCH (10:00)
[2018-08-18] MEDS: PLAVIX PO SCH (10:00)
[2018-08-18] MEDS ORDERED: NACL 0.9 (PRIMING MACHINE ONLY DIALYSIS) MC ONE (13:55)
[2018-08-18] MEDS: PROCRIT SUB-Q PRN (13:58)
--- NOTE | 2018-08-18 13:59 | Discharge Summary ---
Providers - Providers Date of Admission: 08/14/18 16:01 Date of discharge: 08/18/18 Attending physician: ISHAAN WOODRUFF 08/15/18 08:11 Consult to Physician [CONS] Routine Comment: CONSULT WAS CALLED TO /SIRISHA Consulting Provider: CORINNE STUBBS Physician Instructions: [phone] Reason For Exam: HD site infection 08/15/18 10:07 Consult to Physician [CONS] Routine Comment: Consulting Provider: AIDE ORTIZ Physician Instructions: patient known to him Reason For Exam: esrd Primary care physician: EMERSON HART Hospitalization Condition: Stable Hospital course: Patient is a 77 yo woman with a history of ESRD on HD TTS, MM, HTN, Gout, Neuropathy and AOCD who was admitted directly to hospitalist service at the request of Dr. Ishaan Woodruff, Vascular Surgeon. Pt underwent elective outpatient LUE Thrombectomy and venoplasty on 08/14/18. She was found to have evidence of infection/cellulitis. She underwnet declot x 2 per Vascular surgery. ESRD (end stage renal disease) on dialysis SEPSIS was poa, left AVF site infection, ID recommend Bactrim SS bid x 10 days HD access malfunction/Thrombosis of dialysis vascular access s/p declot x 2 Metabolic Acidosis AOCD Thrombocytopenia Disposition: DC- TO HOME OR SELFCARE Time spent for discharge: 34 minutes Core Measure Documentation - Palliative Care Palliative Care/ Comfort Measures: Not Applicable - Core Measures Any of the following diagnoses?: none - VTE Discharge Requirements Deep Vein Thrombosis/Pulmonary Embolism Present on Admission: No Has pt received <5 days of overlap therapy or INR<2.0: No Anticoagulant overlap therapy prescribed at discharge: No Contraindication No Overlap Therapy order at DC: Not Indicated Exam - Physical Exam Narrative exam: GEN: WDWN, NAD, Awake, Alert, Orientated HEENT: NCAT, EOMI, PERRL, OP Clear NECK: supple, no adenopathy, no thyromegaly, no JVD CVS/HEART: RRR, normal S1S2, pulses present bilaterally CHEST/LUNGS: CTA B, Symmetrical chest expansion, good air entry bilaterally GI/Abdomen: soft, NTND, good bowel sounds, no guarding or rebound /Bladder: no suprapubic tenderness, no CVA or paraspinal tenderness EXT/Skin: left upper arm swollen MSK: FROM x 4 Neuro: CN 2-12 grossly intact, no new focal deficits Psych: calm - Constitutional Vitals: Temp Pulse Resp BP Pulse Ox 97.2 F L 66 18 128/62 96 08/18/18 10:55 08/18/18 13:00 08/18/18 10:55 08/18/18 13:00 08/18/18 07:44 Plan Activity: other (no strenous activity until cleared by pcp) Diet: renal Special Instructions: no heavy lifting Follow up with: EMERSON HART MD [Primary Care Provider] - 7 Days AIDE ORTIZ MD [Staff Physician] - 7 Days CORINNE STUBBS MD [Staff Physician] - 7 Days ISHAAN WOODRUFF MD [Staff Physician] - 7 Days Prescriptions: Ondansetron [Zofran TAB] 4 mg PO PRN PRN #15 tablet PRN Reason: Nausea Sulfamethoxazole/Trimethoprim [Bactrim 400-80 mg Tablet] 1 each PO BID #20 tablet
[2018-08-18 15:13] VITALS: BP 128/82
== END 2018-08-18 15:30 | disposition home or self-care (01) | DRG 252 ==
LOC: CATHLABREC 12:07 → 2B-ACE 16:01
PROVIDERS: ADMIT Internal Medicine; ATTEND Surgery Vascular Surgery
PROC: B51W1ZZ Fluoroscopy of Dialysis Shunt/Fistula using Low Osmolar Contrast (ICD-10-PCS; 2018-08-14)
PROC: 3E05317 Introduction of Other Thrombolytic into Peripheral Artery, Percutaneous Approach (ICD-10-PCS; 2018-08-14)
PROC: 05CF3ZZ Extirpation of Matter from Left Cephalic Vein, Percutaneous Approach (ICD-10-PCS; 2018-08-14)
PROC: 05763DZ Dilation of Left Subclavian Vein with Intraluminal Device, Percutaneous Approach (ICD-10-PCS; principal; 2018-08-15)
PROC: 057F3DZ Dilation of Left Cephalic Vein with Intraluminal Device, Percutaneous Approach (ICD-10-PCS; 2018-08-15)
PROC: 05CF3ZZ Extirpation of Matter from Left Cephalic Vein, Percutaneous Approach (ICD-10-PCS; 2018-08-15)
PROC: 5A1D70Z Performance of Urinary Filtration, Intermittent, Less than 6 Hours Per Day (ICD-10-PCS; 2018-08-15)
PROC: 5A1D70Z Performance of Urinary Filtration, Intermittent, Less than 6 Hours Per Day (ICD-10-PCS; 2018-08-16)
PROC: 5A1D70Z Performance of Urinary Filtration, Intermittent, Less than 6 Hours Per Day (ICD-10-PCS; 2018-08-18)
DX: T82.7XXA Infection and inflammatory reaction due to other cardiac and vascular devices, implants and grafts, initial encounter (principal); A41.9 Sepsis, unspecified organism; N18.6 End stage renal disease; I12.0 Hypertensive chronic kidney disease with stage 5 chronic kidney disease or end stage renal disease; C90.00 Multiple myeloma not having achieved remission; L03.114 Cellulitis of left upper limb; T82.856A Stenosis of peripheral vascular stent, initial encounter; T82.868A Thrombosis due to vascular prosthetic devices, implants and grafts, initial encounter; E11.22 Type 2 diabetes mellitus with diabetic chronic kidney disease; E11.40 Type 2 diabetes mellitus with diabetic neuropathy, unspecified; D69.6 Thrombocytopenia, unspecified; E78.5 Hyperlipidemia, unspecified; Y83.8 Other surgical procedures as the cause of abnormal reaction of the patient, or of later complication, without mention of misadventure at the time of the procedure; Y92.89 Other specified places as the place of occurrence of the external cause; M10.9 Gout, unspecified; D63.8 Anemia in other chronic diseases classified elsewhere; Z83.3 Family history of diabetes mellitus; Z82.49 Family history of ischemic heart disease and other diseases of the circulatory system
CPT/HCPCS: 36415; 36905; 36906; 76937; 80048; 80053; 80202; 82140; 84132; 85025; 85027; 87040; A9270-GY; C1725; C1751; C1757; C1769; C1874; C1894; J0360; J0690; J0885; J1644; J2250; J2543; J2997; J3010; J3370; J7030; J7040; J7050; Q9967

== ENCOUNTER 2019-03-13 11:31 | Outpatient (CLI) | payer MEDICARE ==
--- NOTE | 2019-03-13 12:15 | Cat Scan Report ---
CT HEAD WITHOUT CONTRAST: HISTORY: Essential hypertension, dizziness, giddiness. TECHNIQUE: Sequential CT images without contrast. FINDINGS: Images obtained show bilateral prominence of the sulci and ventricles. There are no abnormal intra- or extra-axial blood or fluid collections. There are no focal masses or evidence of mass effect. The aguirre white matter differentiation appears within normal limits. Regions of periventricular decreased attenuation are consistent with microangiopathic ischemic disease. The posterior fossa structures including the fourth ventricle, cerebellum, and brainstem appear normal. IMPRESSION: Evidence of atrophy and microangiopathic ischemic disease. No acute intracranial process noted.
== END 2019-03-13 11:32 | disposition home or self-care (01) ==
LOC: CT 11:31
PROVIDERS: ATTEND Internal Medicine Cardiovascular Disease
DX: I67.82 Cerebral ischemia (principal); I12.0 Hypertensive chronic kidney disease with stage 5 chronic kidney disease or end stage renal disease; N18.6 End stage renal disease; M19.90 Unspecified osteoarthritis, unspecified site; E78.00 Pure hypercholesterolemia, unspecified; I73.9 Peripheral vascular disease, unspecified; F17.200 Nicotine dependence, unspecified, uncomplicated; Z86.2 Personal history of diseases of the blood and blood-forming organs and certain disorders involving the immune mechanism; Z90.710 Acquired absence of both cervix and uterus
CPT/HCPCS: 70450

== ENCOUNTER 2019-03-16 13:17 | Emergency (ER) | payer MEDICARE ==
--- NOTE | 2019-03-16 15:28 | Emergency Department Report ---
ED General Adult HPI - General Chief complaint: Medical Clearance Stated complaint: BLEEDING FROM DIALYSIS Time Seen by Provider: 03/16/19 14:58 Source: patient, family Mode of arrival: Ambulatory Limitations: No Limitations - History of Present Illness Initial comments: Patient is 78-year-old female with history of end-stage renal disease on hemodialysis. Patient brought to the emergency room from dialysis center after she started bleeding from her left arm fistula. Patient did not receive any dialysis today. Pressure dressing applied at the dialysis center. Bleeding stopped. Patient denied any shortness of breath, chest pain, weakness numbness or tingling sensation. Patient last dialysis was Monday and patient is compliant with her dialysis. - Related Data Home Medications Medication Instructions Recorded Confirmed Last Taken Simvastatin 20 mg PO DAILY 09/15/14 08/14/18 08/14/18 07:00 20mg hydroCHLOROthiazide 25 mg PO DAILY 08/15/16 08/14/18 08/14/18 07:00 [Hydrochlorothiazide] 25mg Gabapentin [Neurontin] 2 tab PO DAILY 06/18/18 08/14/18 08/14/18 07:00 Latanoprost 0.005% 1 drop INTRAOCULA DAILY 06/18/18 08/14/18 08/13/18 1 drop Previous Rx's Medication Instructions Recorded Last Taken Type Doxazosin Mesylate [Cardura] 2 mg PO QHS #30 tablet 04/01/17 08/14/18 07:00 Rx 2mg Clopidogrel Bisulfate [Plavix] 75 mg PO DAILY #90 tablet 06/18/18 08/14/18 Rx 75 mg Acetaminophen [Acetaminophen TAB] 650 mg PO Q4H PRN #15 tablet 08/18/18 Unknown Rx Epoetin Ulises 10,000 Unit [Procrit] 10,000 unit SUB-Q VALARIE PRN #1 vial 08/18/18 Unknown Rx Ondansetron [Zofran TAB] 4 mg PO PRN PRN #15 tablet 08/18/18 Unknown Rx Sulfamethoxazole/Trimethoprim 1 each PO BID #20 tablet 08/18/18 Unknown Rx [Bactrim 400-80 mg Tablet] Allergies Allergy/AdvReac Type Severity Reaction Status Date / Time No Known Allergies Allergy Verified 03/16/19 13:22 ED Review of Systems ROS: Stated complaint: BLEEDING FROM DIALYSIS Other details as noted in HPI Comment: All other systems reviewed and negative Constitutional: denies: chills, fever Respiratory: denies: cough, orthopnea, shortness of breath, SOB with exertion, SOB at rest, wheezing Cardiovascular: denies: chest pain, palpitations Gastrointestinal: denies: abdominal pain, nausea, vomiting, diarrhea, constipation, hematemesis, melena, hematochezia Musculoskeletal: denies: back pain Neurological: denies: headache, weakness, numbness, paresthesias, confusion ED Past Medical Hx - Past Medical History Hx Hypertension: Yes Hx Heart Attack/AMI: No Hx Congestive Heart Failure: No Hx Diabetes: No Hx Deep Vein Thrombosis: No Hx Pulmonary Embolism: No Hx Liver Disease: No Hx Renal Disease: Yes Hx Arthritis: Yes (Knees) Hx Kidney Stones: No Hx Asthma: No Hx COPD: No Hx Tuberculosis: No Hx HIV: No Additional medical history: Gout, Cholesterol - Surgical History Hx Coronary Stent: No Hx Pacemaker: No Hx Internal Defibrillator: No Additional Surgical History: Hysterectomy - Social History Smoking Status: Current Every Day Smoker Substance Use Type: None - Medications Home Medications: Home Medications Medication Instructions Recorded Confirmed Last Taken Type Simvastatin 20 mg PO DAILY 09/15/14 08/14/18 08/14/18 07:00 History 20mg hydroCHLOROthiazide 25 mg PO DAILY 08/15/16 08/14/18 08/14/18 07:00 History [Hydrochlorothiazide] 25mg Doxazosin Mesylate [Cardura] 2 mg PO QHS #30 tablet 04/01/17 08/14/18 08/14/18 07:00 Rx 2mg Clopidogrel Bisulfate [Plavix] 75 mg PO DAILY #90 tablet 06/18/18 08/14/18 08/14/18 Rx 75 mg Gabapentin [Neurontin] 2 tab PO DAILY 06/18/18 08/14/18 08/14/18 07:00 History Latanoprost 0.005% 1 drop INTRAOCULA DAILY 06/18/18 08/14/18 08/13/18 History 1 drop Acetaminophen [Acetaminophen TAB] 650 mg PO Q4H PRN #15 tablet 08/18/18 Unknown Rx Epoetin Ulises 10,000 Unit [Procrit] 10,000 unit SUB-Q VALARIE PRN #1 vial 08/18/18 Unknown Rx Ondansetron [Zofran TAB] 4 mg PO PRN PRN #15 tablet 08/18/18 Unknown Rx Sulfamethoxazole/Trimethoprim 1 each PO BID #20 tablet 08/18/18 Unknown Rx [Bactrim 400-80 mg Tablet] ED Physical Exam - General Limitations: No Limitations General appearance: alert, in no apparent distress - Head Head exam: Present: atraumatic, normocephalic, normal inspection - Eye Eye exam: Present: normal appearance, PERRL - ENT ENT exam: Present: normal exam, normal orophraynx, mucous membranes moist - Neck Neck exam: Present: normal inspection, full ROM. Absent: tenderness, meningismus - Respiratory Respiratory exam: Present: normal lung sounds bilaterally. Absent: respiratory distress, wheezes, rales, rhonchi, stridor, chest wall tenderness, accessory muscle use, decreased breath sounds, prolonged expiratory - Cardiovascular Cardiovascular Exam: Present: regular rate, normal rhythm, normal heart sounds - GI/Abdominal GI/Abdominal exam: Present: soft, normal bowel sounds. Absent: distended, tenderness, guarding, rebound, rigid, organomegaly, mass, bruit, pulsatile mass, hernia - Extremities Exam Extremities exam: Present: other (left arm fistula site examined and no active bleeding after removal of the pressure dressing.) - Back Exam Back exam: Present: normal inspection, full ROM - Neurological Exam Neurological exam: Present: alert, oriented X3, CN II-XII intact, normal gait, reflexes normal - Skin Skin exam: Present: warm, intact, normal color ED Course Vital Signs 03/16/19 03/16/19 13:23 15:28 Temperature 97.8 F Pulse Rate 68 67 Respiratory 16 16 Rate Blood Pressure 198/74 Blood Pressure 158/99 [Right] O2 Sat by Pulse 100 100 Oximetry ED Medical Decision Making - Lab Data Result diagrams: 03/16/19 15:44 03/16/19 15:44 - Medical Decision Making Patient is 78-year-old female with history of end-stage renal disease on hemodialysis. Patient brought to the emergency room from dialysis center after she started bleeding from her left arm fistula. Patient did not receive any dialysis today. Pressure dressing applied at the dialysis center. Bleeding stopped. Patient denied any shortness of breath, chest pain, weakness numbness or tingling sensation. Patient last dialysis was Monday and patient is compliant with her dialysis. Patient observed in the ER. No bleeding observed from the fistula. Labs reviewed and is unremarkable with a potassium of 3.6. Blood pressure is stable patient denied any shortness of breath. I discussed the patient is Dr. Ortiz, he advised patient can go home and he will follow-up with the patient for dialysis and arrangement for vascular consultation. Discharged home in a stable clinical situation. Critical care attestation.: If time is entered above; I have spent that time in minutes in the direct care of this critically ill patient, excluding procedure time. ED Disposition Clinical Impression: ESRD (end stage renal disease) on dialysis, Complication of vascular access for dialysis Disposition: DC- TO HOME OR SELFCARE Is pt being admited?: No Condition: Stable Instructions: Chronic Kidney Disease (ED) Referrals: EMERSON HART MD [Primary Care Provider] - 3-5 Days AIDE ORTIZ MD [Staff Physician] - 3-5 Days
[2019-03-16 15:29] VITALS: BP 158/99
[2019-03-16 16:18] LABS: Basophils % (Auto) 0.4 % (0.0-1.8); Eosinophils # (Auto) 0.1 K/mm3 (0.0-0.4); Eosinophils % (Auto) 3.3 % (0.0-4.3); Hematocrit 35.1 % (30.3-42.9); Hemoglobin 11.8 gm/dl (10.1-14.3); Lymphocytes # (Auto) 1.2 K/mm3 (1.2-5.4); Lymphocytes % (Auto) 33.7 % (13.4-35.0); Mean Corpuscular HGB Conc 34 % (30-34); Mean Corpuscular Volume 105 fl (79-97); Monocytes # (Auto) 0.3 K/mm3 (0.0-0.8); Monocytes % (Auto) 9.4 % (0.0-7.3); Red Blood Count 3.33 M/mm3 (3.65-5.03); Red Cell Distribution Width 13.9 % (13.2-15.2)
[2019-03-16 16:29] LABS: INR 0.9 (0.87-1.13)
[2019-03-16 16:30] LABS: Partial Thromboplastin Time 27.9 Sec. (24.2-36.6)
[2019-03-16 17:19] LABS: Platelet Count 90 K/mm3 (140-440)
== END 2019-03-16 17:01 | disposition home or self-care (01) ==
LOC: ED 13:17
DX: I12.0 Hypertensive chronic kidney disease with stage 5 chronic kidney disease or end stage renal disease (principal); N18.6 End stage renal disease; Z99.2 Dependence on renal dialysis; M19.90 Unspecified osteoarthritis, unspecified site; E78.00 Pure hypercholesterolemia, unspecified; M10.9 Gout, unspecified; F17.200 Nicotine dependence, unspecified, uncomplicated; Z90.710 Acquired absence of both cervix and uterus; Z79.899 Other long term (current) drug therapy
CPT/HCPCS: 36415; 80048; 85025; 85610; 85730; 99283

== ENCOUNTER 2019-08-26 12:47 | Emergency (ER) | payer MEDICARE ==
--- NOTE | 2019-08-26 13:14 | Emergency Department Report ---
Blank Doc - Documentation Documentation: 78-year-old female that presents with dizziness, weakness, and low blood press ure. Also has bilateral feet pains. Was sent by PCP. This initial assessment/diagnostic orders/clinical plan/treatment(s) is/are subject to change based on patient's health status, clinical progression and re- assessment by fellow clinical providers in the ED. Further treatment and workup at subsequent clinical providers discretion. Patient/guardians urged not to elope from the ED as their condition may be serious if not clinically assessed and managed. Initial orders include: 1- Patient sent to MAIN ED for further evaluation and treatment 2- EKG 3- labs 4- UA
[2019-08-26 13:56] LABS: Basophils % (Auto) 0.8 % (0.0-1.8); Eosinophils # (Auto) 0.2 K/mm3 (0.0-0.4); Eosinophils % (Auto) 3.4 % (0.0-4.3); Hematocrit 34.6 % (30.3-42.9); Hemoglobin 11.9 gm/dl (10.1-14.3); Lymphocytes # (Auto) 1.6 K/mm3 (1.2-5.4); Lymphocytes % (Auto) 26.5 % (13.4-35.0); Mean Corpuscular HGB Conc 34 % (30-34); Mean Corpuscular Volume 105 fl (79-97); Monocytes # (Auto) 0.6 K/mm3 (0.0-0.8); Monocytes % (Auto) 10.6 % (0.0-7.3); Platelet Count 155 K/mm3 (140-440); Red Blood Count 3.31 M/mm3 (3.65-5.03); Red Cell Distribution Width 15.1 % (13.2-15.2)
[2019-08-26 14:04] LABS: INR 0.97 (0.87-1.13)
[2019-08-26 14:05] LABS: Partial Thromboplastin Time 30.6 Sec. (24.2-36.6)
[2019-08-26 14:14] LABS: BUN/Creatinine Ratio 4; Blood Urea Nitrogen 30 mg/dL (7-17); Hemolysis Index 102
--- NOTE | 2019-08-26 14:20 | XRay Report ---
CHEST 1 VIEW INDICATION: Weakness. COMPARISON: 03/24/2018 FINDINGS: Support devices: None. Heart: Stable cardiac enlargement. Pulmonary vasculature: Normal. Lungs/Pleura: Normally expanded and clear lungs. No pleural effusion. Additional findings: Degenerative change in the spine. IMPRESSION: Cardiomegaly but no CHF. Signer Name: Jerson Hendrix MD Signed: 08/26/2019 2:16 PM Workstation Name: [id number]
[2019-08-26 14:23] LABS: Alanine Aminotransferase 11 units/L (7-56)
[2019-08-26] MEDS ORDERED: MECLIZINE 25 MG TAB PO ONE (14:27)
--- NOTE | 2019-08-26 14:48 | Emergency Department Report ---
ED General Adult HPI - General Chief complaint: Weakness Stated complaint: MEDICAL CLEARANCE/HYPOTENSION Time Seen by Provider: 08/26/19 13:12 Source: patient, family Mode of arrival: Wheelchair Limitations: No Limitations - History of Present Illness Initial comments: pt is a 78-year-old female who presents to emergency room with complaints of dizziness that began a couple days ago. Has associated intermittent HURTADO, fatigue, feeling like she is off balance. She does feel like the room is spinning. pt states she only has dizziness when she gets up and walks around. Denies it getting worse when she lays flat. she was seen today at her primary care clinic and had pressure of 90/44 and the primary care doctor was concerned and sent her to the emergency room for evaluation of her fatigue and blood pressure reading while in the clinic. pt has a pmhx of HTN and takes hydralazine. - Related Data Home Medications Medication Instructions Recorded Confirmed Last Taken Simvastatin 20 mg PO DAILY 09/15/14 08/14/18 08/14/18 07:00 20 mg hydroCHLOROthiazide 25 mg PO DAILY 08/15/16 08/14/18 08/14/18 07:00 [Hydrochlorothiazide] 25 mg Gabapentin [Neurontin] 2 tab PO DAILY 06/18/18 08/14/18 08/14/18 07:00 Latanoprost 0.005% 1 drop INTRAOCULA DAILY 06/18/18 08/14/18 08/13/18 1 drop Previous Rx's Medication Instructions Recorded Last Taken Type Doxazosin Mesylate [Cardura] 2 mg PO QHS #30 tablet 04/01/17 08/14/18 07:00 Rx 2 mg Clopidogrel Bisulfate [Plavix] 75 mg PO DAILY #90 tablet 06/18/18 08/14/18 Rx 75 mg Acetaminophen [Acetaminophen TAB] 650 mg PO Q4H PRN #15 tablet 08/18/18 Unknown Rx Epoetin Ulises 10,000 Unit [Procrit] 10,000 unit SUB-Q VALARIE PRN #1 vial 08/18/18 Unknown Rx Ondansetron [Zofran TAB] 4 mg PO PRN PRN #15 tablet 08/18/18 Unknown Rx Sulfamethoxazole/Trimethoprim 1 each PO BID #20 tablet 08/18/18 Unknown Rx [Bactrim 400-80 mg Tablet] Allergies Allergy/AdvReac Type Severity Reaction Status Date / Time No Known Allergies Allergy Verified 03/16/19 13:22 ED Review of Systems ROS: Stated complaint: MEDICAL CLEARANCE/HYPOTENSION Other details as noted in HPI Comment: All other systems reviewed and negative ED Past Medical Hx - Past Medical History Previous Medical History?: Yes Hx Hypertension: Yes Hx Heart Attack/AMI: No Hx Congestive Heart Failure: No Hx Diabetes: No Hx Deep Vein Thrombosis: No Hx Pulmonary Embolism: No Hx Liver Disease: No Hx Renal Disease: Yes (T, , Monday) Hx Arthritis: Yes (Knees) Hx Kidney Stones: No Hx Asthma: No Hx COPD: No Hx Tuberculosis: No Hx HIV: No Additional medical history: Gout, Cholesterol - Surgical History Past Surgical History?: Yes Hx Coronary Stent: No Hx Pacemaker: No Hx Internal Defibrillator: No Additional Surgical History: Hysterectomy, MARIYA fistula - Social History Smoking Status: Never Smoker Substance Use Type: None - Medications Home Medications: Home Medications Medication Instructions Recorded Confirmed Last Taken Type Simvastatin 20 mg PO DAILY 09/15/14 08/14/18 08/14/18 07:00 History 20 mg hydroCHLOROthiazide 25 mg PO DAILY 08/15/16 08/14/18 08/14/18 07:00 History [Hydrochlorothiazide] 25 mg Doxazosin Mesylate [Cardura] 2 mg PO QHS #30 tablet 04/01/17 08/14/18 08/14/18 07:00 Rx 2 mg Clopidogrel Bisulfate [Plavix] 75 mg PO DAILY #90 tablet 06/18/18 08/14/18 08/14/18 Rx 75 mg Gabapentin [Neurontin] 2 tab PO DAILY 06/18/18 08/14/18 08/14/18 07:00 History Latanoprost 0.005% 1 drop INTRAOCULA DAILY 06/18/18 08/14/18 08/13/18 History 1 drop Acetaminophen [Acetaminophen TAB] 650 mg PO Q4H PRN #15 tablet 08/18/18 Unknown Rx Epoetin Ulises 10,000 Unit [Procrit] 10,000 unit SUB-Q VALARIE PRN #1 vial 08/18/18 Unknown Rx Ondansetron [Zofran TAB] 4 mg PO PRN PRN #15 tablet 08/18/18 Unknown Rx Sulfamethoxazole/Trimethoprim 1 each PO BID #20 tablet 08/18/18 Unknown Rx [Bactrim 400-80 mg Tablet] ED Physical Exam - General Limitations: No Limitations General appearance: alert, in no apparent distress - Head Head exam: Present: atraumatic, normocephalic - Eye Eye exam: Present: normal appearance - ENT ENT exam: Present: mucous membranes moist - Respiratory Respiratory exam: Present: normal lung sounds bilaterally. Absent: respiratory distress, wheezes, rales, rhonchi, stridor, chest wall tenderness, accessory muscle use, decreased breath sounds, prolonged expiratory - Cardiovascular Cardiovascular Exam: Present: regular rate, normal rhythm, normal heart sounds, other (left AV fistula with good palpable thrill, no signs of infection). Absent: systolic murmur, diastolic murmur, rubs, gallop - GI/Abdominal GI/Abdominal exam: Present: soft, normal bowel sounds. Absent: distended, tenderness, guarding, rebound, rigid - Neurological Exam Neurological exam: Present: alert, oriented X3, CN II-XII intact, normal gait, other (normal finger to nose, normal heel to sneed, 5/5 strength in the BUE/BLE, sensation intact throughout) - Psychiatric Psychiatric exam: Present: normal affect, normal mood - Skin Skin exam: Present: warm, dry, intact ED Course Vital Signs 08/26/19 08/26/19 08/26/19 12:51 14:31 14:45 Temperature 98.1 F Pulse Rate 59 L 56 L 57 L Respiratory 16 12 10 L Rate Blood Pressure 112/43 92/44 162/58 Blood Pressure [Right] O2 Sat by Pulse 97 100 98 Oximetry 08/26/19 08/26/19 08/26/19 15:23 15:31 15:45 Temperature Pulse Rate 183 H 79 63 Respiratory 12 13 Rate Blood Pressure 178/72 178/72 178/72 Blood Pressure [Right] O2 Sat by Pulse Oximetry 08/26/19 08/26/19 08/26/19 15:59 16:00 16:15 Temperature Pulse Rate 61 62 62 Respiratory 13 14 13 Rate Blood Pressure 185/74 178/72 Blood Pressure 178/74 [Right] O2 Sat by Pulse 97 98 Oximetry 08/26/19 08/26/19 08/26/19 16:30 16:45 17:01 Temperature Pulse Rate 65 Respiratory 18 Rate Blood Pressure 172/62 156/65 156/65 Blood Pressure [Right] O2 Sat by Pulse 97 98 Oximetry 08/26/19 17:15 Temperature Pulse Rate Respiratory Rate Blood Pressure 156/65 Blood Pressure [Right] O2 Sat by Pulse 90 Oximetry ED Medical Decision Making - Lab Data Result diagrams: 08/26/19 13:34 08/26/19 13:34 Lab Results 08/26/19 08/26/19 08/26/19 Range/Units 13:34 13:34 13:34 WBC 6.0 (4.5-11.0) K/mm3 RBC 3.31 L (3.65-5.03) M/mm3 Hgb 11.9 (10.1-14.3) gm/dl Hct 34.6 (30.3-42.9) % MCV 105 H (79-97) fl MCH 36 H (28-32) pg MCHC 34 (30-34) % RDW 15.1 (13.2-15.2) % Plt Count 155 (140-440) K/mm3 Lymph % (Auto) 26.5 (13.4-35.0) % [place] % (Auto) 10.6 H (0.0-7.3) % Eos % (Auto) 3.4 (0.0-4.3) % Baso % (Auto) 0.8 (0.0-1.8) % Lymph # 1.6 (1.2-5.4) K/mm3 [place] # 0.6 (0.0-0.8) K/mm3 Eos # 0.2 (0.0-0.4) K/mm3 Baso # 0.0 (0.0-0.1) K/mm3 Seg Neutrophils % 58.7 (40.0-70.0) % Seg Neutrophils # 3.5 (1.8-7.7) K/mm3 PT 12.6 (12.2-14.9) Sec. INR 0.97 (0.87-1.13) APTT 30.6 (24.2-36.6) Sec. Sodium 134 L (137-145) mmol/L Potassium 4.3 (3.6-5.0) mmol/L Chloride 89.9 L (98-107) mmol/L Carbon Dioxide 27 (22-30) mmol/L Anion Gap 21 mmol/L BUN 30 H (7-17) mg/dL Creatinine 7.2 H (0.7-1.2) mg/dL Estimated GFR 7 ml/min BUN/Creatinine Ratio 4 % Glucose 93 (65-100) mg/dL Calcium 9.0 (8.4-10.2) mg/dL Phosphorus (2.5-4.5) mg/dL Magnesium (1.7-2.3) mg/dL Total Bilirubin 0.30 (0.1-1.2) mg/dL AST 23 (5-40) units/L ALT 11 (7-56) units/L Alkaline Phosphatase 57 (35-129) units/L Total Creatine Kinase (30-135) units/L Troponin T < 0.010 (0.00-0.029) ng/mL Total Protein 6.9 (6.3-8.2) g/dL Albumin 4.0 (3.9-5) g/dL Albumin/Globulin Ratio 1.4 % Urine Color (Yellow) Urine Turbidity (Clear) Urine pH (5.0-7.0) Ur Specific Britt (1.003-1.030) Urine Protein (Negative) mg/dL Urine Glucose (UA) (Negative) mg/dL Urine Ketones (Negative) mg/dL Urine Blood (Negative) Urine Nitrite (Negative) Urine Bilirubin (Negative) Urine Urobilinogen (<2.0) mg/dL Ur Leukocyte Esterase (Negative) Urine WBC (Auto) (0.0-6.0) /HPF Urine RBC (Auto) (0.0-6.0) /HPF U Epithel Cells (Auto) (0-13.0) /HPF Urine Bacteria (Auto) (Negative) /HPF Urine Mucus /HPF Urine Yeast (Budding) /HPF 08/26/19 08/26/19 08/26/19 Range/Units 14:32 14:32 Unknown WBC (4.5-11.0) K/mm3 RBC (3.65-5.03) M/mm3 Hgb (10.1-14.3) gm/dl Hct (30.3-42.9) % MCV (79-97) fl MCH (28-32) pg MCHC (30-34) % RDW (13.2-15.2) % Plt Count (140-440) K/mm3 Lymph % (Auto) (13.4-35.0) % [place] % (Auto) (0.0-7.3) % Eos % (Auto) (0.0-4.3) % Baso % (Auto) (0.0-1.8) % Lymph # (1.2-5.4) K/mm3 [place] # (0.0-0.8) K/mm3 Eos # (0.0-0.4) K/mm3 Baso # (0.0-0.1) K/mm3 Seg Neutrophils % (40.0-70.0) % Seg Neutrophils # (1.8-7.7) K/mm3 PT (12.2-14.9) Sec. INR (0.87-1.13) APTT (24.2-36.6) Sec. Sodium (137-145) mmol/L Potassium (3.6-5.0) mmol/L Chloride (98-107) mmol/L Carbon Dioxide (22-30) mmol/L Anion Gap mmol/L BUN (7-17) mg/dL Creatinine (0.7-1.2) mg/dL Estimated GFR ml/min BUN/Creatinine Ratio % Glucose (65-100) mg/dL Calcium (8.4-10.2) mg/dL Phosphorus 6.70 H (2.5-4.5) mg/dL Magnesium 2.60 H (1.7-2.3) mg/dL Total Bilirubin (0.1-1.2) mg/dL AST (5-40) units/L ALT (7-56) units/L Alkaline Phosphatase (35-129) units/L Total Creatine Kinase 104 (30-135) units/L Troponin T (0.00-0.029) ng/mL Total Protein (6.3-8.2) g/dL Albumin (3.9-5) g/dL Albumin/Globulin Ratio % Urine Color Yellow (Yellow) Urine Turbidity Slightly-cloudy (Clear) Urine pH 8.0 H (5.0-7.0) Ur Specific Britt 1.010 (1.003-1.030) Urine Protein 100 mg/dl (Negative) mg/dL Urine Glucose (UA) Neg (Negative) mg/dL Urine Ketones Neg (Negative) mg/dL Urine Blood Sm (Negative) Urine Nitrite Neg (Negative) Urine Bilirubin Neg (Negative) Urine Urobilinogen < 2.0 (<2.0) mg/dL Ur Leukocyte Esterase Lg (Negative) Urine WBC (Auto) 5.0 (0.0-6.0) /HPF Urine RBC (Auto) 3.0 (0.0-6.0) /HPF U Epithel Cells (Auto) 11.0 (0-13.0) /HPF Urine Bacteria (Auto) 1+ (Negative) /HPF Urine Mucus Few /HPF Urine Yeast (Budding) Few /HPF - EKG Data EKG shows normal: sinus rhythm, ST-T waves Rate: normal - EKG Data Interpretation: no acute changes 08/26/19 17:35 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 TECHNIQUE: Axial imaging performed from the skull apex through the skull base without the use of contrast. Sagittal and coronal reformatted images. All CT scans at this location are performed using CT dose reduction for ALARA by means of automated exposure control. COMPARISON: 03/13/2019 FINDINGS: CEREBRAL PARENCHYMA: No significant abnormality. No acute territorial infarct. Mild nonspecific chronic white matter changes are stable since the previous exam. HEMORRHAGE: None. EXTRA-AXIAL SPACES: Normal in size and morphology for the patient's age. VENTRICULAR SYSTEM: Normal in size and morphology for the patient's age. MIDLINE SHIFT OR HERNIATION: None. CEREBELLUM / BRAINSTEM: No significant abnormality. CALVARIUM: No significant abnormality. ORBITS: Normal as visualized. PARANASAL SINUSES / MASTOID AIR CELLS: Normal as visualized. SOFT TISSUES of HEAD: No significant abnormality. ADDITIONAL FINDINGS: None. IMPRESSION: No acute intracranial abnormality. Signer Name: Paul Puente Jr, MD Signed: 08/26/2019 3:35 PM Workstation Name: [id number] Transcribed By: TTR Dictated By: PAUL PUENTE JR, MD Electronically Authenticated By: PAUL PUENTE JR, MD Signed Date/Time: 08/26/19 1535 CHEST 1 VIEW INDICATION: Weakness. COMPARISON: 03/24/2018 FINDINGS: Support devices: None. Heart: Stable cardiac enlargement. Pulmonary vasculature: Normal. Lungs/Pleura: Normally expanded and clear lungs. No pleural effusion. Additional findings: Degenerative change in the spine. IMPRESSION: Cardiomegaly but no CHF. Signer Name: Tushar Mo MD Signed: 08/26/2019 2:16 PM Workstation Name: [id number] Transcribed By: REF Dictated By: TUSHAR MO MD Electronically Authenticated By: TUSHAR MO MD Signed Date/Time: 08/26/19 1416 - Medical Decision Making pt is a 78-year-old female who presents to emergency room with complaints of dizziness that began a couple days ago. Has associated intermittent HURTADO, fatigue, feeling like she is off balance. She does feel like the room is spinning. pt states she only has dizziness when she gets up and walks around. she denies any HURTADO currently. Denies it getting worse when she lays flat. she denies any vision changes, numbness, unilateral weakness, speech disturbance. she was seen today at her primary care clinic and had pressure of 90/44 and the primary care doctor was concerned and sent her to the emergency room for evaluation of her fatigue and blood pressure reading while in the clinic. pt has a pmhx of HTN and takes hydralazine. no neuro deficits on examination. CXR with cardiomegaly, no CHF. CT head with no acute process. vitals during ED stay have shown mild elevated blood pressure, pt has chronic HTN. no orthostatic hypotension. labs are stable, slightly worse kidney function, pt is scheduled for dialysis tomorrow. EKG is unchanged from prior. pt given a dose of meclizine. pt was walked through the ED hallway and had no further episodes of dizziness. advised pt and pts family to please follow up with your primary care doctor in the next 2-3 days. please keep your appointment for dialysis tomorrow. return to the emergency room immediately for any new or worsening symptoms. - Differential Diagnosis vertigo, CVA, orthostatic hypotension, IBRAHIMA, UTI Critical care attestation.: If time is entered above; I have spent that time in minutes in the direct care of this critically ill patient, excluding procedure time. ED Disposition Clinical Impression: Dizziness, ESRD (end stage renal disease) Headache Qualifiers: Headache type: unspecified Headache chronicity pattern: episodic headache Intractability: not intractable Qualified Code(s): R51 - Headache Fatigue Qualifiers: Fatigue type: unspecified Qualified Code(s): R53.83 - Other fatigue Disposition: DC-01 TO HOME OR SELFCARE Is pt being admited?: No Does the pt Need Aspirin: No Condition: Stable Instructions: Dizziness (ED) Additional Instructions: please follow up with your primary care doctor in the next 2-3 days. please keep your appointment for dialysis tomorrow. return to the emergency room immediately for any new or worsening symptoms. Referrals: PRIMARY CARE,MD [Primary Care Provider] - 2-3 Days Time of Disposition: 17:02 Print Language: ITALIAN
[2019-08-26 15:14] LABS: Bacteria,Urine 1+ /HPF (Negative); Bilirubin,Urine NEG (Negative); Blood,Urine SM (Negative); Color,Urine Yellow (Yellow); Mucus,Urine FEW /HPF; Urobilinogen,Urine < 2.0 mg/dL (<2.0)
--- NOTE | 2019-08-26 15:39 | Cat Scan Report ---
CT HEAD WITHOUT CONTRAST INDICATION / CLINICAL INFORMATION: Headache, dizziness, feels off balance. TECHNIQUE: Axial imaging performed from the skull apex through the skull base without the use of cont rast. Sagittal and coronal reformatted images. All CT scans at this location are performed using CT dose reduction for ALARA by means of automated exposure control. COMPARISON: 03/13/2019 FINDINGS: CEREBRAL PARENCHYMA: No significant abnormality. No acute territorial infarct. Mild nonspecific chron ic white matter changes are stable since the previous exam. HEMORRHAGE: None. EXTRA-AXIAL SPACES: Normal in size and morphology for the patient's age. VENTRICULAR SYSTEM: Normal in size and morphology for the patient's age. MIDLINE SHIFT OR HERNIATION: None. CEREBELLUM / BRAINSTEM: No significant abnormality. CALVARIUM: No significant abnormality. ORBITS: Normal as visualized. PARANASAL SINUSES / MASTOID AIR CELLS: Normal as visualized. SOFT TISSUES of HEAD: No significant abnormality. ADDITIONAL FINDINGS: None. IMPRESSION: No acute intracranial abnormality. Signer Name: Paul Puente Jr, MD Signed: 08/26/2019 3:35 PM Workstation Name: [id number]
[2019-08-26 17:36] VITALS: BP 178/72
== END 2019-08-26 17:20 | disposition home or self-care (01) ==
LOC: ED 12:47
DX: R51 Headache (principal); R42 Dizziness and giddiness; I12.0 Hypertensive chronic kidney disease with stage 5 chronic kidney disease or end stage renal disease; N18.6 End stage renal disease; M19.90 Unspecified osteoarthritis, unspecified site; E78.00 Pure hypercholesterolemia, unspecified; Z99.2 Dependence on renal dialysis; Z90.710 Acquired absence of both cervix and uterus; Z79.899 Other long term (current) drug therapy
CPT/HCPCS: 36415; 70450; 71045; 80053; 81001; 82550; 83735; 84100; 84484; 85025; 85610; 85730; 93005; 93010; 99285

== ENCOUNTER 2020-08-25 00:17 | Observation (INO) | payer MEDICARE ==
[2020-08-25 01:44] LABS: Hematocrit 35.2 % (30.3-42.9); Hemoglobin 11.9 gm/dl (10.1-14.3); Mean Corpuscular HGB Conc 34 % (30-34); Mean Corpuscular Volume 104 fl (79-97); Platelet Count 132 K/mm3 (140-440); Red Blood Count 3.38 M/mm3 (3.65-5.03); Red Cell Distribution Width 15.2 % (13.2-15.2)
--- NOTE | 2020-08-25 03:00 | Cat Scan Report ---
CT head/brain wo con INDICATION: Patient complains of a headache. Hypertension. TECHNIQUE: All CT scans at this location are performed using CT dose reduction for ALARA by means of automated e xposure control. COMPARISON: 08/26/2019 FINDINGS: Visualized paranasal and mastoid sinuses are clear. Ventricles are symmetrical and normal in size. No mass, hemorrhage or other acute abnormality. IMPRESSION: 1. No acute abnormality and no interval change. Signer Name: Pramod Valdivia MD Signed: 08/25/2020 2:55 AM Workstation Name: [id number]
[2020-08-25] MEDS ORDERED: hydrALAZINE 25 MG TAB PO ONE (03:03)
[2020-08-25] MEDS ORDERED: ONDANSETRON 4 MG/2 ML INJ IV ONE (08:57)
[2020-08-25] MEDS ORDERED: hydrALAZINE 20 MG/1 ML INJ IV ONE (08:57)
[2020-08-25] MEDS ORDERED: cloNIDine 0.2 MG TAB PO ONE (09:33)
--- NOTE | 2020-08-25 09:41 | Emergency Department Report ---
ED General Adult HPI - General Chief complaint: High BP Stated complaint: NAUSEA, WEAK, ELEVATED BLOOD PRESSURE Time Seen by Provider: 08/25/20 08:25 Source: patient, family Mode of arrival: Wheelchair Limitations: Physical Limitation - History of Present Illness Initial comments: The patient presents to the emergency department with her daughter with a chief complaint nausea with a decreased appetite x2 days. The daughter states her mom is also complaining of a headache that she describes as throbbing in nature and is not the worst headache of her life. She is also had elevated blood pressures at home with the last reading being 217/99. Patient was due for dialysis today but was unable to go to her symptoms. Patient's last dialysis was on Monday. -: unknown Severity scale (0 -10): 5 Quality: aching Consistency: constant Improves with: none Worsens with: none Associated Symptoms: denies other symptoms Treatments Prior to Arrival: none - Related Data Home Medications Medication Instructions Recorded Confirmed Last Taken Simvastatin 20 mg PO DAILY 09/15/14 08/14/18 08/14/18 07:00 20 mg hydroCHLOROthiazide 25 mg PO DAILY 08/15/16 08/14/18 08/14/18 07:00 [Hydrochlorothiazide] 25 mg Gabapentin 2 tab PO DAILY 06/18/18 08/14/18 08/14/18 07:00 Latanoprost 0.005% 1 drop INTRAOCULA DAILY 06/18/18 08/14/18 08/13/18 1 drop Previous Rx's Medication Instructions Recorded Last Taken Type Doxazosin Mesylate [Cardura] 2 mg PO QHS #30 tablet 04/01/17 08/14/18 07:00 Rx 2 mg Clopidogrel Bisulfate [Plavix] 75 mg PO DAILY #90 tablet 06/18/18 08/14/18 Rx 75 mg Acetaminophen [Acetaminophen TAB] 650 mg PO Q4H PRN #15 tablet 08/18/18 Unknown Rx Epoetin Ulises 10,000 Unit [Procrit] 10,000 unit SUB-Q VALARIE PRN #1 vial 08/18/18 Unknown Rx Ondansetron [Zofran TAB] 4 mg PO PRN PRN #15 tablet 08/18/18 Unknown Rx Sulfamethoxazole/Trimethoprim 1 each PO BID #20 tablet 08/18/18 Unknown Rx [Bactrim 400-80 mg Tablet] Allergies Allergy/AdvReac Type Severity Reaction Status Date / Time No Known Allergies Allergy Verified 03/16/19 13:22 ED Review of Systems ROS: Stated complaint: NAUSEA, WEAK, ELEVATED BLOOD PRESSURE Other details as noted in HPI Comment: All other systems reviewed and negative Constitutional: denies: chills, fever Eyes: denies: eye pain, eye discharge, vision change ENT: denies: ear pain, throat pain Respiratory: denies: cough, shortness of breath, wheezing Cardiovascular: denies: chest pain, palpitations Endocrine: no symptoms reported Gastrointestinal: nausea. denies: abdominal pain, diarrhea Genitourinary: denies: urgency, dysuria, discharge Musculoskeletal: denies: back pain, joint swelling, arthralgia Skin: denies: rash, lesions Neurological: headache. denies: weakness, paresthesias Psychiatric: denies: anxiety, depression Hematological/Lymphatic: denies: easy bleeding, easy bruising ED Past Medical Hx - Past Medical History Hx Hypertension: Yes Hx Heart Attack/AMI: No Hx Congestive Heart Failure: No Hx Diabetes: No Hx Deep Vein Thrombosis: No Hx Pulmonary Embolism: No Hx Liver Disease: No Hx Renal Disease: Yes (, , Monday) Hx Arthritis: Yes (Knees) Hx Kidney Stones: No Hx Asthma: No Hx COPD: No Hx Tuberculosis: No Hx HIV: No Additional medical history: Gout, Cholesterol Alzheimer's - Surgical History Hx Coronary Stent: No Hx Pacemaker: No Hx Internal Defibrillator: No Additional Surgical History: Hysterectomy, MARIYA fistula, stent to leg - Social History Smoking Status: Current Every Day Smoker Substance Use Type: None - Medications Home Medications: Home Medications Medication Instructions Recorded Confirmed Last Taken Type Simvastatin 20 mg PO DAILY 09/15/14 08/14/18 08/14/18 07:00 History 20 mg hydroCHLOROthiazide 25 mg PO DAILY 08/15/16 08/14/18 08/14/18 07:00 History [Hydrochlorothiazide] 25 mg Doxazosin Mesylate [Cardura] 2 mg PO QHS #30 tablet 04/01/17 08/14/18 08/14/18 07:00 Rx 2 mg Clopidogrel Bisulfate [Plavix] 75 mg PO DAILY #90 tablet 06/18/18 08/14/18 Rx 75 mg Gabapentin 2 tab PO DAILY 06/18/18 08/14/18 08/14/18 07:00 History Latanoprost 0.005% 1 drop INTRAOCULA DAILY 06/18/18 08/14/18 08/13/18 History 1 drop Acetaminophen [Acetaminophen TAB] 650 mg PO Q4H PRN #15 tablet 08/18/18 Unknown Rx Epoetin Ulises 10,000 Unit [Procrit] 10,000 unit SUB-Q VALARIE PRN #1 vial 08/18/18 Unknown Rx Ondansetron [Zofran TAB] 4 mg PO PRN PRN #15 tablet 08/18/18 Unknown Rx Sulfamethoxazole/Trimethoprim 1 each PO BID #20 tablet 08/18/18 Unknown Rx [Bactrim 400-80 mg Tablet] ED Physical Exam - General Limitations: Physical Limitation ED Course Vital Signs 08/25/20 08/25/20 08/25/20 00:33 02:54 03:07 Temperature 98.2 F Pulse Rate 53 L 53 L 53 L Respiratory 20 20 Rate Blood Pressure 237/78 Blood Pressure 205/67 237/78 [Right] O2 Sat by Pulse 98 97 Oximetry 08/25/20 08/25/20 08/25/20 04:13 08:17 09:00 Temperature Pulse Rate 59 L 59 L 65 Respiratory 18 19 13 Rate Blood Pressure 239/90 239/90 Blood Pressure 226/78 [Right] O2 Sat by Pulse 99 98 98 Oximetry 08/25/20 08/25/20 09:42 10:00 Temperature Pulse Rate 61 63 Respiratory 13 Rate Blood Pressure 236/97 236/97 Blood Pressure [Right] O2 Sat by Pulse 95 Oximetry ED Medical Decision Making - Lab Data Result diagrams: 08/25/20 00:45 08/25/20 00:45 Lab Results 08/25/20 08/25/20 08/25/20 Range/Units 00:45 00:45 09:30 WBC 4.9 (4.5-11.0) K/mm3 RBC 3.38 L (3.65-5.03) M/mm3 Hgb 11.9 (10.1-14.3) gm/dl Hct 35.2 (30.3-42.9) % MCV 104 H (79-97) fl MCH 35 H (28-32) pg MCHC 34 (30-34) % RDW 15.2 (13.2-15.2) % Plt Count 132 L (140-440) K/mm3 Sodium 137 (137-145) mmol/L Potassium 4.8 (3.6-5.0) mmol/L Chloride 94.5 L (98-107) mmol/L Carbon Dioxide 26 (22-30) mmol/L Anion Gap 21 mmol/L BUN 26 H (7-17) mg/dL Creatinine 7.0 H (0.6-1.2) mg/dL Estimated GFR 7 ml/min BUN/Creatinine Ratio 4 % Glucose 79 (65-100) mg/dL Calcium 10.0 (8.4-10.2) mg/dL Total Bilirubin 0.40 (0.1-1.2) mg/dL AST 19 (5-40) units/L ALT 12 (7-56) units/L Alkaline Phosphatase 63 (35-129) units/L Troponin T 0.013 0.014 (0.00-0.029) ng/mL Total Protein 6.1 L (6.3-8.2) g/dL Albumin 4.0 (3.9-5) g/dL Albumin/Globulin Ratio 1.9 % Lipase 36 (13-60) units/L - EKG Data -: EKG Interpreted by Al EKG shows normal: sinus rhythm Rate: bradycardia - Radiology Data Radiology results: report reviewed Critical care attestation.: If time is entered above; I have spent that time in minutes in the direct care of this critically ill patient, excluding procedure time. ED Disposition Condition: Stable Referrals: PRIMARY CARE, [Primary Care Provider] - 3-5 Days
--- NOTE | 2020-08-25 09:47 | XRay Report ---
CHEST 1 VIEW INDICATION / CLINICAL INFORMATION: weakness. COMPARISON: 08/26/2019 FINDINGS: SUPPORT DEVICES: None. HEART / MEDIASTINUM: No significant abnormality. LUNGS / PLEURA: No significant pulmonary or pleural abnormality. No pneumothorax. ADDITIONAL FINDINGS: No significant additional findings. IMPRESSION: No acute disease or interval change from 05/26/2019 Signer Name: Skip Davis MD FACR Signed: 08/25/2020 9:42 AM Workstation Name: [id number]
--- NOTE | 2020-08-25 11:10 | Consultation ---
History of Present Illness - Reason for Consult Consult date: 08/25/20 end stage renal disease, accelerated hypertension - History of Present Illness The patient is a 79 YO female who is well known to our service with medical history significant for HTN, HLD, Dementia, Anemia, peripheral neuropathy and ESRD on hemodialysis (TTS) who presented to [facility] ED 08/25 with complaint of headache and nausea. Patient is a very poor historian. Per patient's daughter, patient has been feeling sick for about 2 days prior to presentation. Headache was described as throbbing in nature and is not the worst headache of her life. Patient's initial blood pressure was 237/78. Patient was due for dialysis today but was unable to go for this due to symptoms. Her last hemodialysis was 3 days prior to presentation. Nephrology was consulted for management of ESRD. Past History Past Medical History: other (See HPI) Medications and Allergies Allergies Allergy/AdvReac Type Severity Reaction Status Date / Time No Known Allergies Allergy Verified 03/16/19 13:22 Home Medications Medication Instructions Recorded Confirmed Last Taken Type Simvastatin 20 mg PO DAILY 09/15/14 08/14/18 08/14/18 07:00 History 20 mg hydroCHLOROthiazide 25 mg PO DAILY 08/15/16 08/14/18 08/14/18 07:00 History [Hydrochlorothiazide] 25 mg Doxazosin Mesylate [Cardura] 2 mg PO QHS #30 tablet 04/01/17 08/14/18 08/14/18 07:00 Rx 2 mg Clopidogrel Bisulfate [Plavix] 75 mg PO DAILY #90 tablet 06/18/18 08/14/18 08/14/18 Rx 75 mg Gabapentin 2 tab PO DAILY 06/18/18 08/14/18 08/14/18 07:00 History Latanoprost 0.005% 1 drop INTRAOCULA DAILY 06/18/18 08/14/18 08/13/18 History 1 drop Acetaminophen [Acetaminophen TAB] 650 mg PO Q4H PRN #15 tablet 08/18/18 Unknown Rx Epoetin Ulises 10,000 Unit [Procrit] 10,000 unit SUB-Q VALARIE PRN #1 vial 08/18/18 Unknown Rx Ondansetron [Zofran TAB] 4 mg PO PRN PRN #15 tablet 08/18/18 Unknown Rx Sulfamethoxazole/Trimethoprim 1 each PO BID #20 tablet 08/18/18 Unknown Rx [Bactrim 400-80 mg Tablet] Review of Systems ROS unobtainable: due to mental status Exam - Vital Signs Vital signs: Vital Signs Temp Pulse Resp BP Pulse Ox 98.2 F 53 L 20 205/67 98 08/25/20 00:33 08/25/20 00:33 08/25/20 00:33 08/25/20 00:33 08/25/20 00:33 Results - Lab Results 08/25/20 00:45 08/25/20 00:45 Most recent lab results Calcium 10.0 mg/dL (8.4-10.2) 08/25/20 00:45 Assessment and Plan 1. ESRD: Patient is on maintenance hemodialysis three times a week, TTS schedule. Last outpatient HD 08/22. Hemodialysis: 08/25. 2. FEN: Monitor volume status and lytes. 3. Anemia: Monitor and Epogen if needed. 4. Hypertensive urgency: Resume home meds. UF with HD. Monitor BP. 5. Dementia. Subjective: Patient was seen and examined at the bedside. Examination: General appearance: well-developed, well-nourished, appears stated age, no distress HEENT: ATNC, PERRL, mucous membranes moist, hearing intact, vision intact Neck: supple Respiratory: Clear to Ascultation Cardiology: regular, S1S2, no murmur Gastrointestinal: normoactive bowel sounds, no tenderness, no distended, obese Integumentary: no obvious rash Neurologic: no focal deficit, no asterixis, confused Ext: no edema Hemodialysis access: L arm AVF
[2020-08-25] MEDS ORDERED: SODIUM CHLORIDE 0.9% 100 ML IV PRN (11:11)
[2020-08-25] MEDS ORDERED: HEPARIN 10,000 UNITS/10 ML VIAL IV PRN (11:11)
[2020-08-25] MEDS ORDERED: NIFEdipine XL 90 MG TAB PO ONE (12:00)
[2020-08-25 13:22] LABS: Hepatitis B Surface Antigen Non-Reactive (Negative); Hepatitis C Virus Antibody Reactive (NonReactive)
[2020-08-25] MEDS ORDERED: ACETAMINOPHEN 325 MG TAB PO PRN (13:59)
[2020-08-25] MEDS ORDERED: ONDANSETRON 4 MG/2 ML INJ IV PRN (13:59)
[2020-08-25] MEDS ORDERED: MELATONIN 5 MG TAB PO PRN (14:01)
--- NOTE | 2020-08-25 14:03 | History and Physical Report ---
History of Present Illness Date of examination: 08/25/20 Date of admission: 08/25/20 11:43 Chief complaint: Headache and nausea History of present illness: 79-year-old female with a medical history of dementia, ESRD, hypertension admitted with a chief complaint of headache and nausea. As per patient's daughter, patient has been feeling sick for about 2 days prior to presentation. Headache is described as throbbing in nature and is not the worst headache of her life. She is also had elevated blood pressures at home with the last reading being 217/99. Patient was due for dialysis on the day of presentation but was unable to go for this due to symptoms. Her last hemodialysis was 3 days prior to presentation. She has also been unsteady and she kept on mentioning that her legs are bothering her. In the ER, patient was found to have hypertensive crisis and received IV blood pressure medication and clonidine. Nephrology was consulted for hemodialysis. I called patient's daughter-Agustina and got list of medications that patient currently takes. Medications have been ordered Past History Past Medical History: hypertension, renal failure Medications and Allergies Allergies Allergy/AdvReac Type Severity Reaction Status Date / Time No Known Allergies Allergy Verified 03/16/19 13:22 Home Medications Medication Instructions Recorded Confirmed Last Taken Type Simvastatin 20 mg PO DAILY 09/15/14 08/14/18 08/14/18 07:00 History 20 mg hydroCHLOROthiazide 25 mg PO DAILY 08/15/16 08/14/18 08/14/18 07:00 History [Hydrochlorothiazide] 25 mg Doxazosin Mesylate [Cardura] 2 mg PO QHS #30 tablet 04/01/17 08/14/18 08/14/18 07:00 Rx 2 mg Clopidogrel Bisulfate [Plavix] 75 mg PO DAILY #90 tablet 06/18/18 08/14/18 08/14/18 Rx 75 mg Gabapentin 2 tab PO DAILY 06/18/18 08/14/18 08/14/18 07:00 History Latanoprost 0.005% 1 drop INTRAOCULA DAILY 06/18/18 08/14/18 08/13/18 History 1 drop Acetaminophen [Acetaminophen TAB] 650 mg PO Q4H PRN #15 tablet 08/18/18 Unknown Rx Epoetin Ulises 10,000 Unit [Procrit] 10,000 unit SUB-Q VALARIE PRN #1 vial 08/18/18 Unknown Rx Ondansetron [Zofran TAB] 4 mg PO PRN PRN #15 tablet 08/18/18 Unknown Rx Sulfamethoxazole/Trimethoprim 1 each PO BID #20 tablet 08/18/18 Unknown Rx [Bactrim 400-80 mg Tablet] Active Meds: Active Medications Acetaminophen (Tylenol) 650 mg PO Q4H PRN PRN Reason: Pain MILD(1-3)/Fever >100.5/HURTADO Amlodipine Besylate (Amlodipine) 10 mg PO QDAY HOOD Clonidine HCl (Catapres) 0.1 mg PO Q12HR HOOD Heparin Sodium (Porcine) (Heparin 10,000 Units/10 Ml) 3,000 unit IV VALARIE PRN PRN Reason: hemodialysis Last Admin: 08/25/20 12:40 Dose: 3,000 unit Documented by: Hydralazine HCl (Apresoline) 25 mg PO Q8HR HOOD Sodium Chloride (Nacl 0.9%) 100 mls @ 999 mls/hr IV VALARIE PRN PRN Reason: Hypotension Ondansetron HCl (Zofran) 4 mg IV Q8H PRN PRN Reason: Nausea And Vomiting Sodium Chloride (Sodium Chloride Flush Syringe 10 Ml) 10 ml IV BID HOOD Sodium Chloride (Sodium Chloride Flush Syringe 10 Ml) 10 ml IV PRN PRN PRN Reason: LINE FLUSH Review of Systems All systems: negative (Slightly lethargic during my encounter) Exam - Constitutional Vitals: Temp Pulse Resp BP Pulse Ox 98.2 F 60 20 236/97 96 08/25/20 00:33 08/25/20 11:00 08/25/20 11:20 08/25/20 11:00 08/25/20 11:20 General appearance: Present: no acute distress, well-nourished - EENT Eyes: Present: PERRL ENT: hearing intact, clear oral mucosa - Neck Neck: Present: supple, normal ROM - Respiratory Respiratory effort: normal Respiratory: bilateral: CTA - Cardiovascular Heart Sounds: Present: S1 & S2. Absent: rub, click - Extremities Extremities: pulses symmetrical, No edema Peripheral Pulses: within normal limits - Abdominal General gastrointestinal: Present: soft, non-tender, non-distended, normal bowel sounds Female genitourinary: Present: normal - Integumentary Integumentary: Present: clear, warm, dry - Musculoskeletal Musculoskeletal: gait normal, strength equal bilaterally - Psychiatric Psychiatric: appropriate mood/affect, intact judgment & insight - Neurologic Neurologic: CNII-XII intact, moves all extremities HEART Score - HEART Score Troponin: Troponin T 0.014 ng/mL (0.00-0.029) 08/25/20 09:30 Results - Labs CBC & Chem 7: 08/25/20 00:45 10 00:45 Labs: Laboratory Last Values WBC 4.9 K/mm3 (4.5-11.0) 08/25/20 00:45 RBC 3.38 M/mm3 (3.65-5.03) L 08/25/20 00:45 Hgb 11.9 gm/dl (10.1-14.3) 08/25/20 00:45 Hct 35.2 % (30.3-42.9) 08/25/20 00:45 MCV 104 fl (79-97) H 08/25/20 00:45 MCH 35 pg (28-32) H 08/25/20 00:45 MCHC 34 % (30-34) 08/25/20 00:45 RDW 15.2 % (13.2-15.2) 08/25/20 00:45 Plt Count 132 K/mm3 (140-440) L 08/25/20 00:45 Sodium 137 mmol/L (137-145) 08/25/20 00:45 Potassium 4.8 mmol/L (3.6-5.0) 08/25/20 00:45 Chloride 94.5 mmol/L (98-107) L 08/25/20 00:45 Carbon Dioxide 26 mmol/L (22-30) 08/25/20 00:45 Anion Gap 21 mmol/L 08/25/20 00:45 BUN 26 mg/dL (7-17) H 08/25/20 00:45 Creatinine 7.0 mg/dL (0.6-1.2) H 08/25/20 00:45 Estimated GFR 7 ml/min 08/25/20 00:45 BUN/Creatinine Ratio 4 % 08/25/20 00:45 Glucose 79 mg/dL (65-100) 08/25/20 00:45 Calcium 10.0 mg/dL (8.4-10.2) 08/25/20 00:45 Total Bilirubin 0.40 mg/dL (0.1-1.2) 08/25/20 00:45 AST 19 units/L (5-40) 08/25/20 00:45 ALT 12 units/L (7-56) 08/25/20 00:45 Alkaline Phosphatase 63 units/L (35-129) 08/25/20 00:45 Troponin T 0.014 ng/mL (0.00-0.029) 08/25/20 09:30 Total Protein 6.1 g/dL (6.3-8.2) L 08/25/20 00:45 Albumin 4.0 g/dL (3.9-5) 08/25/20 00:45 Albumin/Globulin Ratio 1.9 % 08/25/20 00:45 Lipase 36 units/L (13-60) 08/25/20 00:45 Hepatitis A IgM Ab Non-reactive (NonReactive) 08/25/20 11:35 Hep Bs Antigen Non-reactive (Negative) 08/25/20 11:35 Hep B Core IgM Ab Non-reactive (NonReactive) 08/25/20 11:35 Hepatitis C Antibody Reactive (NonReactive) A 08/25/20 11:35 Dugan/IV: IV Catheter Type [Right INT / Saline Lock Forearm] Assessment and Plan - Patient Problems (1) Hypertensive crisis Current Visit: Yes Status: Acute Plan to address problem: Started on clonidine, amlodipine and hydralazine Continue to monitor blood pressure closely (2) ESRD (end stage renal disease) on dialysis Current Visit: No Status: Acute Plan to address problem: Hemodialysis as scheduled Nephrology on board (3) Dementia Current Visit: Yes Status: Acute Plan to address problem: Continue memantine (4) DVT prophylaxis Current Visit: No Status: Acute Plan to address problem: Heparin subcutaneous 3 times a day.
[2020-08-25] MEDS: cloNIDine 0.1 MG TAB PO SCH ×2 (17:39→22:14)
[2020-08-25 19:59] LABS: Bacteria,Urine 1+ /HPF (Negative); Bilirubin,Urine NEG (Negative); Blood,Urine NEG (Negative); Color,Urine Straw (Yellow); Mucus,Urine FEW /HPF; Urobilinogen,Urine < 2.0 mg/dL (<2.0)
[2020-08-25] MEDS: HEPARIN 5,000 UNIT/1 ML VIAL SUB-Q SCH (22:14)
[2020-08-25] MEDS: GABAPENTIN 100 MG CAP PO SCH (22:14)
[2020-08-25] MEDS: hydrALAZINE 25 MG TAB PO SCH (22:14)
[2020-08-26] MEDS: hydrALAZINE 25 MG TAB PO SCH (05:47)
[2020-08-26] MEDS: HEPARIN 5,000 UNIT/1 ML VIAL SUB-Q SCH (05:48)
[2020-08-26] MEDS: GABAPENTIN 100 MG CAP PO SCH (09:31)
[2020-08-26] MEDS: cloNIDine 0.1 MG TAB PO SCH (09:31)
--- NOTE | 2020-08-26 09:56 | Progress Note ---
Assessment and Plan 1. ESRD: Patient is on maintenance hemodialysis three times a week, TTS schedule. Last outpatient HD 08/22. Hemodialysis: 08/25. 2. FEN: Monitor volume status and lytes. 3. Anemia: Monitor and Epogen if needed. 4. Hypertensive urgency: BP controlled now. Monitor BP. 5. Dementia. Care plan d/w her daughter over the phone. Subjective: Patient was seen and examined at the bedside. Doing ok. Examination: General appearance: well-developed, well-nourished, appears stated age, no distress HEENT: ATNC, SUNDAR, mucous membranes moist, hearing intact, vision intact Neck: supple Respiratory: Clear to Ascultation Cardiology: regular, S1S2, no murmur Gastrointestinal: normoactive bowel sounds, no tenderness, no distended, obese Integumentary: no obvious rash Neurologic: no focal deficit, no asterixis, confused Ext: no edema Hemodialysis access: L arm AVF Subjective Date of service: 08/26/20 Objective - Vital Signs Vital signs: Vital Signs - 12hr 08/26/20 04:11 Temperature 97.5 F L Pulse Rate 46 L Respiratory 16 Rate Blood Pressure 112/49 O2 Sat by Pulse 96 Oximetry - Lab 08/26/20 09:09 08/26/20 09:09 Most recent lab results Calcium 10.0 mg/dL (8.4-10.2) 08/25/20 00:45 Medications & Allergies - Medications Allergies/Adverse Reactions: Allergies No Known Allergies Allergy (Verified 03/16/19 13:22) Home Medications: Home Medications Medication Instructions Recorded Confirmed Last Taken Type Simvastatin 20 mg PO DAILY 09/15/14 08/14/18 08/14/18 07:00 History 20 mg Doxazosin Mesylate [Cardura] 2 mg PO QHS #30 tablet 04/01/17 08/14/18 08/14/18 07:00 Rx 2 mg Clopidogrel Bisulfate [Plavix] 75 mg PO DAILY #90 tablet 06/18/18 08/14/18 08/14/18 Rx 75 mg Gabapentin 2 tab PO DAILY 06/18/18 08/14/18 08/14/18 07:00 History Latanoprost 0.005% 1 drop INTRAOCULA DAILY 06/18/18 08/14/18 08/13/18 History 1 drop Epoetin Ulises 10,000 Unit [Procrit] 10,000 unit SUB-Q VALARIE PRN #1 vial 08/18/18 Unknown Rx Ondansetron [Zofran TAB] 4 mg PO PRN PRN #15 tablet 08/18/18 Unknown Rx Sulfamethoxazole/Trimethoprim 1 each PO BID #20 tablet 08/18/18 Unknown Rx [Bactrim 400-80 mg Tablet] amLODIPine 10 mg PO QDAY #30 tablet 08/26/20 Unknown Rx cloNIDine [Catapres] 0.1 mg PO Q12HR #60 tablet 08/26/20 Unknown Rx hydrALAZINE [Apresoline TAB] 25 mg PO Q8HR #90 tablet 08/26/20 Unknown Rx Active Medications: Generic Name Dose Route Start Last Admin Trade Name Freq PRN Reason Stop Dose Admin Acetaminophen 650 mg 08/25/20 13:59 Tylenol PO Q4H PRN Pain MILD(1-3)/Fever >100.5/HURTADO Amlodipine Besylate 10 mg 08/26/20 10:00 08/26/20 09:31 Amlodipine PO 10 mg QDAY HOOD Administration Clonidine HCl 0.1 mg 08/25/20 14:00 08/26/20 09:31 Catapres PO 0.1 mg Q12HR HOOD Administration Doxazosin Mesylate 2 mg 08/26/20 10:00 08/26/20 09:31 Cardura PO 2 mg QDAY HOOD Administration Gabapentin 100 mg 08/25/20 22:00 08/26/20 09:31 Gabapentin PO 100 mg BID HOOD Administration Heparin Sodium (Porcine) 3,000 unit 08/25/20 11:11 08/25/20 12:40 Heparin 10,000 Units/10 Ml IV 3,000 unit VALARIE PRN Administration hemodialysis Heparin Sodium (Porcine) 5,000 unit 08/25/20 22:00 08/26/20 05:48 Heparin SUB-Q 5,000 unit Q8HR HOOD Administration Hydralazine HCl 25 mg 08/25/20 22:00 08/26/20 05:47 Apresoline PO Not Given Q8HR HOOD Sodium Chloride 100 mls @ 999 mls/hr 08/25/20 11:11 Nacl 0.9% IV VALARIE PRN Hypotension Melatonin 5 mg 08/25/20 14:01 08/25/20 22:14 Melatonin PO 5 mg QHS PRN Administration Sleep Ondansetron HCl 4 mg 08/25/20 13:59 Zofran IV Q8H PRN Nausea And Vomiting Sodium Chloride 10 ml 08/25/20 22:00 08/26/20 09:32 Sodium Chloride Flush Syringe 10 Ml IV 10 ml BID HOOD Administration Sodium Chloride 10 ml 08/25/20 13:59 Sodium Chloride Flush Syringe 10 Ml IV PRN PRN LINE FLUSH
[2020-08-26] MEDS ORDERED: DOXAZOSIN 1 MG TAB PO SCH (10:00)
[2020-08-26] MEDS ORDERED: amLODIPine 10 MG TAB PO SCH (10:00)
--- NOTE | 2020-08-26 10:09 | Discharge Summary ---
Providers - Providers Date of Admission: 08/25/20 11:43 Date of discharge: 08/26/20 Attending physician: JENNIFER SCHOFIELD 08/25/20 11:04 Consult to Physician [CONS] Routine Comment: Consulting Provider: AIDE ORTIZ Physician Instructions: Reason For Exam: dialysis 08/26/20 03:34 Physical Therapy Evaluation and Treat [CONS] Routine Comment: Reason For Exam: to assess walking stablity. Primary care physician: CAMERA MAKER Hospitalization Reason for admission: headache Condition: Stable Hospital course: 79-year-old female with a medical history of dementia, ESRD, hypertension admitted with a chief complaint of headache and nausea. As per patient's daughter, patient has been feeling sick for about 2 days prior to presentation. Headache is described as throbbing in nature and is not the worst headache of her life. She is also had elevated blood pressures at home with the last readi ng being 217/99. Patient was due for dialysis on the day of presentation but was unable to go for this due to symptoms. Her last hemodialysis was 3 days prior to presentation. She has also been unsteady and she kept on mentioning that her legs are bothering her. She takes gabapentin for neuropathic pain. In the ER, patient was found to have hypertensive crisis and received IV blood pressure medication and clonidine. Nephrology was consulted for hemodialysis. CT head performed in the ER showed no acute abnormality. I called patient's daughter-Agustina and got list of medications that patient currently takes. Medications have been ordered. 08/26. Patient's blood pressure has significantly improved. SBP in the 120s/130s after addition of clonidine. Patient has been advised to continue blood pressure medication as ordered. She has no focal neurologic deficits and her headache has resolved. - Discharge Diagnoses (1) Hypertensive crisis Status: Acute (2) ESRD (end stage renal disease) on dialysis Status: Acute (3) Dementia Status: Acute (4) DVT prophylaxis Status: Acute Core Measure Documentation - Palliative Care Palliative Care/ Comfort Measures: Not Applicable - Core Measures Any of the following diagnoses?: none Exam - Constitutional Vitals: Temp Pulse Resp BP Pulse Ox 97.5 F L 46 L 16 112/49 96 08/26/20 04:11 08/26/20 04:11 08/26/20 04:11 08/26/20 04:11 08/26/20 04:11 General appearance: Present: no acute distress, well-nourished - EENT Eyes: Present: PERRL ENT: hearing intact, clear oral mucosa - Neck Neck: Present: supple, normal ROM - Respiratory Respiratory effort: normal Respiratory: bilateral: CTA - Cardiovascular Heart Sounds: Present: S1 & S2. Absent: rub, click - Extremities Extremities: pulses symmetrical, No edema Peripheral Pulses: within normal limits - Abdominal General gastrointestinal: Present: soft, non-tender, non-distended, normal bowel sounds Female genitourinary: Present: normal - Integumentary Integumentary: Present: clear, warm, dry - Musculoskeletal Musculoskeletal: gait normal, strength equal bilaterally - Psychiatric Psychiatric: appropriate mood/affect, intact judgment & insight - Neurologic Neurologic: CNII-XII intact, moves all extremities Plan Diet: low salt, renal Additional Instructions: Continue blood pressure medications as ordered. Continue to check blood pressure daily. Follow-up with primary medical doctor for control of blood pressure and adjustment of medications. Continue hemodialysis as scheduled Follow up with: PRIMARY CARE, [Primary Care Provider] - 3-5 Days Prescriptions: amLODIPine 10 mg PO QDAY #30 tablet hydrALAZINE [Apresoline TAB] 25 mg PO Q8HR #90 tablet cloNIDine [Catapres] 0.1 mg PO Q12HR #60 tablet
[2020-08-26 10:19] LABS: Basophils % (Auto) 0.2 % (0.0-1.8); Eosinophils # (Auto) 0.2 K/mm3 (0.0-0.4); Eosinophils % (Auto) 3.2 % (0.0-4.3); Hematocrit 38.5 % (30.3-42.9); Lymphocytes # (Auto) 0.4 K/mm3 (1.2-5.4); Lymphocytes % (Auto) 8.7 % (13.4-35.0); Mean Corpuscular HGB Conc 34 % (30-34); Mean Corpuscular Volume 105 fl (79-97); Monocytes # (Auto) 0.3 K/mm3 (0.0-0.8); Monocytes % (Auto) 6.8 % (0.0-7.3); Platelet Count 128 K/mm3 (140-440); Red Blood Count 3.68 M/mm3 (3.65-5.03); Red Cell Distribution Width 15.6 % (13.2-15.2)
[2020-08-26 10:36] LABS: Calcium 9.8 mg/dL (8.4-10.2)
[2020-08-26 11:56] VITALS: BP 121/49
== END 2020-08-26 12:42 | disposition home or self-care (01) ==
LOC: ED 00:17 → 3A 11:43
PROVIDERS: ADMIT Internal Medicine; ATTEND Internal Medicine
DX: I16.0 Hypertensive urgency (principal); I16.9 Hypertensive crisis, unspecified; I12.0 Hypertensive chronic kidney disease with stage 5 chronic kidney disease or end stage renal disease; N18.6 End stage renal disease; D63.1 Anemia in chronic kidney disease; F02.80 Dementia in other diseases classified elsewhere, unspecified severity, without behavioral disturbance, psychotic disturbance, mood disturbance, and anxiety; E78.5 Hyperlipidemia, unspecified; M19.90 Unspecified osteoarthritis, unspecified site; M10.9 Gout, unspecified; F17.210 Nicotine dependence, cigarettes, uncomplicated; Z79.02 Long term (current) use of antithrombotics/antiplatelets; Z90.710 Acquired absence of both cervix and uterus; Z99.2 Dependence on renal dialysis
CPT/HCPCS: 36415; 70450; 71045; 80053; 80074; 81001; 83690; 84484; 85025; 85027; 93005; 96372; 96374; 97110; 97161; 99285; 99406; G0378; J1644; J2405

== ENCOUNTER 2022-02-22 12:08 | Inpatient (IN) | payer MEDICARE ==
--- NOTE | 2022-02-22 12:58 | Event Note ---
ED Screening Note ED Screening Note: sent from HD clinic for AMS pt co feeling unusually weak and sob last HD Monday lives with daughter reports recent decline in function no trauma or fall has some dementia; does some self care makes some urine This initial assessment/diagnostic orders/clinical plan/treatment(s) is/are subject to change based on patients health status, clinical progression and re- assessment by fellow clinical providers in the ED. Further treatment and workup at subsequent clinical providers discretion. Patient/guardian urged not to elope from the ED as their condition may be serious if not clinically assessed and managed. Initial orders include: ro neuro/cardiac event
--- NOTE | 2022-02-22 13:27 | Emergency Department Report ---
ED General Adult HPI - General Chief complaint: Altered Mental Status Stated complaint: AMS Time Seen by Provider: 02/22/22 13:08 Source: EMS Mode of arrival: Stretcher Limitations: No Limitations - History of Present Illness Initial comments: patient presents from dialysis 12/22 AMS. Per daughter, patient was acting differently for the staff over there. Patient denies any symptoms here. Denies HURTADO, numbness, weakness, CP, SOB, abd pain, back pain, pain in her extremities. - Related Data Home Medications Medication Instructions Recorded Confirmed Last Taken Simvastatin 20 mg PO DAILY 09/15/14 08/14/18 08/14/18 07:00 20 mg Gabapentin 2 tab PO DAILY 06/18/18 08/14/18 08/14/18 07:00 Latanoprost 0.005% 1 drop INTRAOCULA DAILY 06/18/18 08/14/18 08/13/18 1 drop Previous Rx's Medication Instructions Recorded Last Taken Type Doxazosin Mesylate [Cardura] 2 mg PO QHS #30 tablet 04/01/17 08/14/18 07:00 Rx 2 mg Clopidogrel Bisulfate [Plavix] 75 mg PO DAILY #90 tablet 06/18/18 08/14/18 Rx 75 mg Epoetin Ulises 10,000 Unit [Procrit] 10,000 unit SUB-Q VALARIE PRN #1 vial 08/18/18 Unknown Rx Ondansetron [Zofran TAB] 4 mg PO PRN PRN #15 tablet 08/18/18 Unknown Rx Sulfamethoxazole/Trimethoprim 1 each PO BID #20 tablet 08/18/18 Unknown Rx [Bactrim 400-80 mg Tablet] amLODIPine 10 mg PO QDAY #30 tablet 08/26/20 Unknown Rx cloNIDine [Catapres] 0.1 mg PO Q12HR #60 tablet 08/26/20 Unknown Rx hydrALAZINE [Apresoline TAB] 25 mg PO Q8HR #90 tablet 08/26/20 Unknown Rx Allergies Allergy/AdvReac Type Severity Reaction Status Date / Time No Known Allergies Allergy Verified 03/16/19 13:22 ED Review of Systems ROS: Stated complaint: AMS Other details as noted in HPI Comment: All other systems reviewed and negative Constitutional: denies: chills, fever ED Past Medical Hx - Past Medical History Hx Hypertension: Yes Hx Heart Attack/AMI: No Hx Congestive Heart Failure: No Hx Diabetes: No Hx Deep Vein Thrombosis: No Hx Pulmonary Embolism: No Hx Liver Disease: No Hx Renal Disease: Yes (T, , Monday) Hx Arthritis: Yes (Knees) Hx Kidney Stones: No Hx Asthma: No Hx COPD: No Hx Tuberculosis: No Hx Dementia: Yes Hx HIV: No Additional medical history: Gout, Cholesterol Alzheimer's - Surgical History Hx Coronary Stent: No Hx Pacemaker: No Hx Internal Defibrillator: No Additional Surgical History: Hysterectomy, MARIYA fistula, stent to leg - Social History Smoking Status: Current Every Day Smoker Substance Use Type: None - Medications Home Medications: Home Medications Medication Instructions Recorded Confirmed Last Taken Type Simvastatin 20 mg PO DAILY 09/15/14 08/14/18 08/14/18 07:00 History 20 mg Doxazosin Mesylate [Cardura] 2 mg PO QHS #30 tablet 04/01/17 08/14/18 08/14/18 07:00 Rx 2 mg Clopidogrel Bisulfate [Plavix] 75 mg PO DAILY #90 tablet 06/18/18 08/14/18 08/14/18 Rx 75 mg Gabapentin 2 tab PO DAILY 06/18/18 08/14/18 08/14/18 07:00 History Latanoprost 0.005% 1 drop INTRAOCULA DAILY 06/18/18 08/14/18 08/13/18 History 1 drop Epoetin Ulises 10,000 Unit [Procrit] 10,000 unit SUB-Q VALARIE PRN #1 vial 08/18/18 Unknown Rx Ondansetron [Zofran TAB] 4 mg PO PRN PRN #15 tablet 08/18/18 Unknown Rx Sulfamethoxazole/Trimethoprim 1 each PO BID #20 tablet 08/18/18 Unknown Rx [Bactrim 400-80 mg Tablet] amLODIPine 10 mg PO QDAY #30 tablet 08/26/20 Unknown Rx cloNIDine [Catapres] 0.1 mg PO Q12HR #60 tablet 08/26/20 Unknown Rx hydrALAZINE [Apresoline TAB] 25 mg PO Q8HR #90 tablet 08/26/20 Unknown Rx ED Physical Exam - General Limitations: No Limitations General appearance: alert, in no apparent distress - Head Head exam: Present: atraumatic, normocephalic - Eye Eye exam: Present: PERRL, EOMI - ENT ENT exam: Present: mucous membranes moist, other (airway patent) - Respiratory Respiratory exam: Present: other (good air entry, nml I:E, CTAB, no use of GERALDINE) - Cardiovascular Cardiovascular Exam: Present: regular rate. Absent: rubs, gallop - GI/Abdominal GI/Abdominal exam: Present: soft. Absent: distended, tenderness, guarding, rebound - Extremities Exam Extremities exam: Present: other (no lower extremity edema; non tender calves; neg Dionna's sign bilaterally) - Back Exam Back exam: Present: normal inspection. Absent: CVA tenderness (R), CVA tenderness (L) - Neurological Exam Neurological exam: Present: alert, CN II-XII intact, other (oriented x 2 (to person and place)). Absent: motor sensory deficit - Skin Skin exam: Present: normal color. Absent: rash ED Course Vital Signs 02/22/22 12:18 Temperature 98.7 F Pulse Rate 66 Respiratory 16 Rate Blood Pressure 156/80 [Right] O2 Sat by Pulse 100 Oximetry ED Medical Decision Making - Lab Data Result diagrams: 02/22/22 13:30 02/22/22 13:30 Laboratory Tests 02/22/22 02/22/22 02/22/22 13:26 13:26 13:30 WBC 8.1 RBC 3.80 Hgb 12.6 Hct 37.0 MCV 98 H MCH 33 H MCHC 34 RDW 15.0 Plt Count 161 Lymph % (Auto) 18.7 [place] % (Auto) 8.9 H Eos % (Auto) 0.8 Baso % (Auto) 0.3 Lymph # (Auto) 1.5 [place] # (Auto) 0.7 Eos # (Auto) 0.1 Baso # (Auto) 0.0 Seg Neutrophils % 71.3 H Seg Neutrophils # 5.8 PT INR APTT Sodium Potassium Chloride Carbon Dioxide Anion Gap BUN Creatinine Estimated GFR BUN/Creatinine Ratio Glucose Lactic Acid 1.60 Calcium Phosphorus Magnesium Total Bilirubin AST ALT Alkaline Phosphatase Ammonia < 10.0 L Troponin T NT-Pro-B Natriuret Pep Total Protein Albumin Albumin/Globulin Ratio Triglycerides Cholesterol LDL Cholesterol Direct HDL Cholesterol Cholesterol/HDL Ratio TSH 02/22/22 02/22/22 02/22/22 13:30 13:30 13:30 WBC RBC Hgb Hct MCV MCH MCHC RDW Plt Count Lymph % (Auto) [place] % (Auto) Eos % (Auto) Baso % (Auto) Lymph # (Auto) [place] # (Auto) Eos # (Auto) Baso # (Auto) Seg Neutrophils % Seg Neutrophils # PT 12.8 INR 0.87 APTT 30.8 Sodium 136 L Potassium 4.5 Chloride 94.0 L Carbon Dioxide 20 L Anion Gap 27 BUN 52 H Creatinine 11.2 H Estimated GFR 4 BUN/Creatinine Ratio 5 Glucose 97 Lactic Acid Calcium 10.3 H Phosphorus 3.80 Magnesium 2.60 H Total Bilirubin 0.40 AST 23 ALT 13 Alkaline Phosphatase 68 Ammonia Troponin T 0.041 H NT-Pro-B Natriuret Pep 8554 H Total Protein 7.6 Albumin 4.3 Albumin/Globulin Ratio 1.3 Triglycerides 139 Cholesterol 157 LDL Cholesterol Direct 69 HDL Cholesterol 63 H Cholesterol/HDL Ratio 2.49 TSH 02/22/22 13:30 WBC RBC Hgb Hct MCV MCH MCHC RDW Plt Count Lymph % (Auto) [place] % (Auto) Eos % (Auto) Baso % (Auto) Lymph # (Auto) [place] # (Auto) Eos # (Auto) Baso # (Auto) Seg Neutrophils % Seg Neutrophils # PT INR APTT Sodium Potassium Chloride Carbon Dioxide Anion Gap BUN Creatinine Estimated GFR BUN/Creatinine Ratio Glucose Lactic Acid Calcium Phosphorus Magnesium Total Bilirubin AST ALT Alkaline Phosphatase Ammonia Troponin T NT-Pro-B Natriuret Pep Total Protein Albumin Albumin/Globulin Ratio Triglycerides Cholesterol LDL Cholesterol Direct HDL Cholesterol Cholesterol/HDL Ratio TSH 1.400 UA pending CXR: no acute cardiopulmonary process CT head: no acute intracranial process Dr. Morgan (primary renal) consulted. Will dialyze patient Critical care attestation.: If time is entered above; I have spent that time in minutes in the direct care of this critically ill patient, excluding procedure time. ED Disposition Clinical Impression: ESRD (end stage renal disease), Altered mental status Disposition: ADMITTED INPATIENT Is pt being admited?: Yes Does the pt Need Aspirin: No Condition: Stable Instructions: Dialysis Time of Disposition: 16:00 (Patient admitted to Dr. Julian. Sign out was called by me to the admitting physician)
--- NOTE | 2022-02-22 13:42 | Cat Scan Report ---
CT BRAIN: 02/22/2022 INDICATION / CLINICAL INFORMATION: ams. COMPARISON: CT brain 08/25/2020 FINDINGS: BRAIN/INTRACRANIAL STRUCTURES: Unenhanced CT images of the brain were obtained and compared to prior exam from 08/25/2020. There is no evidence of acute abnormality. Ventricles and sulci are prominent in size, consistent wit h prominent age-related atrophic change. There is no evidence of acute large vessel territory ischemic injury, hemorrhage, or mass. Prominent chronic microangiopathic white matter hypoattenuation is present throughout the cerebral hemispheric white matter. There is no evidence of large vessel acute ischemic injury, hemorrhage, or mass. There are no abnorma l extra-axial fluid collections. EXTRACRANIAL STRUCTURES: Unremarkable. IMPRESSION: No acute abnormality. Chronic and age-related changes. No significant change when compared to 08/25/2020. All CT scans at this location are performed using dose reduction to ALARA by means of automated expos ure control. Signer Name: Jose G Michel MD Signed: 02/22/2022 1:38 PM Workstation Name: [id number]
[2022-02-22 13:56] LABS: Basophils % (Auto) 0.3 % (0.0-1.8); Eosinophils # (Auto) 0.1 K/mm3 (0.0-0.4); Eosinophils % (Auto) 0.8 % (0.0-4.3); Hemoglobin 12.6 gm/dl (10.1-14.3); Lymphocytes # (Auto) 1.5 K/mm3 (1.2-5.4); Lymphocytes % (Auto) 18.7 % (13.4-35.0); Mean Corpuscular HGB Conc 34 % (30-34); Mean Corpuscular Volume 98 fl (79-97); Monocytes # (Auto) 0.7 K/mm3 (0.0-0.8); Monocytes % (Auto) 8.9 % (0.0-7.3); Platelet Count 161 K/mm3 (140-440)
[2022-02-22 14:04] LABS: INR 0.87 (0.87-1.13)
[2022-02-22 14:05] LABS: Partial Thromboplastin Time 30.8 Sec. (24.2-36.6)
[2022-02-22 14:22] LABS: Albumin 4.3 g/dL (3.9-5); Calcium 10.3 mg/dL (8.4-10.2)
[2022-02-22 15:08] LABS: Chol/HDL Ratio 2.49 %
--- NOTE | 2022-02-22 15:16 | XRay Report ---
CHEST 2 VIEWS INDICATION: sob. COMPARISON: 08/25/2020 FINDINGS: SUPPORT DEVICES: None. HEART: Within normal limits. LUNGS/PLEURA: No acute air space or interstitial disease. No pneumothorax. ADDITIONAL FINDINGS: Left subclavian/axillary vascular stent again noted. IMPRESSION: 1. No acute findings. Signer Name: Teto Walden MD Signed: 02/22/2022 3:12 PM Workstation Name: [id number]
[2022-02-22] MEDS ORDERED: SODIUM CHLORIDE 0.9% 100 ML IV PRN (15:22)
[2022-02-22] MEDS ORDERED: HEPARIN 10,000 UNITS/10 ML VIAL IV PRN (15:22)
[2022-02-22] MEDS ORDERED: EPOETIN ALFA-EPBX 10,000 UNIT/1 ML VIAL SUB-Q PRN (15:22)
--- NOTE | 2022-02-22 15:25 | Consultation ---
History of Present Illness - Reason for Consult Consult date: 02/22/22 end stage renal disease Medications and Allergies Allergies Allergy/AdvReac Type Severity Reaction Status Date / Time No Known Allergies Allergy Verified 03/16/19 13:22 Home Medications Medication Instructions Recorded Confirmed Last Taken Type Simvastatin 20 mg PO DAILY 09/15/14 08/14/18 08/14/18 07:00 History 20 mg Doxazosin Mesylate [Cardura] 2 mg PO QHS #30 tablet 04/01/17 08/14/18 08/14/18 07:00 Rx 2 mg Clopidogrel Bisulfate [Plavix] 75 mg PO DAILY #90 tablet 06/18/18 08/14/18 08/14/18 Rx 75 mg Gabapentin 2 tab PO DAILY 06/18/18 08/14/18 08/14/18 07:00 History Latanoprost 0.005% 1 drop INTRAOCULA DAILY 06/18/18 08/14/18 08/13/18 History 1 drop Epoetin Ulises 10,000 Unit [Procrit] 10,000 unit SUB-Q VALARIE PRN #1 vial 08/18/18 Unknown Rx Ondansetron [Zofran TAB] 4 mg PO PRN PRN #15 tablet 08/18/18 Unknown Rx Sulfamethoxazole/Trimethoprim 1 each PO BID #20 tablet 08/18/18 Unknown Rx [Bactrim 400-80 mg Tablet] amLODIPine 10 mg PO QDAY #30 tablet 08/26/20 Unknown Rx cloNIDine [Catapres] 0.1 mg PO Q12HR #60 tablet 08/26/20 Unknown Rx hydrALAZINE [Apresoline TAB] 25 mg PO Q8HR #90 tablet 08/26/20 Unknown Rx Active Meds: Active Medications Epoetin Ulises-epbx (Epoetin Ulises-Epbx 10,000 Unit/1 Ml Vial) 10,000 unit SUB-Q VALARIE PRN PRN Reason: hemodialysis Heparin Sodium (Porcine) (Heparin 10,000 Units/10 Ml Vial) 3,000 unit IV VALARIE PRN PRN Reason: hemodialysis Sodium Chloride (Nacl 0.9%) 100 mls @ 999 mls/hr IV VALARIE PRN PRN Reason: Hypotension Exam - Vital Signs Vital signs: Vital Signs Temp Pulse Resp BP Pulse Ox 98.7 F 66 16 156/80 100 02/22/22 12:18 02/22/22 12:18 02/22/22 12:18 02/22/22 12:18 02/22/22 12:18 Results - Lab Results 02/22/22 13:30 02/22/22 13:30 Most recent lab results Calcium 10.3 mg/dL (8.4-10.2) H 02/22/22 13:30 Phosphorus 3.80 mg/dL (2.5-4.5) 02/22/22 13:30 Magnesium 2.60 mg/dL (1.7-2.3) H 02/22/22 13:30
[2022-02-22 17:50] LABS: Hepatitis B Surface Antigen Non-Reactive (Negative); Hepatitis C Virus Antibody Reactive (NonReactive)
[2022-02-22] MEDS ORDERED: ONDANSETRON 4 MG/2 ML INJ IV PRN (22:08)
[2022-02-22] MEDS ORDERED: ACETAMINOPHEN 325 MG TAB PO PRN (22:08)
[2022-02-22] MEDS ORDERED: oxyCODONE /ACETAMINOPHEN 5-325MG TAB PO PRN (22:08)
[2022-02-22] MEDS ORDERED: MORPHINE 2 MG/1 ML INJ IV PRN (22:08)
[2022-02-22] MEDS ORDERED: HEPARIN 5,000 UNIT/1 ML VIAL SUB-Q SCH (22:15)
[2022-02-22 23:08] VITALS: BP 157/63
--- NOTE | 2022-02-23 07:58 | History and Physical Report ---
History of Present Illness Date of examination: 02/22/22 Date of admission: 02/22/22 22:08 Chief complaint: Increasing shortness of breath and altered sensorium History of present illness: 81-year-old female was sent from dialysis with positive acting differently as per dialysis staff. Increasing shortness of breath present. Daughter states that her behavior is different from the baseline. That she is more confused. Also more short of breath. Patient has a history of coronary artery disease, hypertension and renal disease and peripheral neuropathy. Patient on hemodialysis 3 times a week. - Past Medical History --Hypertension: Yes --Renal Disease: Yes (T, , Monday) --Arthritis: Yes (Knees) --Dementia: Yes --Additional medical history: Gout, Cholesterol Alzheimer's - Surgical History --Additional Surgical History: Hysterectomy, MARIYA fistula, stent to leg - Social History --Smoking Status: Current Every Day Smoker --Substance Use Type: None - Family history --Htn - Medications Home Medications: Home Medications Medication Instructions Recorded Confirmed Last Taken Type Simvastatin 20 mg PO DAILY 09/15/14 08/14/18 08/14/18 07:00 History 20 mg Doxazosin Mesylate [Cardura] 2 mg PO QHS #30 tablet 04/01/17 08/14/18 08/14/18 07:00 Rx 2 mg Clopidogrel Bisulfate [Plavix] 75 mg PO DAILY #90 tablet 06/18/18 08/14/18 08/14/18 Rx 75 mg Gabapentin 2 tab PO DAILY 06/18/18 08/14/18 08/14/18 07:00 History Latanoprost 0.005% 1 drop INTRAOCULA DAILY 06/18/18 08/14/18 08/13/18 History 1 drop Epoetin Ulises 10,000 Unit [Procrit] 10,000 unit SUB-Q VALARIE PRN #1 vial 08/18/18 Unknown Rx Ondansetron [Zofran TAB] 4 mg PO PRN PRN #15 tablet 08/18/18 Unknown Rx Sulfamethoxazole/Trimethoprim 1 each PO BID #20 tablet 08/18/18 Unknown Rx [Bactrim 400-80 mg Tablet] amLODIPine 10 mg PO QDAY #30 tablet 08/26/20 Unknown Rx cloNIDine [Catapres] 0.1 mg PO Q12HR #60 tablet 08/26/20 Unknown Rx hydrALAZINE [Apresoline TAB] 25 mg PO Q8HR #90 tablet 08/26/20 Unknown Rx Review of Systems ROS: Stated complaint: AMS Other details as noted in HPI Comment: All other systems reviewed and negative Constitutional: denies: chills, fever Medications and Allergies Allergies Allergy/AdvReac Type Severity Reaction Status Date / Time No Known Allergies Allergy Verified 03/16/19 13:22 Home Medications Medication Instructions Recorded Confirmed Last Taken Type Simvastatin 20 mg PO DAILY 09/15/14 08/14/18 08/14/18 07:00 History 20 mg Doxazosin Mesylate [Cardura] 2 mg PO QHS #30 tablet 04/01/17 08/14/18 08/14/18 07:00 Rx 2 mg Clopidogrel Bisulfate [Plavix] 75 mg PO DAILY #90 tablet 06/18/18 08/14/18 08/14/18 Rx 75 mg Gabapentin 2 tab PO DAILY 06/18/18 08/14/18 08/14/18 07:00 History Latanoprost 0.005% 1 drop INTRAOCULA DAILY 06/18/18 08/14/18 08/13/18 History 1 drop Epoetin Ulises 10,000 Unit [Procrit] 10,000 unit SUB-Q VALARIE PRN #1 vial 08/18/18 Unknown Rx Ondansetron [Zofran TAB] 4 mg PO PRN PRN #15 tablet 08/18/18 Unknown Rx Sulfamethoxazole/Trimethoprim 1 each PO BID #20 tablet 08/18/18 Unknown Rx [Bactrim 400-80 mg Tablet] amLODIPine 10 mg PO QDAY #30 tablet 08/26/20 Unknown Rx cloNIDine [Catapres] 0.1 mg PO Q12HR #60 tablet 08/26/20 Unknown Rx hydrALAZINE [Apresoline TAB] 25 mg PO Q8HR #90 tablet 08/26/20 Unknown Rx Exam - Constitutional Vitals: Temp Pulse Resp BP Pulse Ox 98.2 F 75 18 157/63 100 02/22/22 22:00 02/22/22 22:00 02/22/22 22:00 02/22/22 22:00 02/22/22 22:00 General appearance: Present: mild distress, well-nourished - EENT Eyes: Present: PERRL ENT: hearing intact, clear oral mucosa - Neck Neck: Present: supple, normal ROM - Respiratory Respiratory effort: normal Respiratory: bilateral: CTA - Cardiovascular Heart rate: 78 Rhythm: regular Heart Sounds: Present: S1 & S2. Absent: rub, click - Extremities Extremities: pulses symmetrical, No edema Peripheral Pulses: within normal limits - Abdominal General gastrointestinal: Present: soft, non-tender, non-distended, normal bowel sounds Female genitourinary: Present: normal - Integumentary Integumentary: Present: clear, warm, dry - Musculoskeletal Musculoskeletal: gait normal, strength equal bilaterally - Psychiatric Psychiatric: appropriate mood/affect, intact judgment & insight - Neurologic Neurologic: CNII-XII intact, moves all extremities HEART Score - HEART Score Troponin: Troponin T 0.041 ng/mL (0.00-0.029) H 02/22/22 13:30 Results - Labs CBC & Chem 7: 02/22/22 13:30 02/22/22 13:30 Labs: Laboratory Last Values WBC 8.1 K/mm3 (4.5-11.0) 02/22/22 13:30 RBC 3.80 M/mm3 (3.65-5.03) 02/22/22 13:30 Hgb 12.6 gm/dl (10.1-14.3) 02/22/22 13:30 Hct 37.0 % (30.3-42.9) 02/22/22 13:30 MCV 98 fl (79-97) H 02/22/22 13:30 MCH 33 pg (28-32) H 02/22/22 13:30 MCHC 34 % (30-34) 02/22/22 13:30 RDW 15.0 % (13.2-15.2) 02/22/22 13:30 Plt Count 161 K/mm3 (140-440) 02/22/22 13:30 Lymph % (Auto) 18.7 % (13.4-35.0) 02/22/22 13:30 [place] % (Auto) 8.9 % (0.0-7.3) H 02/22/22 13:30 Eos % (Auto) 0.8 % (0.0-4.3) 02/22/22 13:30 Baso % (Auto) 0.3 % (0.0-1.8) 02/22/22 13:30 Lymph # (Auto) 1.5 K/mm3 (1.2-5.4) 02/22/22 13:30 [place] # (Auto) 0.7 K/mm3 (0.0-0.8) 02/22/22 13:30 Eos # (Auto) 0.1 K/mm3 (0.0-0.4) 02/22/22 13:30 Baso # (Auto) 0.0 K/mm3 (0.0-0.1) 02/22/22 13:30 Seg Neutrophils % 71.3 % (40.0-70.0) H 02/22/22 13:30 Seg Neutrophils # 5.8 K/mm3 (1.8-7.7) 02/22/22 13:30 PT 12.8 Sec. (12.2-14.9) 02/22/22 13:30 INR 0.87 (0.87-1.13) 02/22/22 13:30 APTT 30.8 Sec. (24.2-36.6) 02/22/22 13:30 Sodium 136 mmol/L (137-145) L 02/22/22 13:30 Potassium 4.5 mmol/L (3.6-5.0) 02/22/22 13:30 Chloride 94.0 mmol/L (98-107) L 02/22/22 13:30 Carbon Dioxide 20 mmol/L (22-30) L 02/22/22 13:30 Anion Gap 27 mmol/L 02/22/22 13:30 BUN 52 mg/dL (7-17) H 02/22/22 13:30 Creatinine 11.2 mg/dL (0.6-1.2) H 02/22/22 13:30 Estimated GFR 4 ml/min 02/22/22 13:30 BUN/Creatinine Ratio 5 % 02/22/22 13:30 Glucose 97 mg/dL (65-100) 02/22/22 13:30 Lactic Acid 1.60 mmol/L (0.7-2.0) 02/22/22 13:26 Calcium 10.3 mg/dL (8.4-10.2) H 02/22/22 13:30 Phosphorus 3.80 mg/dL (2.5-4.5) 02/22/22 13:30 Magnesium 2.60 mg/dL (1.7-2.3) H 02/22/22 13:30 Total Bilirubin 0.40 mg/dL (0.1-1.2) 02/22/22 13:30 AST 23 units/L (5-40) 02/22/22 13:30 ALT 13 units/L (7-56) 02/22/22 13:30 Alkaline Phosphatase 68 units/L (35-129) 02/22/22 13:30 Ammonia < 10.0 umol/L (25-60) L 02/22/22 13:26 Troponin T 0.041 ng/mL (0.00-0.029) H 02/22/22 13:30 NT-Pro-B Natriuret Pep 8554 pg/mL (0-900) H 02/22/22 13:30 Total Protein 7.6 g/dL (6.3-8.2) 02/22/22 13:30 Albumin 4.3 g/dL (3.9-5) 02/22/22 13:30 Albumin/Globulin Ratio 1.3 % 02/22/22 13:30 Triglycerides 139 mg/dL (2-149) 02/22/22 13:30 Cholesterol 157 mg/dL (50-199) 02/22/22 13:30 LDL Cholesterol Direct 69 mg/dL (50-130) 02/22/22 13:30 HDL Cholesterol 63 mg/dL (40-59) H 02/22/22 13:30 Cholesterol/HDL Ratio 2.49 % 02/22/22 13:30 TSH 1.400 mlU/mL (0.270-4.200) 02/22/22 13:30 Hep Bs Antigen Non-reactive (Negative) 02/22/22 13:30 Hep B Core IgM Ab Non-reactive (NonReactive) 02/22/22 13:30 Hepatitis C Antibody Reactive (NonReactive) A 02/22/22 13:30 Short CBC 02/22/22 Range/Units 13:30 WBC 8.1 (4.5-11.0) K/mm3 Hgb 12.6 (10.1-14.3) gm/dl Hct 37.0 (30.3-42.9) % Plt Count 161 (140-440) K/mm3 BMP 02/22/22 13:30 Sodium 136 L Potassium 4.5 Chloride 94.0 L Carbon Dioxide 20 L BUN 52 H Creatinine 11.2 H Glucose 97 Calcium 10.3 H Cardiac Enzymes 02/22/22 Range/Units 13:30 Troponin T 0.041 H (0.00-0.029) ng/mL Liver Function 02/22/22 Range/Units 13:30 Total Bilirubin 0.40 (0.1-1.2) mg/dL AST 23 (5-40) units/L ALT 13 (7-56) units/L Alkaline Phosphatase 68 (35-129) units/L Albumin 4.3 (3.9-5) g/dL Assessment and Plan Advance Directives: Yes (Full code) VTE prophylaxis?: Chemical Plan of care discussed with patient/family: Yes - Patient Problems (1) Acute encephalopathy Status: Acute Plan to address problem: Secondary to uremia Should resolve with correction of uremia by hemodialysis (2) Volume overload Status: Acute Plan to address problem: Emergent hemodialysis (3) ESRD (end stage renal disease) on dialysis Status: Chronic Plan to address problem: Emergent hemodialysis requested nephrology consult requested (4) HTN (hypertension) Status: Chronic Plan to address problem: Continue antihypertensives and adjust medications (5) DVT prophylaxis Status: Acute Plan to address problem: On heparin and GI prophylaxis (6) Advance care planning Status: Acute Plan to address problem: Disease education conducted, care plan discussed, diagnosis discussed, prognosis discussed. Patient is full code. Patient and family acknowledges understanding and agreement with care plan. +30 minutes.
--- NOTE | 2022-02-23 08:02 | Discharge Summary ---
Providers - Providers Date of Admission: 02/22/22 22:08 Date of discharge: 02/23/22 Attending physician: TONY RYAN 02/22/22 22:08 Consult to Physician [CONS] Routine Comment: Consulting Provider: AIDE ORTIZ Physician Instructions: Reason For Exam: esrd Primary care physician: KELLY PRUITT JR, [employer] Hospitalization Condition: Stable Hospital course: History of present illness: 81-year-old female was sent from dialysis with positive acting differently as per dialysis staff. Increasing shortness of breath present. Daughter states that her behavior is different from the baseline. That she is more confused. Also more short of breath. Patient has a history of coronary artery disease, hypertension and renal disease and peripheral neuropathy. Patient on hemodialysis 3 times a week. Patient signed out AMA in spite of urging her to stay till 8 AM for more stabilization Assessment and Plan Advance Directives: Yes (Full code) VTE prophylaxis?: Chemical Plan of care discussed with patient/family: Yes - Patient Problems (1) Acute encephalopathy Status: Acute Plan to address problem: Secondary to uremia Should resolve with correction of uremia by hemodialysis (2) Volume overload Status: Acute Plan to address problem: Emergent hemodialysis (3) ESRD (end stage renal disease) on dialysis Status: Chronic Plan to address problem: Emergent hemodialysis requested nephrology consult requested (4) HTN (hypertension) Status: Chronic Plan to address problem: Continue antihypertensives and adjust medications (5) DVT prophylaxis Status: Acute Plan to address problem: On heparin and GI prophylaxis (6) Advance care planning Status: Acute Plan to address problem: Disease education conducted, care plan discussed, diagnosis discussed, prognosis discussed. Patient is full code. Patient and family acknowledges understanding and agreement with care plan. +30 minutes. Disposition: LEFT AGAINST MEDICAL ADVICE Final Discharge Diagnosis (Prints w/discharge instructions): Acute encephalopathy. Volume overload. Acute end-stage renal disease on hemodialysis. Hypertension Time spent for discharge: 35 minutes - Discharge Diagnoses (1) Acute encephalopathy Status: Acute (2) Volume overload Status: Acute (3) ESRD (end stage renal disease) on dialysis Status: Chronic (4) HTN (hypertension) Status: Chronic (5) DVT prophylaxis Status: Acute (6) Advance care planning Status: Acute Core Measure Documentation - Palliative Care Palliative Care/ Comfort Measures: Not Applicable - Core Measures Any of the following diagnoses?: none Exam - Constitutional Vitals: Temp Pulse Resp BP Pulse Ox 98.2 F 75 18 157/63 100 02/22/22 22:00 02/22/22 22:00 02/22/22 22:00 02/22/22 22:00 02/22/22 22:00 General appearance: Present: no acute distress, well-nourished - EENT Eyes: Present: PERRL ENT: hearing intact, clear oral mucosa - Neck Neck: Present: supple, normal ROM - Respiratory Respiratory effort: normal Respiratory: bilateral: CTA - Cardiovascular Heart rate: 78 Rhythm: regular Heart Sounds: Present: S1 & S2. Absent: rub, click - Extremities Extremities: pulses symmetrical, No edema Peripheral Pulses: within normal limits - Abdominal General gastrointestinal: Present: soft, non-tender, non-distended, normal bowel sounds Female genitourinary: Present: normal - Integumentary Integumentary: Present: clear, warm, dry - Musculoskeletal Musculoskeletal: gait normal, strength equal bilaterally - Psychiatric Psychiatric: appropriate mood/affect, intact judgment & insight - Neurologic Neurologic: CNII-XII intact, moves all extremities Plan Activity: no restrictions Diet: renal Follow up with: KELLY PRUITT JR [employer] [Primary Care Provider] - 3-5 Days Forms: AMA Form
[2022-02-23] MEDS ORDERED: FAMOTIDINE 10 MG TAB PO SCH (10:00)
== END 2022-02-22 23:48 | disposition left against medical advice (07) | DRG 640 ==
LOC: ED 12:08 → 3A 22:08
PROVIDERS: ADMIT Internal Medicine; ATTEND Internal Medicine
PROC: 5A1D70Z Performance of Urinary Filtration, Intermittent, Less than 6 Hours Per Day (ICD-10-PCS; principal; 2022-02-22)
DX: E87.70 Fluid overload, unspecified (principal); N18.6 End stage renal disease; G93.40 Encephalopathy, unspecified; I12.0 Hypertensive chronic kidney disease with stage 5 chronic kidney disease or end stage renal disease; M17.0 Bilateral primary osteoarthritis of knee; G30.9 Alzheimer's disease, unspecified; F02.80 Dementia in other diseases classified elsewhere, unspecified severity, without behavioral disturbance, psychotic disturbance, mood disturbance, and anxiety; Z90.710 Acquired absence of both cervix and uterus; F17.200 Nicotine dependence, unspecified, uncomplicated; M10.9 Gout, unspecified; I25.10 Atherosclerotic heart disease of native coronary artery without angina pectoris; Z82.49 Family history of ischemic heart disease and other diseases of the circulatory system; Z53.29 Procedure and treatment not carried out because of patient's decision for other reasons; Z99.2 Dependence on renal dialysis
CPT/HCPCS: 36415; 70450; 71046; 80053; 80061; 80074; 82140; 83735; 83880; 84100; 84443; 84484; 85025; 85610; 85730; G0378; J0885